=== PATIENT | female | born 1995 | race Caucasian/White ===

== ENCOUNTER 2017-05-16 11:35 | Emergency (ER) | payer BC ==
[~2017-05-16] VITALS: Ht 162.6 cm; Wt 59.0 kg
[~2017-05-16 11:35] MED LIST: ACET-2267 PO; AMOX400T12 PO; CETI10CA PO; FLUT16SP22 NS; IBUP-1773 PO; LEVO500T2 PO; NORG1TAB7 PO; PREN-37 PO; [UNRECOGNIZED DRUG - REMARK]
--- NOTE | 2017-05-16 12:01 | ED GU-Female ---
General Chief Complaint: -Female Stated Complaint: CRAMPING/BLEEDING/11WKS PREG Source: patient Exam Limitations: no limitations History of Present Illness Time seen by provider: 12:00 Initial Comments To ER with reports of suprapubic abdominal cramping and passage of blood clots from the vagina. Began yesterday. She is 11 weeks gestation, G2 1 AB 0. She denies fevers or chills. Timing/Duration: constant, yesterday Severity/Quality: cramping Location: suprapubic Radiation: none Activities at Onset: none Prior Genitourinary Problems: none Allergies and Home Medications Allergies Coded Allergies: NKANo Known Allergies (Unverified Allergy, Mild, 01/16/10) peach (Unverified Allergy, Unknown, 04/22/16) FROM UNCODED ALLERGIES Home Medications Acetaminophen 500 Mg Tablet, 1,000 MG PO Q4H PRN for TEMPERATURE, (Reported) Ibuprofen 600 Mg Tablet, 600 MG PO Q6H, #90 Ref 0 Prescribed by: VERONA HUI on 04/22/16 1250 Levofloxacin 500 Mg Tablet, 500 MG PO DAILY, #5 Ref 0 Prescribed by: ALCON SANDHU on 09/12/16 1511 Norgestimate-Ethinyl Estradiol 1 Each Tablet, 1 TAB PO DAILY, #28 (Reported) Constitutional: see HPI EENTM: see HPI Respiratory: no symptoms reported Cardiovascular: no symptoms reported Genitourinary: see HPI Musculoskeletal: no symptoms reported Skin: no symptoms reported Psychiatric/Neurological: No Symptoms Reported Past [id number] Hx Patient Social History Recent Foreign Travel: No Contact w/Someone Who Travel: No Recent Hopitalizations: No Immunizations Up To Date Tetanus Booster (TDap): Less than 5yrs PED Vaccines UTD: Yes Seasonal Allergies Seasonal Allergies: No Surgeries HX Surgeries: Yes (REPAIR OF ASD/VSD, MUSCULOSKELETAL SURGERY TO STRAIGHTEN LEFT ARM) Surgeries: Adenoidectomy, Cardiac, Tonsillectomy Respiratory Hx Respiratory Disorders: No Cardiovascular Hx Cardiac Disorders: Yes (ASD and VSD REPAIRED) Cardiac Disorders: Congenital Heart Disease Neurological Hx Neurological Disorders: Yes (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) Neurological Disorders: Cerebral Palsy, Stroke Reproductive System Hx Reproductive Disorders: No Sexually Transmitted Disease: No HIV/AIDS: No Female Reproductive Disorders: Denies Genitourinary Hx Genitourinary Disorders: No Gastrointestinal Hx Gastrointestinal Disorders: No Musculoskeletal Hx Musculoskeletal Disorders: No Endocrine Hx Endocrine Disorders: No HEENT HX ENT Disorders: No Cancer Hx Cancer: No Psychosocial Hx Psychiatric Problems: No Integumentary HX Skin/Integumentary Disorder: No Blood Transfusions Hx Blood Disorders: No Adverse Reaction to a Blood Tr: No Family Medical History Family Medial History: Asthma (FATHER) Cervical cancer 19 MOTHER Diabetes mellitus (PGM MGF) FH: cancer (FATHER MGF) FH: heart disease (MGM PGM MGF PGF BROTHER) FH: stroke (MGM) Hypertension (FATHER PGM MGF PGF) Osteoporosis (FATHER) Tetralogy of Fallot (BROTHER) Physical Exam Vital Signs Vital Sign - Last 12Hours 05/16/17 12:06 Temp 97.5 Pulse 86 Resp 16 B/P (MAP) 112/68 Capillary Refill : General Appearance: WD/WN, no apparent distress HEENT: PERRL/EOMI, normal ENT inspection Neck: non-tender, full range of motion Cardiovascular: regular rate, rhythm, no murmur Respiratory: normal breath sounds, no respiratory distress, no accessory muscle use Gastrointestinal: normal bowel sounds, non tender, soft Extremities: normal range of motion, non-tender Neurologic/Psychiatric: alert, normal mood/affect, oriented x 3 Skin: normal color, warm/dry Progress/Results/Core Measures Results/Orders Lab Results Laboratory Tests Test 05/16/17 12:20 Range/Units White Blood Count 8.9 4.3-11.0 10^3/uL Red Blood Count 4.22 L 4.35-5.85 10^6/uL Hemoglobin 13.0 11.5-16.0 G/DL Hematocrit 38 35-52 % Mean Corpuscular Volume 90 80-99 FL Mean Corpuscular Hemoglobin 31 25-34 PG Mean Corpuscular Hemoglobin Concent 34 32-36 G/DL Red Cell Distribution Width 13.2 10.0-14.5 % Platelet Count 230 130-400 10^3/uL Mean Platelet Volume 10.2 7.4-10.4 FL Neutrophils (%) (Auto) 76 H 42-75 % Lymphocytes (%) (Auto) 16 12-44 % Monocytes (%) (Auto) 6 0-12 % Eosinophils (%) (Auto) 1 0-10 % Basophils (%) (Auto) 0 0-10 % Neutrophils # (Auto) 6.7 1.8-7.8 X 10^3 Lymphocytes # (Auto) 1.4 1.0-4.0 X 10^3 Monocytes # (Auto) 0.6 0.0-1.0 X 10^3 Eosinophils # (Auto) 0.1 0.0-0.3 10^3/uL Basophils # (Auto) 0.0 0.0-0.1 10^3/uL My Orders Orders - APOLINAR COTE APRN Ua Culture If Indicated (05/16/17 11:47) Cbc With Automated Diff (05/16/17 11:47) Hcg,Quantitative (05/16/17 11:47) Abo Rh Type (05/16/17 11:47) Us Ob<14 Wks Sngle W/Transvag (05/16/17 11:47) Vital Signs/I&O Vital Sign - Last 12Hours 05/16/17 12:06 Temp 97.5 Pulse 86 Resp 16 B/P (MAP) 112/68 Progress Note : Progress Note 1251--patient did pass a large amount of tissue in the vaginal vault. I was not able to identify a fetus. member of technical staff reports an empty uterus. Departure Impression Impression: Primary Impression: Miscarriage Disposition: 01 HOME, SELF-CARE Condition: Stable Departure-Patient Inst. Decision time for Depature: 12:52 Referrals: TESSIE RALPH MD (PCP/Family) Primary Care Physician Patient Instructions: Miscarriage Add. Discharge Instructions: 1. Return to ER for any fevers or chills 2. Follow-up with your doctor next week for recheck 3. All discharge instructions reviewed with patient and/or family. Voiced understanding. APOLINAR COTE APRN May 16, 2017 12:01
[2017-05-16 12:31] LABS: BASOPHILS % (AUTO) 0 % (0-10); EOSINOPHILS # (AUTO) 0.1 10^3/uL (0.0-0.3); EOSINOPHILS % (AUTO) 1 % (0-10); LYMPHOCYTES # (AUTO) 1.4 X 10^3 (1.0-4.0); LYMPHOCYTES % (AUTO) 16 % (12-44); MEAN CORPUSCULAR HEMOGLOBIN 31 PG (25-34); MEAN CORPUSCULAR HGB CONC 34 G/DL (32-36); MEAN CORPUSCULAR VOLUME 90 FL (80-99); MEAN PLATELET VOLUME 10.2 FL (7.4-10.4); MONOCYTES # (AUTO) 0.6 X 10^3 (0.0-1.0); MONOCYTES % (AUTO) 6 % (0-12); NEUTROPHILS # (AUTO) 6.7 X 10^3 (1.8-7.8); NEUTROPHILS % (AUTO) 76 % (42-75); PLATELET COUNT 230 10^3/uL (130-400); RED BLOOD COUNT 4.22 10^6/uL (4.35-5.85); RED CELL DISTRIBUTION WIDTH 13.2 % (10.0-14.5); WHITE BLOOD COUNT 8.9 10^3/uL (4.3-11.0)
--- NOTE | 2017-05-16 13:16 | Diagnostic Imaging Report ---
PROCEDURE: US OB SINGLE FETUS <14 WKS. TECHNIQUE: Multiple real-time grayscale images were obtained over the gravid uterus in various projections. INDICATION: Vaginal bleeding. Pelvic pain. History of passage of large clot. FINDINGS: The uterus is 7.1 x 6.9 x 5.8 cm. The endometrial stripe is 1.1 cm in thickness. No myometrial focal lesion is seen. There is no intrauterine identified. The right ovary is 3 x 2.6 x 2.5 cm, the left ovary is 3.2 x 2 x 1.4 cm. No adnexal mass is seen. No significant fluid collection or free fluid in noted in the pelvis. IMPRESSION: Given the provided history of passage of large clot, consider possibility of complete . Since no intrauterine is seen at this time, also the possibility of very early normal or occult ectopic could be considered. Correlate clinically, and followup serial beta-hCG and ultrasound if needed is recommended. Dictated by: Dictated on workstation # [id number]
== END 2017-05-16 13:07 | disposition home or self-care (01) ==
LOC: EDUNIT# 11:35 → ER 11:38
DX: O03.9 Complete or unspecified spontaneous abortion without complication (principal); Z86.73 Personal history of transient ischemic attack (TIA), and cerebral infarction without residual deficits; Z90.89 Acquired absence of other organs; Z90.49 Acquired absence of other specified parts of digestive tract; Z86.69 Personal history of other diseases of the nervous system and sense organs
CPT/HCPCS: 36415; 76801; 84702; 85025; 86900; 86901; 99283

== ENCOUNTER → 2017-11-19 | Outpatient (CLI) | payer OTHER, MEDICAID ==
--- NOTE | 2017-11-19 16:07 | Diagnostic Imaging Report ---
INDICATION: survey. TECHNIQUE: Multiple real-time grayscale images were obtained over the gravid uterus. COMPARISON: There are no prior studies for comparison. FINDINGS: There is a single live fetus in variable presentation. heart motion was noted and a rate of 155 BPM was recorded. There were no abnormalities identified. However the four-chamber heart view, the three-vessel cord and the bladder were not well imaged. I would recommend that a short-term (4-6 week) followup exam be performed for further evaluation. The placenta is along left lateral aspect of the uterus and fundal. There is no previa. The amniotic fluid volume is within normal limits. The growth parameters are fairly uniform. Biometrical measurements are as follows: Biparietal 3.5 cm, age 16 weeks 6 days. Head circumference 12.79 cm, age 16 weeks 4 days. Abdominal circumference 10.57 cm, age 16 weeks 4 days. Femur length 2.14 cm, age 16 weeks 3 days. Sonographic estimate age: 16 weeks 5 days. Sonographic estimated date of delivery: 05/01/2018. Estimated Weight: 158 gm (+/- 23 gm). LMP percentile: n/a%. heart rate: 155 beats per minute. number: 1 of 1. IMPRESSION: 1. There is a single live fetus approximately 16 weeks 5 days gestation +/- 1 week. The EDC is May 01, 2018. 2. There are no abnormalities identified. However the four-chamber heart view, the three-vessel cord and the bladder were not well imaged. Recommendations as above. 3. The growth parameters are fairly uniform. Dictated by: Dictated on workstation # [id number]
== END ==
LOC: RAD 15:00
PROVIDERS: ATTEND Family Medicine
DX: Z36.89 Encounter for other specified antenatal screening (principal); Z3A.16 16 weeks gestation of pregnancy
CPT/HCPCS: 76805

== ENCOUNTER → 2018-01-07 | Outpatient (CLI) | payer OTHER, MEDICAID ==
--- NOTE | 2018-01-07 17:09 | Diagnostic Imaging Report ---
INDICATION: survey. TECHNIQUE: Multiple real-time grayscale images were obtained over the gravid uterus. COMPARISON: 11/19/2017. FINDINGS: There is a single living intrauterine in a cephalic presentation. Biometry correlates with a gestational age of 23 weeks 6 days. There is normal volume of amniotic fluid. Placenta is on the left. There is no evidence of previa. Anatomical survey is unremarkable. This includes a three-vessel cord and four-chamber heart. Heart rate is 146 beats per minute and regular. IMPRESSION: Single living intrauterine with a sonographically estimated gestational age of 23 weeks 6 days and estimated date of confinement of April 30, 2018. Fetus is in a cephalic presentation. Biometrical measurements are as follows: Biparietal 5.96 cm, age 24 weeks 3 days. Head circumference 21.70 cm, age 23 weeks 6 days. Abdominal circumference 19.21 cm, age 24 weeks 0 days. Femur length 3.99 cm, age 23 weeks 0 days. Sonographic estimate age: 23 weeks 6 days. Sonographic estimated date of delivery: 04-30-2018. Estimated Weight: 604 gm (+/- 88 gm). LMP percentile: 33%. heart rate: 146 beats per minute. number: 1 of 1. Dictated by: Dictated on workstation # [id number]
== END ==
LOC: RAD 12:54
PROVIDERS: ATTEND Family Medicine
DX: Z36.89 Encounter for other specified antenatal screening (principal); Z3A.23 23 weeks gestation of pregnancy
CPT/HCPCS: 76816

== ENCOUNTER → 2018-03-04 | Outpatient (CLI) | payer OTHER, MEDICAID ==
--- NOTE | 2018-03-04 15:34 | Diagnostic Imaging Report ---
INDICATION: Small for dates. TECHNIQUE: Multiple real-time grayscale images were obtained over the gravid uterus. COMPARISON: 01/07/2018. FINDINGS: There is a single live fetus in a cephalic presentation. The placenta is posterior. The amniotic fluid index is 8.1 cm. heart rate was recorded at 130 beats per minute. No gross abnormality is seen. Biometrical measurements are as follows: Biparietal 7.9 cm, age 31 weeks 5 days. Head circumference 28.0 cm, age 30 weeks 5 days. Abdominal circumference 27.5 cm, age 31 weeks 4 days. Femur length 5.9 cm, age 30 weeks 5 days. Sonographic estimate age: 31 weeks 2 days. Sonographic estimated date of delivery: 05/04/18. Estimated Weight: 1714 gm (+/- 250 gm). LMP percentile: 23%. heart rate: 130 beats per minute. number: 1 of 1. IMPRESSION: Single live IUP at approximately 31 weeks gestational age showing normal interval growth when compared with exam from 01/07/2018. Dictated by: Dictated on workstation # [id number]
== END ==
LOC: RAD 11:21
PROVIDERS: ATTEND Family Medicine
DX: Z34.83 Encounter for supervision of other normal pregnancy, third trimester (principal); Z3A.31 31 weeks gestation of pregnancy
CPT/HCPCS: 76816

== ENCOUNTER 2018-03-05 20:13 | Emergency (ER) | payer OTHER, MEDICAID ==
[~2018-03-05] VITALS: Ht 157.5 cm; Wt 60.3 kg
--- OUTSIDE RECORDS SUMMARY | 2018-03-05 20:18 | XMS REPORT ---
Author Author NIRMAL BECKMAN [facility] eClinicalWorks Address Unknown Phone Unavailable Care Team Providers Care Funeral Pre Arrangement Counselor Name Role Phone NIRMAL BECKMAN Unavailable Allergies No Known Allergies Problems No Known Problems Medications No Known Medications Results No Known Results Summary Purpose eClinicalWorks Submission
--- OUTSIDE RECORDS SUMMARY | 2018-03-05 20:18 | XMS REPORT ---
Author Author NIRMAL BECKMAN [facility] eClinicalWorks Address Unknown Phone Unavailable Care Team Providers Care Grocery Store Clerk Name Role Phone NIRMAL BECKMAN CP Unavailable Allergies No Known Allergies Problems Problem Type Condition Code Onset Dates Condition Status Problem Breech presentation, not applicable or unspecified fetus O32.1XX0 Active Problem Encounter for immunization Z23 Active Problem Right acute otitis media H66.91 Active Problem care, first , third trimester Z34.03 Active Medications No Known Medications Results No Known Results Summary Purpose eClinicalWorks Submission
--- OUTSIDE RECORDS SUMMARY | 2018-03-05 20:18 | XMS REPORT ---
Author Author CHEMA PENN [facility] eClinicalWorks Address Unknown Phone Unavailable Care Team Providers Care Inventory Coordinator Name Role Phone CHEMA PENN Unavailable Allergies No Known Allergies Problems Problem Type Condition Code Onset Dates Condition Status Assessment Encounter for test, result positive Z32.01 Active Problem Physical exam Z00.00 Active Medications No Known Medications Procedures Procedure Coding System Code Date URINE TEST CPT-4 94898 Sep 19, 2015 Results No Known Results Summary Purpose eClinicalWorks Submission
--- OUTSIDE RECORDS SUMMARY | 2018-03-05 20:19 | XMS REPORT ---
Author TESSIE So [facility] eClinicalWorks Address Unknown Phone Unavailable Care Team Providers Care Plastic Tile Layer Name Role Phone TESSIE RALPH CP Unavailable Allergies, Adverse Reactions, Alerts Substance Reaction Event Type peaches Info Not Available Non Drug Allergy Problems Problem Type Condition Code Onset Dates Condition Status Problem Breech presentation, not applicable or unspecified fetus O32.1XX0 Active Problem Encounter for immunization Z23 Active Problem Right acute otitis media H66.91 Active Problem care, first , third trimester Z34.03 Active Assessment Routine follow-up Z39.2 Active Medications Medication Code System Code Instructions Start Date End Date Status Dosage Laure (28) [facility] [place] [id number] 0.18/0.215/0.25 MG-35 MCG Orally Once a day Jun 05, 2016 1 tablet Procedures Procedure Coding System Code Date Office Visit, Est Pt., Level 3 CPT-4 52668 Jun 05, 2016 Results No Known Results Summary Purpose eClinicalWorks Submission
--- OUTSIDE RECORDS SUMMARY | 2018-03-05 20:19 | XMS REPORT ---
Author Author NIRMAL BECKMAN [facility] Address [address] [place] [address] Care Team Providers Care Reliability Technicians Name Role Phone NIRMAL BECKMAN Unavailable PROBLEMS Type Condition ICD9-CM Code UHQ43-YR Code Onset Dates Condition Status SNOMED Code Problem Right acute otitis media H66.91 Active 765337659 Problem Breech presentation, not applicable or unspecified fetus O32.1XX0 Active 0608839 Problem Encounter for immunization Z23 Active 627529593 Problem care, first , third trimester Z34.03 Active 325778708 ALLERGIES No Known Allergies SOCIAL HISTORY No smoking Hx information available PLAN OF CARE VITAL SIGNS MEDICATIONS No Known Medications RESULTS No Results PROCEDURES No Known procedures IMMUNIZATIONS No Known Immunizations
--- OUTSIDE RECORDS SUMMARY | 2018-03-05 20:19 | XMS REPORT ---
Author Author SHAW IAN Organization [facility] Address [address] [place] [address] Care Team Providers Care Sweep Press Operator Name Role Phone IAN SQUIRES Unavailable PROBLEMS Type Condition ICD9-CM Code LUR58-CM Code Onset Dates Condition Status SNOMED Code Problem Right acute otitis media H66.91 Active 625620825 Problem Breech presentation, not applicable or unspecified fetus O32.1XX0 Active 0561425 Problem Encounter for immunization Z23 Active 368160186 Problem care, first , third trimester Z34.03 Active 597421304 ALLERGIES Substance Reaction Event Type Date Status peaches Unknown Non Drug Allergy Oct, Active SOCIAL HISTORY No smoking Hx information available PLAN OF CARE Activity Details Follow Up 2 - 3 Days, prn Reason: VITAL SIGNS Height 62.5 in 2016-10-18 Weight 115.4 lbs 2016-10-18 Temperature 97.9 degrees Fahrenheit 2016-10-18 Heart Rate 76 bpm 2016-10-18 Respiratory Rate 18 2016-10-18 BMI 20.77 kg/m2 2016-10-18 Blood pressure systolic 108 mmHg 2016-10-18 Blood pressure diastolic 64 mmHg 2016-10-18 MEDICATIONS Medication Instructions Dosage Frequency Start Date End Date Duration Status Amoxicillin 500 MG Orally 3 times a day 1 tablet 8h Oct, Oct, 10 day(s) Active RESULTS Name Result Date Reference Range STREP A (IN HOUSE) 2016-10-18 STREP A positive Control + Lot # [id number] Exp date april 29 PROCEDURES Procedure Date Ordered Related Diagnosis Body Site STREP A ASSAY W/OPTIC Oct 18, 2016 Office Visit, Est Pt., Level 3 Oct 18, 2016 IMMUNIZATIONS No Known Immunizations
--- OUTSIDE RECORDS SUMMARY | 2018-03-05 20:19 | XMS REPORT ---
Author Author TESSIE RALPH Organization [facility] Address [address] [place] [address] Care Team Providers Care Sausage Wrapper Name Role Phone TESSIE RALPH Unavailable PROBLEMS Type Condition ICD9-CM Code TRE76-FW Code Onset Dates Condition Status SNOMED Code Problem Missed period N92.6 Active 13209811 ALLERGIES Substance Reaction Event Type Date Status peaches Unknown Non Drug Allergy Apr, Active ENCOUNTERS Encounter Location Date Diagnosis [facility] [id number] [place] [address] 61666- 0199 Jan, [facility] [address] [address]098 Dec, care, first , third trimester Z34.03 [facility] [id number] [place] [address] 35413- 5198 Nov, Encounter for supervision of normal first in second trimester Z34.02 [facility] [id number] [place] [address] 80727- 2700 Nov, [facility] [id number] [place] [address] 56381- 8386 Oct, Normal in multigravida Z34.80 [facility] [id number] [place] [address] 78187- 2038 Oct, [facility] [id number] [place] [address] 21801- 9545 Oct, [facility] [id number] [place] [address] 49034- 5273 Oct, [facility] [id number] [place] [address] 82400 -0248 Oct, Missed period N92.6 [facility] [id number] [place] [address] 21187 -1436 May, Acute suppurative otitis media of left ear without spontaneous rupture of tympanic membrane, recurrence not specified H66.002 [place] [id number] [place] [address] 51815- 4481 May, in first trimester Z33.2 [place] [address] 030[address]- 2936 May, [place] [address] 20250- 5660 Apr, 9 weeks gestation of Z3A.09 and Normal in multigravida Z34.80 [place] [address] 41278- 8601 Apr, [place] [address] 55575- 1002 Apr, [facility] [place] [id number] [place] [address] 95807 -8168 Apr, Positive test Z32.01 and Otalgia of right ear H92.01 [facility] [place] [id number] [place] [address] 92357 -2102 Mar, Abrasion, foot, right, initial encounter S90.811A [place] [id number] [place] [address] 97614- 6752 February, [place] [id number] [place] [address] 14154- 2875 Jan, [place] [address] 65517- 5282 Nov, [facility] [id number] [place] [address] 30719 -5560 Oct, Sore throat J02.9 and Strep throat J02.0 [facility] [address] [address] Sep, [facility] [address] [address] 2815 Aug, [facility] [address] [place] [address]- 4394 Aug, [facility] [address], [place] [address]- 6625 Jun, [facility] [address], [place] [address]- 2[address] May, [facility] [address] [address]- 8679 May, Routine follow-up Z39.2 [facility] [address] [place] [address] Apr, Right acute otitis media H66.91 [facility] [address], [place] [address]- 15[address] Apr, [facility] [address], [place] [address]- 5[address] Apr, care, first , third trimester Z34.03 and 39 weeks gestation of Z3A.39 [facility] [address], [place] [address] 0678 Mar, care, first , third trimester Z34.03 and 38 weeks gestation of Z3A.38 [facility] [address], [place] [address] 5[address] Mar, [facility] [address] [place] [address]- 3923 Mar, care, first , third trimester Z34.03 and 36 weeks gestation of Z3A.36 [facility] [id number], [place] [address]- 7297 Mar, [place] [address], [place] [address]- 4988 Mar, [place] [id number] [place] [address] 50317- 1102 Mar, [place] [id number] [place] [address] 00102- 2248 Mar, screening for streptococcus B Z36 ; care , first , third trimester Z34.03 ; Breech presentation, not applicable or unspecified fetus O32.1XX0 and 35 weeks gestation of Z3A.35 [place] [id number] [place] [address] 89832- 0929 02 Mar, 2016 care, first , third trimester Z34.03 ; 34 weeks gestation of Z3A.34 and Breech presentation, not applicable or unspecified fetus O32.1XX0 [place] [id number] [place] [address] 53015- 6569 February, care, first , third trimester Z34.03 ; 32 weeks gestation of Z3A.32 ; Syncope, unspecified syncope type R55 ; Poor appetite R63.0 ; Acute midline low back pain without sciatica M54.5 and Encounter for immunization Z23 [address] [place] [address] 94713- 0549 February, [place] [id number] [place] [address] 86068- 8232 February, [place] [id number] [place] [address] 39173- 1639 February, care, first , third trimester Z34.03 and 30 weeks gestation of Z3A.30 [place] [id number] [place] [address] 81171- 4210 08 Jan, 2016 Encounter for supervision of normal first in second trimester Z34.02 ; Diabetes mellitus screening Z13.1 ; Screening, iron deficiency anemia Z13.0 and 26 weeks gestation of Z3A.26 [place] [address], [place] [address]- 2896 Jan, [place] [address], [place] [address]- 4273 Dec, [place] [address], [place] [address]- 0130 Dec, [place] [address], [place] [address]- 2751 Dec, Encounter for supervision of normal first in second trimester Z34.02 and 22 weeks gestation of Z3A.22 [place] [address], [place] [address]- 12[address] Dec, [place] [address], [place] [address]- 2694 Dec, Acute upper respiratory infection, unspecified J06.9 and Other viral agents as the cause of diseases classified elsewhere B97.89 [place] [address], [place] [address]- 1515 Nov, Encounter for supervision of normal first in second trimester Z34.02 ; Vaginal candidiasis B37.3 and 18 weeks gestation of Z3A.18 [place] [address], [place] [address]- 3460 Nov, [place] [address], [place] [address]- 6122 Oct, [place] [id number], [place] [address]- 5911 Oct, [place] [address], [place] [address]- 2885 Oct, Encounter for supervision of normal first in second trimester Z34.02 and 15 weeks gestation of Z3A.15 [place] [id number], [place] [address]- 6042 Sep, Encounter for supervision of normal first in first trimester Z34.01 ; Z33.1 and 11 weeks gestation of Z3A.11 [facility] [address], [place] [address]- 9809 Sep, [facility] [address] [id number] [place] [address] Sep [facility] [id number] [place] [address] 65709 -9471 Sep, Encounter for test, result positive Z32.01 [facility] [id number] [place] [address] 29125- 1570 17 Aug, 2015 Environmental allergies Z91.09 and Sore throat J02.9 [facility] [id number] [place] [address] 25196- 9504 Jul, Physical exam Z00.00 [facility] [address] [place] [address] [id number] May, Dental examination V72.2 [facility] [id number] [place] [address] 15378- 1368 Jan, [facility] [id number] [place] [address] 51720- 8085 Jan, [facility] [id number] [place] [address] 73358- 7520 Dec, [facility] [id number] [place] [address] 01361- 4953 Dec, [facility] [id number] [place] [address] 89627- 5447 Sep, [facility] [id number] [place] [address] 37225- 1020 Sep, [facility] [id number] [place] [address] 06851- 5501 Aug, [facility] [id number] [place] [address] 53270- 6343 Aug, [facility] [address] [id number] [place] [address]- 8625 Jan, [facility] [address] [id number] [place] [address]- 8699 Jan, [facility] [place] [facility] [address] [id number] [place] [address]- 7796 Sep, [facility] [place] [facility] [address] [id number] [place] [address]- 3640 Sep, [facility] [place] [facility] [address] [id number] [place] [address]- 1356 Sep, [facility] [place] [facility] [address] [id number] [place] [address]- 3659 Sep, [facility] [address] [id number] [place] [address]- 3025 Jan, [facility] [address] [id number] [place] [address]- 0837 Nov, [facility] [address] [id number] [place] [address]- 9776 Oct, [facility] [address] [id number] [place] [address]- 1344 Jul, [facility] [place] [facility] [address] [id number] [place] [address]- 0374 Jul, [facility] [place] [facility] [address] [id number] [place] [address]- 2932 Jul, [facility] [place] [facility] [address] [id number] [place] [address]- 1792 Jul, [facility] [place] [facility] [address] [id number] [place] [address]- 2209 Oct, [facility] [place] [facility] [address] [id number] [place] [address]- 6216 Dec, [facility] [place] [facility] [address] [id number] [address]- 4766 Jul, [facility] [id number], [place] [address]- 9623 May, [facility] [id number], [place] [address]- 5466 Mar, [facility] [address], [place] [address]- 0546 Sep, [facility] [address], [place] [address]- 5678 Sep, [facility] [address], [place] [address]- 9834 Jul, [facility] [address], [place] [address]- 4514 Jul, [facility] [address], [place] [address]- 9401 February, [facility] [id number], [place] [address]- 7684 Jan, IMMUNIZATIONS No Known Immunizations SOCIAL HISTORY Never Assessed REASON FOR VISIT OB-intake -- vincent agudelo PLAN OF CARE Activity Details Follow Up 4 Weeks Reason: VITAL SIGNS Height 62.5 in 2017-05-07 Weight 108.7 lbs 2017-05-07 Temperature 98.7 degrees Fahrenheit 2017-05-07 BMI 19.565 kg/m2 2017-05-07 Blood pressure systolic 118 mmHg 2017-05-07 Blood pressure diastolic 76 mmHg 2017-05-07 MEDICATIONS Medication Instructions Dosage Frequency Start Date End Date Duration Status Vitamins (Dis) Active RESULTS Name Result Date Reference Range TSH () 2017-05-07 TSH 0.801 0.450-4.500 CBC 2017-05-07 WBC 6.9 3.4-10.8 RBC 3.99 3.77-5.28 Hemoglobin 12.3 11.1-15.9 Hematocrit 36.3 34.0-46.6 MCV 91 79-97 MCH 30.8 26.6-33.0 MCHC 33.9 31.5-35.7 RDW 13.3 12.3-15.4 Platelets 285 150-379 Neutrophils 65 Lymphs 27 Monocytes 6 Eos 1 Basos 1 Neutrophils (Absolute) 4.5 1.4-7.0 Lymphs (Absolute) 1.8 0.7-3.1 Monocytes(Absolute) 0.4 0.1-0.9 Eos (Absolute) 0.1 0.0-0.4 Baso (Absolute) 0.1 0.0-0.2 Immature Granulocytes 0 Immature Grans (Abs) 0.0 0.0-0.1 ANTIBODY SCREEN 2017-05-07 Antibody Screen Negative Negative RUBELLA ANTIBODIES, IgG 2017-05-07 Rubella Antibodies, IgG 2.21 Immune >0.99 CULTURE, URINE 2017-05-07 Urine Culture, Routine Final report Result 1 No growth TRICHOMONAS (IN HOUSE) 2017-05-07 TRICHOMONAS negative Control + Lot # [id number] Exp date 06/2018 URINE DRUG SCREEN (IN HOUSE) 2017-05-07 Lot # [id number] Exp date 08/2018 Control normal COCAINE negative AMPH negative MTD negative THC negative OPIATE negative BENZO negative PCP negative BAR negative OXY negative MAMP negative TCA negative BUP Not Tested MDMA negative UA LONG DIP (IN HOUSE) 2017-05-07 Lot # [id number] Exp date 02/2018 Clarity slightly cloudy Color yellow Odor none GLU negative NINA negative KET negative SG 1.015 BLO negative pH 8.5 Protein 2+ URO 1.0 NIT negative ANUPAM negative Lot # Exp BACTERIAL VAGINOSIS (IN HOUSE) 2017-05-07 RESULTS negative Control + Lot # [id number] Exp date 11/30 TSH () 2017-05-07 TSH 0.801 0.450-4.500 CBC 2017-05-07 WBC 6.9 3.4-10.8 RBC 3.99 3.77-5.28 Hemoglobin 12.3 11.1-15.9 Hematocrit 36.3 34.0-46.6 MCV 91 79-97 MCH 30.8 26.6-33.0 MCHC 33.9 31.5-35.7 RDW 13.3 12.3-15.4 Platelets 285 150-379 Neutrophils 65 Lymphs 27 Monocytes 6 Eos 1 Basos 1 Neutrophils (Absolute) 4.5 1.4-7.0 Lymphs (Absolute) 1.8 0.7-3.1 Monocytes(Absolute) 0.4 0.1-0.9 Eos (Absolute) 0.1 0.0-0.4 Baso (Absolute) 0.1 0.0-0.2 Immature Granulocytes 0 Immature Grans (Abs) 0.0 0.0-0.1 ANTIBODY SCREEN 2017-05-07 Antibody Screen Negative Negative RUBELLA ANTIBODIES, IgG 2017-05-07 Rubella Antibodies, IgG 2.21 Immune >0.99 CULTURE, URINE 2017-05-07 Urine Culture, Routine Final report Result 1 No growth GC/CHLAM PROBE (STATE) 2017-05-07 CHLAMYDIA GC TRICHOMONAS (IN HOUSE) 2017-05-07 TRICHOMONAS negative Control + Lot # [id number] Exp date 06/2018 URINE DRUG SCREEN (IN HOUSE) 2017-05-07 Lot # [id number] Exp date 08/2018 Control normal COCAINE negative AMPH negative MTD negative THC negative OPIATE negative BENZO negative PCP negative BAR negative OXY negative MAMP negative TCA negative BUP Not Tested MDMA negative UA LONG DIP (IN HOUSE) 2017-05-07 Lot # [id number] Exp date 02/2018 Clarity slightly cloudy Color yellow Odor none GLU negative NINA negative KET negative SG 1.015 BLO negative pH 8.5 Protein 2+ URO 1.0 NIT negative ANUPAM negative Lot # Exp BACTERIAL VAGINOSIS (IN HOUSE) 2017-05-07 RESULTS negative Control + Lot # [id number] Exp date 11/30 TSH () 2017-05-07 TSH 0.801 0.450-4.500 CBC 2017-05-07 WBC 6.9 3.4-10.8 RBC 3.99 3.77-5.28 Hemoglobin 12.3 11.1-15.9 Hematocrit 36.3 34.0-46.6 MCV 91 79-97 MCH 30.8 26.6-33.0 MCHC 33.9 31.5-35.7 RDW 13.3 12.3-15.4 Platelets 285 150-379 Neutrophils 65 Lymphs 27 Monocytes 6 Eos 1 Basos 1 Neutrophils (Absolute) 4.5 1.4-7.0 Lymphs (Absolute) 1.8 0.7-3.1 Monocytes(Absolute) 0.4 0.1-0.9 Eos (Absolute) 0.1 0.0-0.4 Baso (Absolute) 0.1 0.0-0.2 Immature Granulocytes 0 Immature Grans (Abs) 0.0 0.0-0.1 ANTIBODY SCREEN 2017-05-07 Antibody Screen Negative Negative RUBELLA ANTIBODIES, IgG 2017-05-07 Rubella Antibodies, IgG 2.21 Immune >0.99 CULTURE, GENITAL 2017-05-07 Genital Culture, Routine Final report Result 1 Yeast isolated. Result 2 CULTURE, URINE 2017-05-07 Urine Culture, Routine Final report Result 1 No growth GC/CHLAM PROBE (STATE) 2017-05-07 CHLAMYDIA GC TRICHOMONAS (IN HOUSE) 2017-05-07 TRICHOMONAS negative Control + Lot # [id number] Exp date 06/2018 URINE DRUG SCREEN (IN HOUSE) 2017-05-07 Lot # [id number] Exp date 08/2018 Control normal COCAINE negative AMPH negative MTD negative THC negative OPIATE negative BENZO negative PCP negative BAR negative OXY negative MAMP negative TCA negative BUP Not Tested MDMA negative UA LONG DIP (IN HOUSE) 2017-05-07 Lot # [id number] Exp date 02/2018 Clarity slightly cloudy Color yellow Odor none GLU negative NINA negative KET negative SG 1.015 BLO negative pH 8.5 Protein 2+ URO 1.0 NIT negative ANUPAM negative Lot # Exp BACTERIAL VAGINOSIS (IN HOUSE) 2017-05-07 RESULTS negative Control + Lot # [id number] Exp date 11/30 TSH () 2017-05-07 TSH 0.801 0.450-4.500 CBC 2017-05-07 WBC 6.9 3.4-10.8 RBC 3.99 3.77-5.28 Hemoglobin 12.3 11.1-15.9 Hematocrit 36.3 34.0-46.6 MCV 91 79-97 MCH 30.8 26.6-33.0 MCHC 33.9 31.5-35.7 RDW 13.3 12.3-15.4 Platelets 285 150-379 Neutrophils 65 Lymphs 27 Monocytes 6 Eos 1 Basos 1 Neutrophils (Absolute) 4.5 1.4-7.0 Lymphs (Absolute) 1.8 0.7-3.1 Monocytes(Absolute) 0.4 0.1-0.9 Eos (Absolute) 0.1 0.0-0.4 Baso (Absolute) 0.1 0.0-0.2 Immature Granulocytes 0 Immature Grans (Abs) 0.0 0.0-0.1 ANTIBODY SCREEN 2017-05-07 Antibody Screen Negative Negative RUBELLA ANTIBODIES, IgG 2017-05-07 Rubella Antibodies, IgG 2.21 Immune >0.99 CULTURE, GENITAL 2017-05-07 Genital Culture, Routine Final report Result 1 Yeast isolated. Result 2 CULTURE, URINE 2017-05-07 Urine Culture, Routine Final report Result 1 No growth GC/CHLAM PROBE (STATE) 2017-05-07 CHLAMYDIA GC TRICHOMONAS (IN HOUSE) 2017-05-07 TRICHOMONAS negative Control + Lot # [id number] Exp date 06/2018 URINE DRUG SCREEN (IN HOUSE) 2017-05-07 Lot # [id number] Exp date 08/2018 Control normal COCAINE negative AMPH negative MTD negative THC negative OPIATE negative BENZO negative PCP negative BAR negative OXY negative MAMP negative TCA negative BUP Not Tested MDMA negative UA LONG DIP (IN HOUSE) 2017-05-07 Lot # [id number] Exp date 02/2018 Clarity slightly cloudy Color yellow Odor none GLU negative NINA negative KET negative SG 1.015 BLO negative pH 8.5 Protein 2+ URO 1.0 NIT negative ANUPAM negative Lot # Exp BACTERIAL VAGINOSIS (IN HOUSE) 2017-05-07 RESULTS negative Control + Lot # [id number] Exp date 11/30 Ultrasound : OB, Early <14 WEEKS 2017-05-16 TSH () 2017-05-07 TSH 0.801 0.450-4.500 CBC 2017-05-07 WBC 6.9 3.4-10.8 RBC 3.99 3.77-5.28 Hemoglobin 12.3 11.1-15.9 Hematocrit 36.3 34.0-46.6 MCV 91 79-97 MCH 30.8 26.6-33.0 MCHC 33.9 31.5-35.7 RDW 13.3 12.3-15.4 Platelets 285 150-379 Neutrophils 65 Lymphs 27 Monocytes 6 Eos 1 Basos 1 Neutrophils (Absolute) 4.5 1.4-7.0 Lymphs (Absolute) 1.8 0.7-3.1 Monocytes(Absolute) 0.4 0.1-0.9 Eos (Absolute) 0.1 0.0-0.4 Baso (Absolute) 0.1 0.0-0.2 Immature Granulocytes 0 Immature Grans (Abs) 0.0 0.0-0.1 ANTIBODY SCREEN 2017-05-07 Antibody Screen Negative Negative RUBELLA ANTIBODIES, IgG 2017-05-07 Rubella Antibodies, IgG 2.21 Immune >0.99 CULTURE, GENITAL 2017-05-07 Genital Culture, Routine Final report Result 1 Yeast isolated. Result 2 CULTURE, URINE 2017-05-07 Urine Culture, Routine Final report Result 1 No growth GC/CHLAM PROBE (STATE) 2017-05-07 CHLAMYDIA GC SYPHILIS (STATE) 2017-05-07 TRICHOMONAS (IN HOUSE) 2017-05-07 TRICHOMONAS negative Control + Lot # [id number] Exp date 06/2018 URINE DRUG SCREEN (IN HOUSE) 2017-05-07 Lot # [id number] Exp date 08/2018 Control normal COCAINE negative AMPH negative MTD negative THC negative OPIATE negative BENZO negative PCP negative BAR negative OXY negative MAMP negative TCA negative BUP Not Tested MDMA negative UA LONG DIP (IN HOUSE) 2017-05-07 Lot # [id number] Exp date 02/2018 Clarity slightly cloudy Color yellow Odor none GLU negative NINA negative KET negative SG 1.015 BLO negative pH 8.5 Protein 2+ URO 1.0 NIT negative ANUPAM negative Lot # Exp date HIV (STATE) 2017-05-07 HEP B SURFACE ANTIGEN (STATE) 2017-05-07 HEP B ANTIBODY non reactive HEP B ANTIBODY (RML) HEP B ANTIBODY (STATE) BACTERIAL VAGINOSIS (IN HOUSE) 2017-05-07 RESULTS negative Control + Lot # [id number] Exp date 11/30 Ultrasound : OB, Early <14 WEEKS 2017-05-16 PROCEDURES Procedure Date Ordered Result Body Site TRICHOMONAS ASSAY W/OPTIC May 07, 2017 VENIPUNCT, ROUTINE* May 07, 2017 URINE CULTURE/COLONY COUNT May 07, 2017 DRUG TEST PRSMV DIR OPT OBS May 07, 2017 CULTURE, BACTERIA, OTHER May 07, 2017 RUBELLA ANTIBODY May 07, 2017 BRAMBILA VAG, DNA, DIR PROBE May 07, 2017 ASSAY THYROID STIM HORMONE May 07, 2017 RBC ANTIBODY SCREEN May 07, 2017 COMPLETE CBC W/AUTO DIFF WBC May 07, 2017 No Charge May 07, 2017 INSTRUCTIONS MEDICATIONS ADMINISTERED No Known Medications MEDICAL (GENERAL) HISTORY Type Description Date Medical History congenital heart defect (large secundum ASD) Medical 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
--- OUTSIDE RECORDS SUMMARY | 2018-03-05 20:20 | XMS REPORT ---
Author Author KARUNA NIRMAL [facility] Address [address] [place] [address] Care Team Providers Care Salt Cutter Name Role Phone KARUNATOMER SHELLHANY Unavailable PROBLEMS Type Condition ICD9-CM Code LUE91-VM Code Onset Dates Condition Status SNOMED Code Problem Missed period N92.6 Active [id number] ALLERGIES No Information ENCOUNTERS Encounter Location Date Diagnosis [place] [address] [address] February, [place] [address] [address] Jan, care, first , third trimester Z34.03 [place] [address] [place] [id number] [place] [address] 40899- 9502 Dec, care, first , third trimester Z34.03 [place] [address] [address] Nov, Encounter for supervision of normal first in second trimester Z34.02 [place] [address] [place] [id number] [place] [address] 10506- 8856 Nov, [place] [address] [place] [id number] [place] [address] 85578- 9992 Oct, Normal in multigravida Z34.80 [place] [address] 41588- 6123 Oct, [place] [address] [place] [id number] [place] [address] 70374- 3436 Oct, [place] [address] 8[address]69- 6407 Oct, [facility] [address], [place] [address] Oct, Missed period N92.6 [facility] [place] [address] [place] [id number] [place] [address] May, Acute suppurative otitis media of left ear without spontaneous rupture of tympanic membrane, recurrence not specified H66.002 [place] [address] [place] [id number] [place] [address] 98565- 9618 May, in first trimester Z33.2 [place] [address] [place] [id number] [place] [address] 54711- 6225 May, [place] [address] [place] [id number] [place] [address] 89928- 0434 Apr, 9 weeks gestation of Z3A.09 and Normal in multigravida Z34.80 [place] [address] [place] [id number] [place] [address] 70269- 3649 Apr, [place] [address] [place] [id number] [place] [address] 45564- 6103 Apr, [facility] [place] [address] [place] [id number] [place] [address] 55929 -3595 Apr, Positive test Z32.01 and Otalgia of right ear H92.01 [facility] [place] [id number] [place] [address]2591 -5121 Mar, Abrasion, foot, right, initial encounter S90.811A [place] [address] [place] [id number] [place] [address] 46857- 3283 February, [place] [address] [place] [id number] [place] [address] 46091- 9549 Jan, [place] [id number] [place] [address] 90336- 3378 Nov, [facility] [address] [place] [id number] [place] [address] [place] [address] Oct, Sore throat J02.9 and Strep throat J02.0 [facility] [address], [place] [address] Sep, [facility] [id number], [place] [address] Aug, [facility] [address] [place] [id number] [place] [address] 31224- 7005 Aug, [facility] [id number], [place] [address] 79[address] Jun, [facility] [id number], [place] [address] May, [facility] [address], [place] [address] May, Routine follow-up Z39.2 [facility] [address], [place] [address] Apr, Right acute otitis media H66.91 [facility] [id number], [place] [address] Apr, [facility] [id number] [address] Apr, care, first , third trimester Z34.03 and 39 weeks gestation of Z3A.39 [facility] [address], [place] [address] Mar, care, first , third trimester Z34.03 and 38 weeks gestation of Z3A.38 [facility] [address], [place] [address] 3[address] Mar, [facility] [id number], [place] [address] Mar, care, first , third trimester Z34.03 and 36 weeks gestation of Z3A.36 [place] [address], [place] [address] 9[address] Mar, [place] [address] [place] [id number] [place] [address] 24612- 0647 Mar, [place] [id number] [place] [address] 86611- 7101 Mar, [place] [address] [place] [id number] [place] [address] 92261- 1233 Mar, screening for streptococcus B Z36 ; care , first , third trimester Z34.03 ; Breech presentation, not applicable or unspecified fetus O32.1XX0 and 35 weeks gestation of Z3A.35 [place] [address] [place] [id number] [place] [address] 75075- 4342 Mar, care, first , third trimester Z34.03 ; 34 weeks gestation of Z3A.34 and Breech presentation, not applicable or unspecified fetus O32.1XX0 [place] [id number] [place] [address] 69508- 5276 February, care, first , third trimester Z34.03 ; 32 weeks gestation of Z3A.32 ; Syncope, unspecified syncope type R55 ; Poor appetite R63.0 ; Acute midline low back pain without sciatica M54.5 and Encounter for immunization Z23 [place] [id number] [place] [address] 45100- 4345 February, [place] [id number] [place] [address] 71090- 7241 February, [place] [address] [place] [id number] [place] [address] 45288- 6789 February, care, first , third trimester Z34.03 and 30 weeks gestation of Z3A.30 [place] [id number] [place] [address] 64142- 0109 Jan, Encounter for supervision of normal first in second trimester Z34.02 ; Diabetes mellitus screening Z13.1 ; Screening, iron deficiency anemia Z13.0 and 26 weeks gestation of Z3A.26 [place] [id number] [place] [address] 33918- 2424 08 Jan, 2016 [place] [address] [place] [id number] [place] [address] 47648- 7483 Dec, [place] [address] [place] [id number] [place] [address] 52221- 3372 Dec, [place] [address] [place] [id number] [place] [address] 99308- 5592 Dec, Encounter for supervision of normal first in second trimester Z34.02 and 22 weeks gestation of Z3A.22 [place] [address] [place] [id number] [place] [address] 87154- 6382 Dec, [place] [id number] [place] [address] 99436- 1258 Dec, Acute upper respiratory infection, unspecified J06.9 and Other viral agents as the cause of diseases classified elsewhere B97.89 [place] [id number] [place] [address] 68890- 6710 12 Nov, 2015 Encounter for supervision of normal first in second trimester Z34.02 ; Vaginal candidiasis B37.3 and 18 weeks gestation of Z3A.18 [address], [place] [address] Nov, [place] [address] [place] [id number] [place] [address] 00067- 2571 Oct, [place] [address] [place] [id number] [place] [address] 72902- 6101 Oct, [place] [address] [place] [id number] [place] [address] 74178- 8865 Oct, Encounter for supervision of normal first in second trimester Z34.02 and 15 weeks gestation of Z3A.15 [place] [address] [place] [id number] [place] [address] 29578- 0724 Sep, Encounter for supervision of normal first in first trimester Z34.01 ; Z33.1 and 11 weeks gestation of Z3A.11 [facility] [address] [place] [id number] [place] [address] 01693- 9421 Sep, [facility] [address] [id number] [place] [address] Sep [facility] [address] [place] [id number] [place] [address] 31916 -0268 Sep, Encounter for test, result positive Z32.01 [facility] [address] 64442- 9994 17 Aug, 2015 Environmental allergies Z91.09 and Sore throat J02.9 [facility] [address] 86392- 8077 Jul, Physical exam Z00.00 [facility] [address] [id number] May, Dental examination V72.2 [facility] [address] 88891- 7267 Jan, [facility] [address] [place] [id number] [place] [address] 92234- 8174 Jan, [facility] [address] [place] [id number] [place] [address] 58179- 8998 Dec, [facility] [address] [place] [id number] [place] [address] 20250- 0240 Dec, [facility] [address] 96465- 5184 Sep, [facility] [address] [place] [id number] [place] [address] 75042- 7734 Sep, [facility] [address] [place] [id number] [place] [address] 23506- 4617 Aug, [facility] [place] [facility] [address] [id number] [place] [address]- 1140 Aug, [facility] [place] [facility] [address] [id number] [place] [address]- 7467 Jan, [facility] [place] [facility] [address] [id number] [place] [address]- 5476 Jan, [facility] [place] [facility] [address] [id number] [place] [address]- 1647 Sep, [facility] [place] [facility] [address] [id number] [place] [address]- 7053 Sep, [facility] [place] [facility] [address] [id number] [place] [address]- 4154 Sep, [facility] [place] [facility] [address] [id number] [place] [address]- 3842 Sep, [facility] [place] [facility] [address] [id number] [place] [address]- 0788 Jan, [facility] [place] [facility] [address] [id number] [place] Nov, [facility] [place] [facility] [address] [id number] [place] [address]- 4681 Oct, [facility] [place] [facility] [address] [id number] [place] [address]- 3660 Jul, [facility] [place] [facility] [address] [id number] [place] [address]- 7331 Jul, [facility] [place] [facility] [address] [id number] [place] [address]- 2959 Jul, [facility] [place] [facility] [address] [id number] [place] [address]- 4146 Jul, [facility] [place] [facility] [address] [id number] [place] [address]- 2945 Oct, [facility] [place] [facility] [address] [id number] [place] [address]- 4267 Dec, [facility] [address] [place] [id number] [address] 2546 Jul, [facility] [id number], [place] [address]- 2546 May, [facility] [address], [place] [address]- 2546 Mar, [facility] [address] [place] [id number] [address]- 2546 Sep, [facility] [address], [place] [address]- 2546 Sep, [facility] [id number] [place] [address] 08701- 2546 Jul, [facility] [address], [place] [address]- 2546 Jul, [facility] [id number] [place] [address]- 25[address] February, [facility] [address], [place] [address]- 2546 Jan, IMMUNIZATIONS No Known Immunizations SOCIAL HISTORY Never Assessed REASON FOR VISIT PLAN OF CARE VITAL SIGNS MEDICATIONS Unknown Medications RESULTS No Results PROCEDURES No Known procedures INSTRUCTIONS MEDICATIONS ADMINISTERED No Known Medications MEDICAL [...]
--- OUTSIDE RECORDS SUMMARY | 2018-03-05 20:20 | XMS REPORT ---
Author Author NIRMAL BECKMAN [facility] e[employer] Address Unknown Phone Unavailable Care Team Providers Care Intensive Care Medicine Specialist Name Role Phone NIRMAL BECKMAN CP Unavailable [...]
--- OUTSIDE RECORDS SUMMARY | 2018-03-05 20:20 | XMS REPORT ---
Author Author NIRMAL BECKMAN [facility] eClinicalWorks Address Unknown Phone Unavailable Care Team Providers Care Tractor Operator Battery Name Role Phone NIRMAL BECKMAN Unavailable Allergies No Known Allergies Problems Problem Type Condition Code Onset Dates Condition Status Problem care, first , third trimester Z34.03 Active Medications No Known Medications Results No Known Results Summary Purpose eClinicalWorks Submission
--- OUTSIDE RECORDS SUMMARY | 2018-03-05 20:20 | XMS REPORT ---
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
--- OUTSIDE RECORDS SUMMARY | 2018-03-05 20:20 | XMS REPORT ---
Author Author ASCENCION CAPELLAN Organization [employer] Address Unknown Phone Unavailable Care Team Providers Care Assistant Elementary Teacher Name Role Phone ASCENCION CAPELLAN CP Unavailable Allergies, Adverse Reactions, Alerts Substance Reaction Event Type peaches Info Not Available Non Drug Allergy Problems Problem Type Condition Code Onset Dates Condition Status Problem Breech presentation, not applicable or unspecified fetus O32.1XX0 Active Problem Encounter for immunization Z23 Active Problem Right acute otitis media H66.91 Active Problem care, first , third trimester Z34.03 Active Assessment Right acute otitis media H66.91 Active Medications Medication Code System Code Instructions Start Date End Date Status Dosage Amoxicillin [facility] [address]-89 875 MG Orally every 12 hrs April 25, 2016 May 05, 2016 1 tablet Procedures Procedure Coding System Code Date Office Visit, Est Pt., Level 3 CPT-4 24487 April 25, 2016 Vital Signs Date/Time: April 25, 2016 Cardiac Monitoring Heart Rate 76 bpm Weight 131.2 lbs Height 62.5 in BMIPercentile 71.45 % Wt Percentile 59.65 % Blood Pressure Diastolic 74 mmHg Blood Pressure Systolic 120 mmHg Results No Known Results Summary Purpose eClinicalWorks Submission
--- OUTSIDE RECORDS SUMMARY | 2018-03-05 20:20 | XMS REPORT ---
Author Author NIRMAL BECKMAN [facility] eClinicalWorks Address Unknown Phone Unavailable Care Team Providers Care Sawmill Equipment Operator Name Role Phone NIRMAL BECKMAN Unavailable Allergies No Known Allergies Problems No Known Problems Medications No Known Medications Results No Known Results Summary Purpose eClinicalWorks Submission
--- OUTSIDE RECORDS SUMMARY | 2018-03-05 20:20 | XMS REPORT ---
Author Author TESSIE RALPH Organization [facility] Address [address] [place] [address] Care Team Providers Care Sole Conditioner Name Role Phone TESSIE RALPH Unavailable PROBLEMS Type Condition ICD9-CM Code WOC41-DM Code Onset Dates Condition Status SNOMED Code Problem Missed period N92.6 Active 34628335 ALLERGIES No Information ENCOUNTERS Encounter Location Date Diagnosis [facility] [address] [address] Jan, [facility] [address] [address] Dec, care, first , third trimester Z34.03 [facility] [id number] [place] [address]40- 8248 Nov, Encounter for supervision of normal first in second trimester Z34.02 [facility] [id number] [place] [address]- [address] Nov, [facility] [id number] [place] [address] 71399- 0235 Oct, Normal in multigravida Z34.80 [facility] [id number] [place] [address] 49284- 9920 Oct, [facility] [id number] [place] [address] 12167- 6474 Oct, [facility] [id number] [place] [address] 02873- 9906 Oct, [facility] [id number] [place] [address]30 -3026 Oct, Missed period N92.[address] [facility] [id number] [place] [address]83 May, Acute suppurative otitis media of left ear without spontaneous rupture of tympanic membrane, recurrence not specified H66.002 [facility] [id number] [place] [address] 17767- 0810 May, in first trimester Z33.2 [place] [address] [address]- [address] May, [facility] [id number] [place] [address] 72463- 7159 Apr, 9 weeks gestation of Z3A.09 and Normal in multigravida Z34.80 [facility] [id number] [place] [address] 17292- 9172 Apr, [address] [address] Apr, [facility] [place] [id number] [place] [address] 46752 -[address]853 Apr, Positive test Z32.01 and Otalgia of right ear H92.01 [facility] [place] [id number] [place] [address] 81586 -1916 Mar, Abrasion, foot, right, initial encounter S90.811A [facility] [facility] [id number] [place] [address] 91842- 7116 February, [facility] [id number] [place] [address] 98524- 9367 Jan, [place] [address] [address] Nov, [facility] [id number] [place] [address] 49103 -[address]61 Oct, Sore throat J02.9 and Strep throat J02.0 [place] [address] [place] [address] Sep, [facility] [address] [address] Aug, [facility] [address] [address] Aug, [facility] [address] [address] Jun, [facility] [address] [address] May, [facility] [address] [address] 9[address] May, Routine follow-up Z39.2 [facility] [id number] [address] Apr, Right acute otitis media H66.91 [facility] [address] [address] Apr, [facility] [id number] [address] 8[address] Apr, care, first , third trimester Z34.03 and 39 weeks gestation of Z3A.39 [facility] [id number] [address] 0[address] Mar, care, first , third trimester Z34.03 and 38 weeks gestation of Z3A.38 [facility] [id number] [address] 24[address] Mar, [facility] [id number] [address] 9[address] Mar, care, first , third trimester Z34.03 and 36 weeks gestation of Z3A.36 [facility] [id number] [address] 96[address] Mar, [facility] [id number] [place] [address] 65577- 5978 Mar, [facility] [id number] [place] [address] 03932- 2936 Mar, [facility] [id number] [place] [address] 37642- 4713 Mar, screening for streptococcus B Z36 ; care , first , third trimester Z34.03 ; Breech presentation, not applicable or unspecified fetus O32.1XX0 and 35 weeks gestation of Z3A.35 [facility] [id number] [place] [address] 88465- 7059 02 Mar, 2016 care, first , third trimester Z34.03 ; 34 weeks gestation of Z3A.34 and Breech presentation, not applicable or unspecified fetus O32.1XX0 [facility] [id number] [place] [address] 40382- 9537 February, care, first , third trimester Z34.03 ; 32 weeks gestation of Z3A.32 ; Syncope, unspecified syncope type R55 ; Poor appetite R63.0 ; Acute midline low back pain without sciatica M54.5 and Encounter for immunization Z23 [facility] [facility] [id number] [place] [address] 10561- 1336 February, [facility] [id number] [place] [address] 10343- 9574 February, [facility] [id number] [place] [address] 07095- 8765 February, care, first , third trimester Z34.03 and 30 weeks gestation of Z3A.30 [place] [address] 30229- 3932 08 Jan, 2016 Encounter for supervision of normal first in second trimester Z34.02 ; Diabetes mellitus screening Z13.1 ; Screening, iron deficiency anemia Z13.0 and 26 weeks gestation of Z3A.26 [facility] [id number] [place] [address] 48566- 6341 Jan, [place] [address] [address]- 12[address] Dec, [place] [address] [address]- [address] Dec, [place] [address] [address]- 6561 Dec, Encounter for supervision of normal first in second trimester Z34.02 and 22 weeks gestation of Z3A.22 [place] [address] [address]- 2669 Dec, [place] [address] [place] [address] 74589- 1274 Dec, Acute upper respiratory infection, unspecified J06.9 and Other viral agents as the cause of diseases classified elsewhere B97.89 [place] [address] [address] Nov, Encounter for supervision of normal first in second trimester Z34.02 ; Vaginal candidiasis B37.3 and 18 weeks gestation of Z3A.18 [place] [address] [address]- 6[address] Nov, [place] [address] [address]- 5968 Oct, [place] [address] [address]- 0691 Oct, [facility] [facility] [id number] [address]- 2478 Oct, Encounter for supervision of normal first in second trimester Z34.02 and 15 weeks gestation of Z3A.15 [place] [facility] [id number] [address]- [address] Sep, Encounter for supervision of normal first in first trimester Z34.01 ; Z33.1 and 11 weeks gestation of Z3A.11 [facility] [address] [address] Sep, [facility] [id number] [address] [facility] [address] [address] 08 Sep, 2015 Encounter for test, result positive Z32.01 [facility] [id number] [place] [address] 07920- 8772 17 Aug, 2015 Environmental allergies Z91.09 and Sore throat J02.9 [facility] [id number] [place] [address] 47027- 2655 Jul, Physical exam Z00.00 [facility] [address] [place] [id number] May, Dental examination V72.2 [facility] [id number] [place] [address] 22034- 7165 Jan, [facility] [address] [place] [address] 78880- 9449 Jan, [facility] [address] [place] [address] 00459- 1810 Dec, [facility] [address] [address]- 4343 Dec, [facility] [address] [place] [address] 06087- 8977 Sep, [facility] [address] [place] [address] 49043- 8322 Sep, [facility] [id number] [place] [address] 66742- 3485 Aug, [facility] [address] [place] [address] 88868- 9556 Aug, [facility] [id number] [place] [address] 62702- 1853 Jan, [facility] [address] [id number] [place] [address]- 2271 Jan, [facility] [place] [facility] [address] [facility] [id number] [place] [address]- 5550 Sep, [facility] [address] [facility] [id number] [place] [address]- 4884 Sep, [facility] [place] [facility] [address] [id number] [place] [address]- 6422 Sep, [facility] [address] [id number] [place] [address]- 3754 Sep, [facility] [place] [facility] [address] [facility] [id number] [place] [address]- 9795 Jan, [facility] [id number] [address] 1840 Nov, [facility] [place] [facility] [address] [facility] [id number] [place] [address]- 6063 Oct, [facility] [address] [facility] [id number] [place] [address]- 5249 Jul, [facility] [address] [facility] [id number] [place] [address]- 4581 Jul, [facility] [place] [facility] [address] [facility] [id number] [place] [address]- 3086 Jul, [facility] [place] [facility] [address] [facility] [id number] [address]- 1692 Jul, [facility] [place] [facility] [address] [facility] [id number] [address]- 4401 Oct, [facility] [place] [facility] [address] [facility] [id number] [place] [address]- 1391 Dec, [facility] [place] [facility] [address] [facility] [id number] [address]- 0485 Jul, [facility] [place] [facility] [address] [address]- 2546 May, [facility] [address] [address]- 2546 Mar, [facility] [address] [address]- 2546 Sep, [facility] [address] [address]- 2546 Sep, [facility] [address] [address]- 2546 Jul, [facility] [address] [place] [address] 94777- 2546 Jul, [facility] [address] [address]- 2546 February, [facility] [address] [address] 2546 Jan, IMMUNIZATIONS No Known Immunizations SOCIAL HISTORY Never Assessed REASON FOR VISIT OB triage PLAN OF CARE VITAL SIGNS MEDICATIONS Unknown [...]
--- OUTSIDE RECORDS SUMMARY | 2018-03-05 20:20 | XMS REPORT ---
Author Author NIRMAL BECKMAN [facility] Address [address] [place] [address] Care Team Providers Care Development Professional Name Role Phone NIRMAL BECKMAN Unavailable PROBLEMS Type Condition ICD9-CM Code EQS27-OQ Code Onset Dates Condition Status SNOMED Code Problem Right acute otitis media H66.91 Active 481657262 Problem Breech presentation, not applicable or unspecified fetus O32.1XX0 Active 1896298 Problem Encounter for immunization Z23 Active 317646561 Problem care, first , third trimester Z34.03 Active 763156004 ALLERGIES No Known Allergies SOCIAL HISTORY No smoking Hx information available PLAN OF CARE VITAL SIGNS MEDICATIONS No Known Medications RESULTS No Results PROCEDURES No Known procedures IMMUNIZATIONS No Known Immunizations
--- OUTSIDE RECORDS SUMMARY | 2018-03-05 20:21 | XMS REPORT ---
Author Author VERONA HUI [facility] e[employer] Address Unknown Phone Unavailable Care Team Providers Care Nutrition Educator Name Role Phone VERONA HUI CP Unavailable Allergies No Known Allergies Problems No Known Problems Medications No Known Medications Results No Known Results Summary Purpose eClinicalWorks Submission
--- OUTSIDE RECORDS SUMMARY | 2018-03-05 20:21 | XMS REPORT ---
Author Author NIRMAL BECKMAN [employer] Address Unknown Phone Unavailable Care Team Providers Care Jumpbasting Facing Baster Name Role Phone NIRMAL BECKMAN CP Unavailable Allergies, Adverse Reactions, Alerts Substance Reaction Event Type peaches Info Not Available Non Drug Allergy Problems Problem Type Condition Code Onset Dates Condition Status Assessment Encounter for supervision of normal first in first trimester Z34.01 Active Assessment Z33.1 Active Problem Encounter for supervision of normal first in first trimester Z34.01 Active Assessment 11 weeks gestation of Z3A.11 Active Medications Medication Code System Code Instructions Start Date End Date Status Dosage Vitamins NDC 0 (Dis) Orally not defined Procedures Procedure Coding System Code Date Office Visit, Est Pt., Level 3 CPT-4 99958 Oct 03, 2015 VENIPUNCT, ROUTINE* CPT-4 49407 Oct 03, 2015 URINE CULTURE/COLONY COUNT CPT-4 18143 Oct 03, 2015 RBC ANTIBODY SCREEN CPT-4 45492 Oct 03, 2015 URINALYSIS, AUTO, W/O SCOPE CPT-4 71045 Oct 03, 2015 BLOOD TYPING, RH (D) CPT-4 40056 Oct 03, 2015 RUBELLA ANTIBODY CPT-4 01261 Oct 03, 2015 BLOOD TYPING, ABO CPT-4 03685 Oct 03, 2015 DRUG SCREEN NON TLC DEVICES CPT-4 31058 Oct 03, 2015 ASSAY THYROID STIM HORMONE CPT-4 06908 Oct 03, 2015 COMPLETE CBC W/AUTO DIFF WBC CPT-4 34797 Oct 03, 2015 No Charge CPT-4 63862 Oct 03, 2015 Vital Signs Date/Time: Oct 03, 2015 Temperature 97.0 F Weight 112.7 lbs Height 62.5 in BMI 20.285 Index Blood Pressure Diastolic 68 mmHg Blood Pressure Systolic 98 mmHg Cardiac Monitoring Heart Rate 72 bpm BMIPercentile 35.67 % Wt Percentile 24.91 % Results Name Result Date Reference Range Unit Abnormality Flag CBC ----Lymphs 16 37604171 % ----Neutrophils 76 85876583 % ----Baso (Absolute) 0.0 20151003 0.0-0.2 x10E3/uL ----Hemoglobin 13.0 66807305 11.1-15.9 g/dL ----Eos (Absolute) 0.0 84647483 0.0-0.4 x10E3/uL ----Hematocrit 38.5 30287987 34.0-46.6 % ----Monocytes(Absolute) 0.8 20151003 0.1-0.9 x10E3/uL ----MCV 92 47040266 79-97 fL ----Lymphs (Absolute) 1.6 48121823 0.7-3.1 x10E3/uL ----MCH 31.0 53458512 26.6-33.0 pg ----Neutrophils (Absolute) 7.2 46579708 1.4-7.0 x10E3/uL H ----MCHC 33.8 78583683 31.5-35.7 g/dL ----Immature Granulocytes 0 13182409 % ----Basos 0 20151003 % ----RDW 12.9 00343811 12.3-15.4 % ----Immature Grans (Abs) 0.0 62009039 0.0-0.1 x10E3/uL ----WBC 9.6 01363826 3.4-10.8 x10E3/uL ----Platelets 269 73690253 150-379 x10E3/uL ----Eos 0 20151003 % ----RBC 4.20 85214900 3.77-5.28 x10E6/uL ----Monocytes 8 67639388 % ANTIBODY SCREEN ----Antibody Screen Negative 20151003 Negative ROUTINE VENIPUNCTURE TSH () ----TSH 0.410 20151003 0.450-4.500 uIU/mL L UA LONG DIP (IN HOUSE) ----GLU neg 20151004 ----Odor no 20151004 ----Color yellow 20151004 ----Clarity clear 20151004 ----SG 1.020 20151004 ----KET neg 20151004 ----NINA neg 20151004 ----Protein negative 20151004 ----URO 1.0 20151004 ----NIT negative 20151004 ----ANUPAM 1+ 20151004 ----Exp date 20151004 ----Lot # [id number] 20151004 ----BLO negative 20151004 ----pH 7.0 20151004 BLOOD TYPE/RH FACTOR ----Rh Factor Positive 20151003 ----ABO Grouping B 20151003 RUBELLA ANTIBODIES, IgG ----Rubella Antibodies, IgG 1.78 20151003 Immune >0.99 index Summary Purpose eClinicalWorks Submission
--- OUTSIDE RECORDS SUMMARY | 2018-03-05 20:21 | XMS REPORT ---
Author Author NIRMAL BECKMAN [facility] Address [address] [place] [address] Care Team Providers Care Solution Developer Name Role Phone NIRMAL BECKMAN Unavailable PROBLEMS Type Condition ICD9-CM Code EPZ34-GO Code Onset Dates Condition Status SNOMED Code Problem Right acute otitis media H66.91 Active 630478852 Problem Breech presentation, not applicable or unspecified fetus O32.1XX0 Active 7128423 Problem Encounter for immunization Z23 Active 757579612 Problem care, first , third trimester Z34.03 Active 922853790 ALLERGIES Unknown Allergies SOCIAL HISTORY No smoking Hx information available PLAN OF CARE VITAL SIGNS MEDICATIONS Unknown Medications RESULTS No Results PROCEDURES No Known procedures IMMUNIZATIONS No Known Immunizations
--- OUTSIDE RECORDS SUMMARY | 2018-03-05 20:21 | XMS REPORT ---
Author Author FINN CAPUTO Organization [facility] Address [address] [place] [address] Care Team Providers Care Ornamental Metal Worker Apprentice Name Role Phone FINN CAPUTO Unavailable PROBLEMS Type Condition ICD9-CM Code BUI03-AT Code Onset Dates Condition Status SNOMED Code Problem Missed period N92.6 Active 76551593 ALLERGIES Substance Reaction Event Type Date Status peaches Unknown Non Drug Allergy Mar, Active ENCOUNTERS Encounter Location Date Diagnosis [facility] [id number] [place] [address] 16595- 8947 Dec, [facility] [id number] [place] [address] 01711- 9364 Nov, Encounter for supervision of normal first in second trimester Z34.02 [facility] [id number] [place] [address] 00362- 6450 Nov, [facility] [id number] [place] [address] 81848- 2815 Oct, Normal in multigravida Z34.80 [facility] [id number] [place] [address] 39593- 2022 Oct, [facility] [id number] [place] [address] 97891- 0233 Oct, [facility] [id number] [place] [address] 27322- 1923 Oct, [facility] [id number] [place] [address] 36064 -4815 Oct, Missed period N92.6 [facility] [id number] [place] [address] 47764 -0829 May, Acute suppurative otitis media of left ear without spontaneous rupture of tympanic membrane, recurrence not specified H66.002 [place] [id number] [place] [address] 20933- 7612 May, in first trimester Z33.2 [place] [id number] [place] [address] 47110- 2750 May, [place] [address] 64545- 1070 Apr, 9 weeks gestation of Z3A.09 and Normal in multigravida Z34.80 [place] [address] 22211- 8110 Apr, [place] [id number] [place] [address] 52464- 3817 Apr, [facility] [address] 95[address] -3422 Apr, Positive test Z32.01 and Otalgia of right ear H92.01 [facility] [place] [id number] [place] [address] 41410 -4557 Mar, Abrasion, foot, right, initial encounter S90.811A [place] [id number] [place] [address] 42242- 7437 February, [place] [id number] [place] [address] 93625- 3740 Jan, [place] [id number] [place] [address] 74211- 3927 Nov, [facility] [address] [address]2992 Oct, Sore throat J02.9 and Strep throat J02.0 [place] [id number] [place] [address] 51534- 0258 Sep, [place] [address] 43018- 5248 Aug, [facility] [address] [address] 2458 Aug, [facility] [address] [address] 4830 Jun, [facility] [address] [address] 9067 May, [facility] [id number] [place] [address] 45233- 1075 May, Routine follow-up Z39.2 [facility] [id number] [place] [address] 57316 -6352 Apr, Right acute otitis media H66.91 [facility] [address] [address] 1261 Apr, [facility] [id number] [place] [address] 57770- 2509 Apr, care, first , third trimester Z34.03 and 39 weeks gestation of Z3A.39 [facility] [id number] [place] [address] 41992- 3533 Mar, care, first , third trimester Z34.03 and 38 weeks gestation of Z3A.38 [facility] [address] [address] 6181 Mar, [facility] [address] [address]- 1216 Mar, care, first , third trimester Z34.03 and 36 weeks gestation of Z3A.36 [facility] [address] [address]- 6187 Mar, [facility] [address] [address]- 3978 Mar, [facility] [id number] [place] [address] 16479- 3017 Mar, [place] [id number] [place] [address] 89295- 7222 09 Mar, 2016 screening for streptococcus B Z36 ; care , first , third trimester Z34.03 ; Breech presentation, not applicable or unspecified fetus O32.1XX0 and 35 weeks gestation of Z3A.[address] 40253- 2296 Mar, care, first , third trimester Z34.03 ; 34 weeks gestation of Z3A.34 and Breech presentation, not applicable or unspecified fetus O32.1XX0 [address] 54086- 2415 February, care, first , third trimester Z34.03 ; 32 weeks gestation of Z3A.32 ; Syncope, unspecified syncope type R55 ; Poor appetite R63.0 ; Acute midline low back pain without sciatica M54.5 and Encounter for immunization Z23 [address] [id number] [place] [address] 24688- 8454 February, [address] 04222- 5964 February, [place] [id number] [place] [address] 99868- 5502 February, care, first , third trimester Z34.03 and 30 weeks gestation of Z3A.30 [place] [id number] [place] [address] 90575- 9292 Jan, Encounter for supervision of normal first in second trimester Z34.02 ; Diabetes mellitus screening Z13.1 ; Screening, iron deficiency anemia Z13.0 and 26 weeks gestation of Z3A.26 [place] [id number] [place] [address] 82595- 7387 Jan, [place] [address] 63036- 7531 Dec, [place] [address] [address]- 4996 Dec, [place] [id number] [place] [address] 881272- 4722 Dec, Encounter for supervision of normal first in second trimester Z34.02 and 22 weeks gestation of Z3A.22 [place] [id number] [place] [address] 61510- 2897 Dec, [place] [id number] [place] [address] 97967- 0173 Dec, Acute upper respiratory infection, unspecified J06.9 and Other viral agents as the cause of diseases classified elsewhere B97.89 [address] [place] [address] 29449- 9804 Nov, Encounter for supervision of normal first in second trimester Z34.02 ; Vaginal candidiasis B37.3 and 18 weeks gestation of Z3A.18 [place] [address] [place] [address] 69978- 6532 Nov, [place] [id number] [place] [address] 99405- 5622 Oct, [place] [id number] [place] [address] 89498- 1018 Oct, [place] [id number] [place] [address] 10366- 9052 Oct, Encounter for supervision of normal first in second trimester Z34.02 and 15 weeks gestation of Z3A.15 [address] [place] [address] 93902- 1679 Sep, Encounter for supervision of normal first in first trimester Z34.01 ; Z33.1 and 11 weeks gestation of Z3A.11 [place] [id number] [place] [address] 26765- 8170 Sep, [place] [id number] [address] Sep [facility] [id number] [place] [address] 74353 -4192 Sep, Encounter for test, result positive Z32.01 [facility] [id number] [place] [address] 49290- 5995 Aug, Environmental allergies Z91.09 and Sore throat J02.9 [facility] [id number] [place] [address] 68264- 6497 Jul, Physical exam Z00.00 [facility] [id number] [place] [address] [id number] May, Dental examination V72.2 [facility] [id number] [place] [address] 95776- 4802 Jan, [facility] [id number] [place] [address] 24677- 9077 Jan, [facility] [id number] [place] [address] 59918- 8425 Dec, [facility] [id number] [place] [address] 50957- 2155 Dec, [facility] [id number] [place] [address] 62939- 7974 Sep, [facility] [id number] [place] [address] 40826- 3644 Sep, [facility] [id number] [place] [address] 92794- 9823 Aug, [facility] [id number] [place] [address] 89132- 3689 Aug, [facility] [id number] [place] [address] 63500- 1768 Jan, [facility] [id number] [place] [address] 82495- 8036 Jan, [facility] [address] [id number] [place] [address]- 0999 Sep, [facility] [place] [facility] [address] [id number] [place] [address]- 4316 Sep, [facility] [place] [facility] [address] [id number] [place] [address]- 8776 Sep, [facility] [place] [facility] [address] [id number] [place] [address]- 4339 Sep, [facility] [place] [facility] [address] [id number] [place] [address]- 4222 Jan, [facility] [place] [facility] [address] [id number] [place] [address]- 4651 Nov, [facility] [place] [facility] [address] [id number] [place] [address]- 8708 Oct, [facility] [place] [facility] [address] [id number] [place] [address]- 0404 Jul, [facility] [place] [facility] [address] [id number] [place] [address]- 0030 Jul, [facility] [place] [facility] [address] [id number] [place] [address]- 7086 Jul, [facility] [place] [facility] [address] [id number] [address]- 4882 Jul, [facility] [place] [facility] [address] [id number] [address]- 9983 Oct, [facility] [place] [facility] [address] [id number] [place] [address]- 5244 Dec, [facility] [place] [facility] [address] [id number] [place] [address]- 5173 Jul, [facility] [place] [facility] [address] [id number] [place] [address]- 9294 May, [facility] [place] [facility] [id number] [address]- 2546 Mar, [facility] [id number] [address]- 2546 Sep, [facility] [address], [place] [address]- 2546 Sep, [facility] [id number] [address]- 2546 Jul, [facility] [id number] [address]- 2546 Jul, [facility] [id number] [address]- 2546 February, [facility] [id number] [address]- 2546 Jan, IMMUNIZATIONS No Known Immunizations SOCIAL HISTORY Never Assessed REASON FOR VISIT foot pain- stepped on a nail Friday night- [facility] VITAL SIGNS Height 62.5 in 2017-04-09 Weight 108.8 lbs 2017-04-09 Temperature 97.8 degrees Fahrenheit 2017-04-09 Heart Rate 66 bpm 2017-04-09 Respiratory Rate 20 2017-04-09 BMI 19.58 kg/m2 2017-04-09 Blood pressure systolic 118 mmHg 2017-04-09 Blood pressure diastolic 66 mmHg 2017-04-09 MEDICATIONS Unknown Medications RESULTS No Results PROCEDURES [...]
--- OUTSIDE RECORDS SUMMARY | 2018-03-05 20:21 | XMS REPORT ---
Author Author IAN SQUIRES Organization [employer] Address Unknown Phone Unavailable Care Team Providers Care Mine Wedge Sawyer Name Role Phone IAN SQUIRES CP Unavailable Allergies, Adverse Reactions, Alerts Substance Reaction Event Type peaches Info Not Available Non Drug Allergy Problems Problem Type Condition Code Onset Dates Condition Status Assessment Physical exam Z00.00 Active Problem Physical exam Z00.00 Active Medications No Known Medications Procedures Procedure Coding System Code Date COMPREHEN METABOLIC PANEL CPT-4 07929 Jul 25, 2015 ASSAY THYROID STIM HORMONE CPT-4 55325 Jul 25, 2015 COMPLETE CBC W/AUTO DIFF WBC CPT-4 38874 Jul 25, 2015 ELECTROCARDIOGRAM, TRACING CPT-4 89284 Jul 25, 2015 Office Visit, Est Pt., Level 4 CPT-4 86076 Jul 25, 2015 VENIPUNCT, ROUTINE* CPT-4 34818 Jul 25, 2015 Vital Signs Date/Time: Jul 25, 2015 Temperature 98.3 F BMIPercentile 22.54 % Weight 107.0 lbs Height 62.5 in BMI 19.26 Index Blood Pressure Diastolic 60 mmHg Blood Pressure Systolic 90 mmHg Cardiac Monitoring Heart Rate 60 bpm Wt Percentile 14.69 % Ht Percentile 24.98 % Results Name Result Date Reference Range Unit Abnormality Flag ROUTINE VENIPUNCTURE Summary Purpose [employer] Submission
--- OUTSIDE RECORDS SUMMARY | 2018-03-05 20:21 | XMS REPORT ---
Author Author NIRMAL BECKMAN [facility] Address [address] [place] [address] Care Team Providers Care Artist Manager Name Role Phone NIRMAL BECKMAN Unavailable PROBLEMS Type Condition ICD9-CM Code LPH31-AK Code Onset Dates Condition Status SNOMED Code Problem Right acute otitis media H66.91 Active 447978056 Problem Breech presentation, not applicable or unspecified fetus O32.1XX0 Active 5798013 Problem Encounter for immunization Z23 Active 733714622 Problem care, first , third trimester Z34.03 Active 248110600 ALLERGIES Unknown Allergies SOCIAL HISTORY No smoking Hx information available PLAN OF CARE VITAL SIGNS MEDICATIONS Unknown Medications RESULTS No Results PROCEDURES No Known procedures IMMUNIZATIONS No Known Immunizations
--- OUTSIDE RECORDS SUMMARY | 2018-03-05 20:21 | XMS REPORT ---
Author Author TESSIE RALPH [facility] Address [address] [place] [address] Care Team Providers Care Hepatology Physician Name Role Phone TESSIE RALPH Unavailable PROBLEMS Type Condition ICD9-CM Code OML43-AU Code Onset Dates Condition Status SNOMED Code Problem Right acute otitis media H66.91 Active 209236265 Problem Breech presentation, not applicable or unspecified fetus O32.1XX0 Active 7140032 Problem Encounter for immunization Z23 Active 347508330 Problem care, first , third trimester Z34.03 Active 104370286 ALLERGIES Unknown Allergies SOCIAL HISTORY No smoking Hx information available PLAN OF CARE VITAL SIGNS MEDICATIONS Unknown Medications RESULTS No Results PROCEDURES No Known procedures IMMUNIZATIONS No Known Immunizations
--- OUTSIDE RECORDS SUMMARY | 2018-03-05 20:21 | XMS REPORT ---
Author Author IAN SQUIRES Organization [employer] Address Unknown Phone Unavailable Care Team Providers Care Carpentry Specialist Name Role Phone IAN SQUIRES CP Unavailable Allergies, Adverse Reactions, Alerts Substance Reaction Event Type peaches Info Not Available Non Drug Allergy Problems Problem Type Condition Code Onset Dates Condition Status Assessment Environmental allergies Z91.09 Active Assessment Sore throat J02.9 Active Problem Physical exam Z00.00 Active Medications Medication Code System Code Instructions Start Date End Date Status Dosage Zyrtec Allergy [facility] [address]-98 10 MG Orally Once a day Aug 29, 2015 Sep 28, 2015 1 tablet as needed Procedures Procedure Coding System Code Date Office Visit, Est Pt., Level 3 CPT-4 80995 Aug 29, 2015 Vital Signs Date/Time: Aug 29, 2015 Temperature 98.5 F Weight 111.6 lbs Height 62.5 in BMI 20.08 Index Blood Pressure Diastolic 80 mmHg Blood Pressure Systolic 100 mmHg Cardiac Monitoring Heart Rate 62 bpm BMIPercentile 33.2 % Wt Percentile 22.96 % Results No Known Results Summary Purpose [employer] Submission
--- NOTE | 2018-03-05 20:34 | ED Chest Pain ---
General Chief Complaint: Chest Pain Stated Complaint: CHEST PAIN Source: patient Exam Limitations: no limitations History of Present Illness Date Seen by Provider: March 05, 2018 Time Seen by Provider: 20:31 Initial Comments to ER coming by her mother with reports of upper or central chest pain non- radiating worse with movement for the past 2 days since 03/03/18. She is 31 weeks Ab1. no history of cardiac troubles with prior pregnancies. Pain improves with rest. She does have dyspnea with exertion. Bilateral lower extremity intermittent swelling and none currently. She is a nonsmoker. She does have mild cerebral palsy.She has a history of ASD and VSD repair according to mother. No cough no fevers no chills Severity/Quality: moderate Location: central Radiation: no radiation ASA po BORING INSPECTOR: No NTG SL BORING INSPECTOR: No Associated Symptoms: shortness of breath Allergies and Home Medications Allergies Coded Allergies: NKANo Known Allergies (Unverified Allergy, Mild, 01/16/10) peach (Unverified Allergy, Unknown, 04/22/16) FROM UNCODED ALLERGIES Home Medications Acetaminophen 500 Mg Tablet, 1,000 MG PO Q4H PRN for TEMPERATURE, (Reported) Ibuprofen 600 Mg Tablet, 600 MG PO Q6H Prescribed by: VERONA HUI on 04/22/16 1250 Levofloxacin 500 Mg Tablet, 500 MG PO DAILY Prescribed by: ALCON SANDHU on 09/12/16 1511 Norgestimate-Ethinyl Estradiol 1 Each Tablet, 1 TAB PO DAILY, (Reported) Patient Home Medication List Home Medication List Reviewed: Yes Review of Systems Constitutional: see HPI EENTM: No Symptoms Reported Respiratory: See HPI; Denies Cough; SOA With Exertion Cardiovascular: See HPI, Chest Pain Gastrointestinal: No Symptoms Reported Genitourinary: No Symptoms Reported Musculoskeletal: no symptoms reported Skin: no symptoms reported Psychiatric/Neurological: No Symptoms Reported Past Engitho-Biiftx-Vepcus Hx Patient Social History Recent Foreign Travel: No Contact w/Someone Who Travel: No Recent Hopitalizations: No Immunizations Up To Date Tetanus Booster (TDap): Less than 5yrs PED Vaccines UTD: Yes Seasonal Allergies Seasonal Allergies: No Past Medical History Surgeries: Yes (REPAIR OF ASD/VSD, MUSCULOSKELETAL SURGERY TO STRAIGHTEN LEFT ARM) Adenoidectomy, Cardiac, Tonsillectomy Respiratory: No Cardiac: Yes (ASD and VSD REPAIRED) Congenital Heart Disease 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) Cerebral Palsy, Stroke Reproductive Disorders: No Female Reproductive Disorders: Denies Sexually Transmitted Disease: No HIV/AIDS: No Gastrointestinal: No Musculoskeletal: No Endocrine: No Cancer: No Psychosocial: No Integumentary: No Blood Disorders: No Adverse Reaction/Blood Tranf: No Family Medical History Asthma (FATHER) Cervical cancer 19 MOTHER Diabetes mellitus (PGM MGF) FH: cancer (FATHER MGF) FH: heart disease (MGM PGM MGF PGF BROTHER) FH: stroke (MGM) Hypertension (FATHER PGM MGF PGF) Osteoporosis (FATHER) Tetralogy of Fallot (BROTHER) Physical Exam Vital Signs Vital Signs - First Documented 03/05/18 21:44 Pulse Ox 98 Capillary Refill : General Appearance: No Apparent Distress, WD/WN, Other (alert, talkative, pleasant. No distress. Heart rate 100 to 115 sinus. Oxygen saturation 98-100% on room air.blood pressure 137/80) HEENT: PERRL/EOMI, TMs Normal Neck: Full Range of Motion, Normal Inspection Respiratory: Normal Breath Sounds, No Accessory Muscle Use, No Respiratory Distress Cardiovascular: Normal Peripheral Pulses, Tachycardia Gastrointestinal: Normal Bowel Sounds, Non Tender, Soft Extremity: Normal Capillary Refill, Normal Inspection Neurologic/Psychiatric: Alert, Oriented x3 Skin: Normal Color, Warm/Dry Progress/Results/Core Measures Results/Orders Lab Results Laboratory Tests Test 03/05/18 20:38 03/05/18 20:50 Range/Units White Blood Count 10.8 4.3-11.0 10^3/uL Red Blood Count 3.72 L 4.35-5.85 10^6/uL Hemoglobin 12.3 11.5-16.0 G/DL Hematocrit 34 L 35-52 % Mean Corpuscular Volume 92 80-99 FL Mean Corpuscular Hemoglobin 33 25-34 PG Mean Corpuscular Hemoglobin Concent 36 32-36 G/DL Red Cell Distribution Width 13.2 10.0-14.5 % Platelet Count 198 130-400 10^3/uL Mean Platelet Volume 9.8 7.4-10.4 FL Neutrophils (%) (Auto) 79 H 42-75 % Lymphocytes (%) (Auto) 14 12-44 % Monocytes (%) (Auto) 8 0-12 % Eosinophils (%) (Auto) 0 0-10 % Basophils (%) (Auto) 0 0-10 % Neutrophils # (Auto) 8.5 H 1.8-7.8 X 10^3 Lymphocytes # (Auto) 1.5 1.0-4.0 X 10^3 Monocytes # (Auto) 0.8 0.0-1.0 X 10^3 Eosinophils # (Auto) 0.0 0.0-0.3 10^3/uL Basophils # (Auto) 0.0 0.0-0.1 10^3/uL Sodium Level 136 135-145 MMOL/L Potassium Level 3.4 L 3.6-5.0 MMOL/L Chloride Level 107 98-107 MMOL/L Carbon Dioxide Level 18 L 21-32 MMOL/L Anion Gap 11 5-14 MMOL/L Blood Urea Nitrogen 6 L 7-18 MG/DL Creatinine 0.55 L 0.60-1.30 MG/DL Estimat Glomerular Filtration Rate > 60 BUN/Creatinine Ratio 11 Glucose Level 134 H 70-105 MG/DL Calcium Level 8.8 8.5-10.1 MG/DL Total Bilirubin 0.5 0.1-1.0 MG/DL Aspartate Amino Transf (AST/SGOT) 13 5-34 U/L Alanine Aminotransferase (ALT/SGPT) 13 0-55 U/L Alkaline Phosphatase 65 40-136 U/L B-Type Natriuretic Peptide 45.4 <100.0 PG/ML Total Protein 7.0 6.4-8.2 GM/DL Albumin 3.7 3.2-4.5 GM/DL Urine Color YELLOW Urine Clarity SLIGHTLY CLOUDY Urine pH 7 5-9 Urine Specific [place] 1.010 L 1.016-1.022 Urine Protein NEGATIVE NEGATIVE Urine Glucose (UA) 3+ H NEGATIVE Urine Ketones NEGATIVE NEGATIVE Urine Nitrite NEGATIVE NEGATIVE Urine Bilirubin NEGATIVE NEGATIVE Urine Urobilinogen NORMAL NORMAL MG/DL Urine Leukocyte Esterase 1+ H NEGATIVE Urine RBC (Auto) NEGATIVE NEGATIVE Urine RBC NONE /HPF Urine WBC 2-5 /HPF Urine Squamous Epithelial Cells 2-5 /HPF Urine Crystals NONE /LPF Urine Bacteria TRACE /HPF Urine Casts NONE /LPF Urine Mucus NEGATIVE /LPF Urine Culture Indicated NO My Orders Orders - [employer] Cbc With Automated Diff (03/05/18 20:30) Comprehensive Metabolic Panel (03/05/18 20:30) BNP (03/05/18 20:30) Ekg Tracing (03/05/18 20:30) Continuous Ekg Monitoring (03/05/18 20:30) Ua Culture If Indicated (03/05/18 20:36) Vital Signs/I&O 03/05/18 03/05/18 03/05/18 20:16 20:16 21:44 Temp 98.4 98.4 Pulse 109 107 Resp 22 25 B/P (MAP) 137/80 (99) 113/74 Pulse Ox 98 O2 Delivery Room Air Room Air Room Air Departure Impression Primary Impression: Chest pain Additional Impression: Dyspnea on exertion Disposition: HOME, SELF-CARE Condition: Stable Departure-Patient Inst. Decision time for Depature: 21:30 Referrals: TESSIE RALPH MD (PCP/Family) Primary Care Physician Patient Instructions: Chest Pain (DC) Add. Discharge Instructions: 1. Return to ER for any worsening symptoms. Call Dr Ralph tomorrow for follow up. All discharge instructions reviewed with patient and/or family. Voiced understanding. Work/School Note: Work Release Form Date Seen in the Emergency Department: March 05, 2018 Return to Work: March 07, 2018 Copy Copies To 1: TESSIE RALPH MD, PETER J APRN March 05, 2018 20:34
[2018-03-05 20:51] LABS: BASOPHILS % (AUTO) 0 % (0-10); EOSINOPHILS % (AUTO) 0 % (0-10); HEMATOCRIT 34 % (35-52); HEMOGLOBIN 12.3 G/DL (11.5-16.0); LYMPHOCYTES # (AUTO) 1.5 X 10^3 (1.0-4.0); LYMPHOCYTES % (AUTO) 14 % (12-44); MEAN CORPUSCULAR HEMOGLOBIN 33 PG (25-34); MEAN CORPUSCULAR HGB CONC 36 G/DL (32-36); MEAN CORPUSCULAR VOLUME 92 FL (80-99); MEAN PLATELET VOLUME 9.8 FL (7.4-10.4); MONOCYTES # (AUTO) 0.8 X 10^3 (0.0-1.0); MONOCYTES % (AUTO) 8 % (0-12); NEUTROPHILS # (AUTO) 8.5 X 10^3 (1.8-7.8); NEUTROPHILS % (AUTO) 79 % (42-75); PLATELET COUNT 198 10^3/uL (130-400); RED BLOOD COUNT 3.72 10^6/uL (4.35-5.85); RED CELL DISTRIBUTION WIDTH 13.2 % (10.0-14.5); WHITE BLOOD COUNT 10.8 10^3/uL (4.3-11.0)
[2018-03-05 21:02] LABS: BILIRUBIN,URINE NEGATIVE (NEGATIVE); GLUCOSE, URINE (UA) 3+ (NEGATIVE); KETONES,URINE NEGATIVE (NEGATIVE); LEUKOCYTE ESTERASE ,URINE 1+ (NEGATIVE); NITRITE,URINE NEGATIVE (NEGATIVE); PH,URINE 7 (5-9); PROTEIN,URINE NEGATIVE (NEGATIVE); UROBILINOGEN,URINE NORMAL (NORMAL)
[2018-03-05 21:03] LABS: CLARITY,URINE SLIGHTLY CLOUDY; COLOR,URINE YELLOW
[2018-03-05 21:07] LABS: BACTERIA,URINE TRACE /HPF
[2018-03-05 21:11] LABS: BUN/CREATININE RATIO 11; CARBON DIOXIDE 18 MMOL/L (21-32); CHLORIDE 107 MMOL/L (98-107); CREATININE SERUM 0.55 MG/DL (0.60-1.30); POTASSIUM 3.4 MMOL/L (3.6-5.0); SODIUM 136 MMOL/L (135-145)
[2018-03-05 21:12] LABS: ALANINE AMINOTRANSFERASE 13 U/L (0-55); ALBUMIN 3.7 GM/DL (3.2-4.5); ALKALINE PHOSPHATASE 65 U/L (40-136); BILIRUBIN,TOTAL 0.5 MG/DL (0.1-1.0); CALCIUM 8.8 MG/DL (8.5-10.1); GFR ESTIMATED > 60; GLUCOSE 134 MG/DL (70-105)
[2018-03-05 21:44] VITALS: BP 113/74
== END 2018-03-05 21:44 | disposition home or self-care (01) ==
LOC: EDUNIT# 20:13 → ER 20:14
DX: O99.89 Other specified diseases and conditions complicating pregnancy, childbirth and the puerperium (principal); R07.9 Chest pain, unspecified; O99.513 Diseases of the respiratory system complicating pregnancy, third trimester; R06.09 Other forms of dyspnea; O99.353 Diseases of the nervous system complicating pregnancy, third trimester; G80.9 Cerebral palsy, unspecified; Z3A.31 31 weeks gestation of pregnancy; Z90.89 Acquired absence of other organs; Z86.73 Personal history of transient ischemic attack (TIA), and cerebral infarction without residual deficits; Z80.49 Family history of malignant neoplasm of other genital organs
CPT/HCPCS: 36415; 80053; 81000; 83880; 85025; 93005

== ENCOUNTER 2018-04-20 21:43 | Outpatient (CLI) | payer OTHER, MEDICAID ==
[~2018-04-20] VITALS: Ht 157.5 cm; Wt 63.2 kg
[2018-04-20 22:00] VITALS: BP 129/68
[2018-04-20 22:05] LABS: BILIRUBIN,URINE NEGATIVE (NEGATIVE); CLARITY,URINE CLEAR; COLOR,URINE YELLOW; GLUCOSE, URINE (UA) NEGATIVE (NEGATIVE); KETONES,URINE 3+ (NEGATIVE); LEUKOCYTE ESTERASE ,URINE 3+ (NEGATIVE); NITRITE,URINE NEGATIVE (NEGATIVE); PH,URINE 7 (5-9); PROTEIN,URINE NEGATIVE (NEGATIVE); UROBILINOGEN,URINE NORMAL (NORMAL)
[2018-04-20] MEDS ORDERED: PREN1TAB86 PO (22:11)
[2018-04-20 22:24] LABS: BACTERIA,URINE FEW /HPF
[2018-04-20 22:55] VITALS: BP 133/74
--- NOTE | 2018-04-22 14:46 | Physician Query-Final Dx ---
LORENZO WALLACE 04/22/18 1446: Clinic Account Progress/Dx Physician Query: Please give diagnosis Date of Service Apr 20, 2018 at 21:43 TESSIE RALPH MD 04/23/18 0757: Clinic Account Progress/Dx DIAGNOSIS: Diagnosis 1. IUP at 38 weeks, non labor LORENZO WALLACE Apr 22, 2018 14:46 TESSIE RALPH MD Apr 23, 2018 07:57
== END 2018-04-20 23:15 | disposition home or self-care (01) ==
LOC: LDRP 21:43 → WSo 21:43
PROVIDERS: ATTEND Family Medicine
DX: O47.1 False labor at or after 37 completed weeks of gestation (principal); Z3A.38 38 weeks gestation of pregnancy
CPT/HCPCS: 81000; 87088; 99213

== ENCOUNTER 2018-04-21 22:16 | Inpatient (IN) | payer OTHER, MEDICAID ==
[~2018-04-21] VITALS: Ht 157.5 cm; Wt 63.2 kg
[2018-04-21] VITALS (7 sets, daily range): BP systolic 110–132; BP diastolic 58–87
[~2018-04-21 22:16] MED LIST changes: +PREN1TAB86 PO
[2018-04-21] MEDS ORDERED: OXYTOCIN/NORMAL SALINE 500 ML IV ONE (22:19)
[2018-04-21] MEDS ORDERED: D5 LR IV SOLUTION 1,000 ML IV ONE (22:19)
[2018-04-21] MEDS: D5 LR IV SOLUTION 1,000 ML IV SCH (22:20)
[2018-04-21] MEDS ORDERED: LIDOCAINE 1% INJ 20 ML 20 ML VIAL ONE (22:34)
--- NOTE | 2018-04-21 22:58 | History & Physical-OB ---
OB - Chief Complaint & HPI Date/Time Date of Admission: Date of Admission: Apr 21, 2018 at 22:38 Time Seen by Provider: 22:15 Chief Complaint/History OB-Reason for Admission/Chief: Onset of Labor Hx : 2 Hx Para: 1 Expected Date of Delivery: May 01, 2018 Gestational Age in Weeks: 38 Gestational Age in Days: 4 Admission Nurse Assessment Rev: Yes History of Labs GBS negative Allergies and Home Medications Allergies Coded Allergies: NKANo Known Allergies (Verified Allergy, Mild, 04/20/18) peach (Unverified Allergy, Unknown, 04/22/16) FROM UNCODED ALLERGIES Home Medications Vit W-Ca,Fe,FA(<1 mg) 1 Each Tablet, 1 EACH PO DAILY, (Reported) Patient Home Medication List Home Medication List Reviewed: Yes OB - History Hx of Present Care: Yes Ultrasounds: Normal mid trimester US Obstetrical Complications: None Medical Complications: None Delivery History Hx Blood Disorders: No Adverse Rxn to Tranfusion: No 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 Social History/Family History HIV/AIDS: No Sexually Transmitted Disease: No Immunizations Hepatitis A: No Hepatitis B: No Tetanus Booster (TDap): Less than 5yrs OB - Admission Exam Physical Exam HEENT: Moist Membranes Heart: Rhythm Normal Lungs: Clear, Wheezes Cervical Dilatation: 8cm Effacement: 100% Station: 0 Membranes: Intact Heart Rate: 130's Accelerations: Accelerations Present Short Term Variability: Present New Business Clerk Variability: Average (6-25) Contractions on Admission: < 5 Minutes Apart Intensity: Moderate OB - Assessment/Plan/Diagnosis Assessment Assessment: active labor Admission Dx IUP at 38w4d term in active labor Admission Status: Inpatient Order (span 2 midnights) Reason for Inpatient Admission: delivery Plan Other Plan Eminent delivery TESSIE RALPH MD Apr 21, 2018 22:58
[2018-04-21] MEDS ORDERED: OXYTOCIN/NORMAL SALINE 500 ML IV SCH (23:01)
--- NOTE | 2018-04-21 23:01 | OB Labor & Delivery Record ---
L&D History Date of Service Date of Service: Apr 21, 2018 History Expected Date of Delivery: May 01, 2018 Gestational Age in Weeks: 38 Hx : 2 Hx Para: 1 Complications Events: Routine care Operative Indications (Cesarea: N/A-Vaginal Delivery Intrapartal Events: Precipitous Labor < 3 hrs L&D Stage1 Stage One Onset of Labor - Date: Apr 21, 2018 Onset of Labor - Time: 12:00 Monitors and Tracing Monitor Mode: External Monitor Accelerations: Uniform Monitor Decelerations: Variable Station: 0 Short Term Variability: Present Presentation: Vertex Signs of Distress by FHT Signs of Distress no Rupture of Membranes Spontaneous Ruture of Membrane: Yes Amniotic Membrane Rupture Time: 22:25 Amniotic Membrane Fluid Desc.: Clear L&D Stage2 Stage Two Stage II Date: Apr 21, 2018 Stage II Time: 22:29 Monitors and Tracing Monitor Mode: External Monitor Accelerations: Uniform Monitor Decelerations: Variable Engineer Process Variability: Average (6-10) Short Term Variability: Present Position: Left Occiput Anterior Presentation: Vertex Signs of Distress by FHT Signs of Distress no Cord Descript/Complications Cord Vessel Description: 3 Vessels Delivery Type Infant Delivery Method: Spontaneous Vaginal Anterior Shoulder: Left Episiotomy/Perineal Laceration Laceraction(s)/Extensions: Yes Episiotomy Description: Perineal Extension/lac, 1st degree Sutures Used: Vicryl Condition of Delivery 1 minute Comment: 8 5 minute Comment: 9 Condition of Condition of : Living Exam: No Observed Abnormalities Resuscitation Resuscitation: N/A - Spontaneous Resp L&D Stage3 Stage Three Stage III Date: Apr 21, 2018 Stage III Time: 22:33 Pictocin Pitocin ml/hr: 125 Placenta Delivery Placenta Delivery: Spontaneous Delivery Summary Summary Estimated blood loss (mL): 200 Condition of Delivery Examined: Cervix Examined Post Hemorrhage: No Intervention Required none TESSIE RALPH MD Apr 21, 2018 23:00
[2018-04-21] MEDS ORDERED: BENZOCAINE/MENTHOL (DERMOPLAST) 56 ML CAN TP PRN (23:15)
[2018-04-21] MEDS ORDERED: WITCH HAZEL(TUCKS) 40 EA JAR TOP PRN (23:15)
[2018-04-21] MEDS ORDERED: HYDROcodone/APAP 5 MG/325 MG (LORTAB) TAB PO PRN (23:15)
[2018-04-21] MEDS ORDERED: MEASLES,MUMPS,RUBELLA 1 EA INJ SQ ONE (23:15)
[2018-04-21] MEDS ORDERED: TETANUS,DIPTH,PERTUSS P/F (BOOSTRIX) 0.5 ML VIAL IM ONE (23:15)
[2018-04-21] MEDS: IBUPROFEN 600 MG (MOTRIN) TAB PO SCH (23:37)
[2018-04-22] VITALS (9 sets, daily range): BP systolic 101–116; BP diastolic 54–88
[2018-04-22 05:37] LABS: BASOPHILS % (AUTO) 0 % (0-10); EOSINOPHILS % (AUTO) 0 % (0-10); HEMATOCRIT 33 % (35-52); HEMOGLOBIN 11.8 G/DL (11.5-16.0); LYMPHOCYTES # (AUTO) 1.4 X 10^3 (1.0-4.0); LYMPHOCYTES % (AUTO) 8 % (12-44); MEAN CORPUSCULAR HEMOGLOBIN 33 PG (25-34); MEAN CORPUSCULAR HGB CONC 36 G/DL (32-36); MEAN CORPUSCULAR VOLUME 92 FL (80-99); MEAN PLATELET VOLUME 10.7 FL (7.4-10.4); MONOCYTES # (AUTO) 1.4 X 10^3 (0.0-1.0); MONOCYTES % (AUTO) 9 % (0-12); NEUTROPHILS # (AUTO) 13.6 X 10^3 (1.8-7.8); NEUTROPHILS % (AUTO) 83 % (42-75); PLATELET COUNT 186 10^3/uL (130-400); RED BLOOD COUNT 3.57 10^6/uL (4.35-5.85); RED CELL DISTRIBUTION WIDTH 13.1 % (10.0-14.5); WHITE BLOOD COUNT 16.5 10^3/uL (4.3-11.0)
[2018-04-22] MEDS ORDERED: CATHETER FLUSH 10 ML SYR IV SCH (06:00)
[2018-04-22] MEDS: IBUPROFEN 600 MG (MOTRIN) TAB PO SCH ×3 (06:01→18:59)
[2018-04-22] MEDS: PRENATAL VITAMIN 1 EA TAB PO SCH (08:57)
[2018-04-23 02:09] VITALS: BP 92/53
[2018-04-23] MEDS: IBUPROFEN 600 MG (MOTRIN) TAB PO SCH ×2 (02:09→08:16)
[2018-04-23 08:00] VITALS: BP 104/62
--- NOTE | 2018-04-23 08:06 | Discharge Summary ---
Diagnosis/Chief Complaint Date of Admission Apr 21, 2018 at 22:38 Date of Discharge April 23, 2018 Discharge Date: Apr 23, 2018 Discharge Time: 07:30 Admission Diagnosis Admission Diagnosis 1. IUP at term 38 weeks 2. Precipitous delivery Discharge Diagnosis 1. IUP at term 38 weeks 2. Precipitous delivery Reason Hospital Visit 22 yo G2 now T2 who presented to L&D via EMS with possiblilty of eminent delivery. Discharge Summary-OBS Procedures 1. 2. Repair of 1st degree perineal laceration Discharge Physical Examination Allergies: Coded Allergies: NKANo Known Allergies (Verified Allergy, Mild, 04/20/18) peach (Unverified Allergy, Unknown, 04/22/16) FROM UNCODED ALLERGIES Vitals & I&Os Vital Signs Date Time Temp Pulse Resp B/P (MAP) Pulse Ox O2 Delivery O2 Flow Rate FiO2 04/23/18 02:09 96.9 83 18 92/53 (66) 98 Room Air General Appearance: No Acute Distress HEENT: Mucous Memb Moist/Winona Respiratory: Clear to Auscultation Cardiovascular: Regular Rate Abdominal: Soft (with uterus firm) Skin: No Rashes Hospital Course Patient presented to labor and delivery during the evening of April 21, 2018 She was noted to be in active labor. Patient had a full term uncomplicated course. She went on to deliver a term viable female with Apgars of 8 at 1 minute and 9 at 5 minutes. See labor and delivery summary for full details. Following delivery patient underwent routine care orders. She had no complications during the remainder of hospital stay She had hemoglobin the day after delivery of 11.8. There was no hemoglobin to compare to upon admission since she delivered precipitously. She was ambulatory and without complaints She tolerated regular diet. She had no shortness of breath or chest pain. She was felt ready for dismissal in the morning of April 23, 2018. Discharge Instructions to patient/family Please see electronic discharge instructions given to patient. Discharge Medications Reviewed and agree with Discharge Medication list on patient's Discharge Instruction sheet Clinical Quality Measures DVT/VTE Risk/Contraindication: Risk Factor Score Per Nursin RFS Level Per Nursing on Admit: 1=Low/No VTE PPX TESSIE RALPH MD Apr 23, 2018 08:06
--- NOTE | 2018-04-23 08:08 | Discharge Inst-Women's Service ---
Discharge Inst-Women's Serv Depart Medication/Instructions New, Converted or Re-Newed RX: Other (May take over the counter ibuprofen for uterine cramping) Consults/Follow Up Additional Follow Up: Yes (with Dr Ralph in 6 weeks at [facility]) Activity Activity: Activity as Tolerated Driving Instructions: No Driving for 1 Week Nothing Inside Vagina: No [place] (for 6 weeks) Diet Discharge Diet: Regular Diet Return to The Hospital For: as below Symptoms to Report to : Bleeding Excessive, Pain Increased, Fever Over 101 Degrees F, Vaginal Discharge Foul For Any Problems or Questions: Contact Your Physician TESSIE RALPH MD Apr 23, 2018 08:08
[2018-04-23] MEDS: PRENATAL VITAMIN 1 EA TAB PO SCH (08:16)
[2018-04-23] MEDS: D5 LR IV SOLUTION 1,000 ML IV SCH (11:37)
[2018-04-23 14:00] VITALS: BP 112/72
== END 2018-04-23 15:10 | disposition home or self-care (01) | DRG 775 ==
LOC: LDRP 22:16 → WSo 22:16 → LDRP 22:38 → WSo 22:38 → LDRP 04-22 01:00 → 3RD 04-22 10:19
PROVIDERS: ADMIT Family Medicine; ATTEND Family Medicine
PROC: 10E0XZZ Delivery of Products of Conception, External Approach (ICD-10-PCS; principal; 2018-04-21)
PROC: 0HQ9XZZ Repair Perineum Skin, External Approach (ICD-10-PCS; 2018-04-21)
DX: O62.3 Precipitate labor (principal); O70.0 First degree perineal laceration during delivery; Z37.0 Single live birth; Z3A.38 38 weeks gestation of pregnancy
CPT/HCPCS: 36415; 85025; 86850; 86900; 86901; 99212

== ENCOUNTER 2018-06-27 18:38 | Emergency (ER) | payer OTHER, MEDICAID ==
[~2018-06-27] VITALS: Ht 157.5 cm; Wt 63.2 kg
--- OUTSIDE RECORDS SUMMARY | 2018-06-27 18:44 | XMS REPORT ---
Author Author TESSIE RALPH [facility] Address [address] [place] [address] Care Team Providers Care Dispatcher [employer] Name Role Phone TESSIE RALPH Unavailable PROBLEMS Type Condition ICD9-CM Code [id number] Code Onset Dates Condition Status SNOMED Code Problem Missed period N92.6 Active [id number] ALLERGIES Substance Reaction Event Type Date Status peaches hives Non Drug Allergy Mar, Active ENCOUNTERS Encounter Location Date Diagnosis [place] [address] [address] May, Encounter for routine follow-up Z39.2 and Encounter for Depo-Provera contraception Z30.42 [place] [address] [address] Apr, [place] [address] [address] Mar, care, first , third trimester Z34.03 [place] [address] [place] [id number] [place] [address] Mar, 35 weeks gestation of Z3A.35 [place] [address] [place] [id number] [place] [address]- 0732 Mar, Third trimester Z34.93 [place] [address] [place] [id number] [place] [address] 93271- 7363 February, in multigravida Z34.80 and Encounter for immunization Z23 [place] [address] [place] [id number] [place] [address]29- 1637 February, Normal in multigravida Z34.80 [place] [address] [address] Jan, care, first , third trimester Z34.03 [facility] [address] [place] [id number] [place] [address] 13024- 2934 Dec, care, first , third trimester Z34.03 [facility] [id number] [place] [address]27- 1860 Nov, Encounter for supervision of normal first in second trimester Z34.02 [facility] [address] [place] [id number] [place] [address] 6[address]15- 1233 Nov, [place] [address] [place] [id number] [place] [address] 63410- 9641 Oct, Normal in multigravida Z34.80 [place] [address] [place] [id number] [place] [address] 84132- 6091 Oct, [place] [address] [place] [id number] [place] [address] 41787- 8895 Oct, [facility] [address] [place] [id number] [place] [address] 93694- 5642 Oct, [facility] [address] [place] [id number] [place] [address]188 -6[address] Oct, Missed period N92.6 [facility] [id number] [place] [address]647 May, Acute suppurative otitis media of left ear without spontaneous rupture of tympanic membrane, recurrence not specified H66.002 [facility] [address] [address] May, in first trimester Z33.2 [facility] [address] [place] [id number] [place] [address] 05662- 8255 May, [facility] [address] [address] Apr, 9 weeks gestation of Z3A.09 and Normal in multigravida Z34.80 [facility] [address] [place] [id number] [place] [address] 67554- 9064 Apr, [facility] [address] [place] [id number] [place] [address] 08017- 9406 Apr, [facility] [address] [place] [id number] [place] [address] -[address] Apr, Positive test Z32.01 and Otalgia of right ear H92.01 [facility] [address] [place] [id number] [place] [address]21 -2911 Mar, Abrasion, foot, right, initial encounter S90.811A [facility] [address] [place] [id number] [place] [address] 60222- 0710 February, [facility] [address] [place] [id number] [place] [address] 28650- 1625 Jan, [facility] [address] [place] [id number] [place] [address] 21541- 6739 Nov, [facility] [address] [place] [id number] [place] [address] 54777 -2769 Oct, Sore throat J02.9 and Strep throat J02.0 [facility] [address] [place] [id number] [place] [address] 73860- 8647 Sep, [facility] [address] [place] [id number] [place] [address] 49482- 2593 Aug, [facility] [address] [place] [id number] [place] [address] 62518- 3266 Aug, [facility] [address] [place] [id number] [place] [address] 27121- 6856 07 Jun, 2016 [facility] [address] [place] [id number] [place] [address] 55105- 7337 May, [facility] [address] [address] May, Routine follow-up Z39.2 [facility] [address] [address] Apr, Right acute otitis media H66.91 [facility] [address] [address] Apr, [facility] [address] [place] [address] 32181- 2234 Apr, care, first , third trimester Z34.03 and 39 weeks gestation of Z3A.39 [place] [address] [place] [id number] [place] [address] 78211- 9141 Mar, care, first , third trimester Z34.03 and 38 weeks gestation of Z3A.38 [place] [address] [address] Mar, [place] [address] [place] [id number] [place] [address] 31381- 0861 Mar, care, first , third trimester Z34.03 and 36 weeks gestation of Z3A.36 [place] [address] [place] [id number] [place] [address] 76704- 0962 Mar, [place] [address] [address] 750[address] Mar, [place] [address] [address] Mar, [place] [address] [place] [id number] [address] Mar, screening for streptococcus B Z36 ; care , first , third trimester Z34.03 ; Breech presentation, not applicable or unspecified fetus O32.1XX0 and 35 weeks gestation of Z3A.35 [place] [address] [address] Mar, care, first , third trimester Z34.03 ; 34 weeks gestation of Z3A.34 and Breech presentation, not applicable or unspecified fetus O32.1XX0 [place] [address] [place] [id number] [place] [address] 72269- 2267 February, care, first , third trimester Z34.03 ; 32 weeks gestation of Z3A.32 ; Syncope, unspecified syncope type R55 ; Poor appetite R63.0 ; Acute midline low back pain without sciatica M54.5 and Encounter for immunization Z23 [place] [address] [place] [id number] [place] [address] 88210- 7692 February, [place] [address] [address]- [address] February, [place] [address] [place] [id number] [place] [address] 94925- 5088 February, care, first , third trimester Z34.03 and 30 weeks gestation of Z3A.30 [place] [address] [place] [id number] [place] [address] 20874- 0006 08 Jan, 2016 Encounter for supervision of normal first in second trimester Z34.02 ; Diabetes mellitus screening Z13.1 ; Screening, iron deficiency anemia Z13.0 and 26 weeks gestation of Z3A.26 [place] [address] [place] [id number] [place] [address] 55447- 0263 Jan, [place] [address] [place] [id number] [place] [address] 27957- 9246 Dec, [place] [address] [place] [id number] [place] [address] 19584- 7630 Dec, [place] [address] [place] [id number] [place] [address] 15977- 6648 Dec, Encounter for supervision of normal first in second trimester Z34.02 and 22 weeks gestation of Z3A.22 [place] [address] [place] [id number] [place] [address] 0[address]- 1991 Dec, [place] [address] [address] 9165 Dec, Acute upper respiratory infection, unspecified J06.9 and Other viral agents as the cause of diseases classified elsewhere B97.89 [place] [address] [place] [address] 24740- 3533 12 Nov, 2015 Encounter for supervision of normal first in second trimester Z34.02 ; Vaginal candidiasis B37.3 and 18 weeks gestation of Z3A.18 [place] [address] [place] [id number] [place] [address] 61169- 7853 Nov, [place] [address] 29[address]- 1592 Oct, [place] [address] [place] [id number] [place] [address] 59955- 0790 Oct, [place] [address] [place] [id number] [place] [address] 32531- 8274 Oct, Encounter for supervision of normal first in second trimester Z34.02 and 15 weeks gestation of Z3A.15 [place] [id number] [place] [address] 71350- 1109 Sep, Encounter for supervision of normal first in first trimester Z34.01 ; Z33.1 and 11 weeks gestation of Z3A.11 [address] [place] [address] 03014- 1198 Sep, [facility] [id number] [place] [address] Sep [facility] [address] [place] [address] [place] [address] 12470 -3304 08 Sep, 2015 Encounter for test, result positive Z32.01 [place] [id number] [place] [address] 45999- 0206 17 Aug, 2015 Environmental allergies Z91.09 and Sore throat J02.9 [place] [id number] [place] [address] [place] [address] Jul, Physical exam Z00.00 [facility] [address] [id number] [id number] May, Dental examination V72.2 [facility] [address] [id number] [place] [address]- 1566 14 Jan, 2015 [facility] [address] [id number] [place] [address]- 9226 Jan, [facility] [address] [id number] [place] [address]- 9115 Dec, [facility] [address] [id number] [place] [address]- 0296 Dec, [facility] [address] [facility] [id number] [place] Sep, [facility] [address] [place] [address]- 6954 Sep, [facility] [address] [id number] [place] [address]- 2571 Aug, [facility] [address] [id number] [place] [address]- 9619 Aug, [facility] [address] [place] [id number] [place] [address]- 7653 Jan, [facility] [address] [id number] [place] [address]- 8289 Jan, [facility] [address] [id number] [address]- 0[address] Sep, [facility] [address] [id number] [place] [address]- 0560 Sep, [facility] [address] [facility] [id number] [place] [address]- 0026 Sep, [facility] [address] [facility] [id number] [address]- 4686 Sep, [facility] [place] [facility] [address] [id number] [place] [address]- 0476 Jan, [facility] [place] [facility] [address] [id number] [place] [address]- 7526 Nov, [facility] [place] [facility] [address] [id number] [place] [address] 2546 Oct, [facility] [place] [facility] [address] [id number] [place] [address]- 4366 Jul, [facility] [place] [facility] [address] [id number] [place] [address]- 9367 Jul, [facility] [place] [facility] [address] [id number] [place] [address]- 0606 Jul, [facility] [place] [facility] [address] [id number] [place] [address]- 3246 Jul, [facility] [place] [facility] [address] [id number] [place] [address]- 0829 Oct, [facility] [place] [facility] [address] [id number] [place] [address]- 8386 Dec, [facility] [place] [facility] [address] [id number] [place] [address]- 1046 Jul, [facility] [place] [facility] [address] [id number], [place] [address]- 2546 May, [facility] [place] [facility] [address] [id number], [place] [address]- 2546 Mar, [facility] [place] [facility] [address] [id number] [place] [address]- 2546 Sep, [facility] [place] [facility] [address] [id number], [place] [address]- 2546 Sep, [facility] [place] [facility] [address] [id number] [place] [address]- 2546 Jul, [facility] [place] [facility] [address] [facility] [id number] [place] [address]- 5494 Jul, [facility] [address] [facility] [id number] [place] [address]- 4445 February, [facility] [address] [facility] [id number] [place] [address]- 5027 Jan, IMMUNIZATIONS No Known Immunizations SOCIAL HISTORY Never Assessed REASON FOR VISIT OB f/u NE goode PLAN OF CARE Activity Details Follow Up 1 Week Reason: VITAL SIGNS Height 62.5 in 2018-04-01 Weight 136.0 lbs 2018-04-01 Temperature 97.8 degrees Fahrenheit 2018-04-01 Heart Rate 72 bpm 2018-04-01 Respiratory Rate 18 2018-04-01 BMI 24.478 kg/m2 2018-04-01 Blood pressure systolic 120 mmHg 2018-04-01 Blood pressure diastolic 62 mmHg 2018-04-01 MEDICATIONS Medication Instructions Dosage Frequency Start Date End Date Duration Status Tamiflu 75 MG Orally Twice a day 1 capsule 12h Dec, 5 day(s) Not-Taking Vitamins (Dis) Active TriNessa Lo 0.18/0.215/0.25 MG-25 MCG Orally Once a day 1 tablet 24h May 30 day(s) Not-Taking TriNessa (28) 0.18/0.215/0.25 MG-35 MCG Orally Once a day 1 tablet 24h May, 28 day(s) Not-Taking RESULTS No Results PROCEDURES Procedure Date Ordered Result Body Site URINE-NO MICRO April 01, 2018 STREP CULTURE April 01, 2018 INSTRUCTIONS MEDICATIONS ADMINISTERED No Known Medications MEDICAL [...] 1996 Hospitalization History kidney infection/4 days 2015 Hospitalization History [facility], Child 2 days 04/21/2018
--- OUTSIDE RECORDS SUMMARY | 2018-06-27 18:44 | XMS REPORT ---
Author Author [facility] Address [address] [place] [address] Care Team Providers Care Core Dipper Name Role Phone TESSIE RALPH Unavailable PROBLEMS Type Condition ICD9-CM Code DOA31-ZK Code Onset Dates Condition Status SNOMED Code Problem Missed period N92.6 Active [id number] ALLERGIES No Information ENCOUNTERS Encounter Location Date Diagnosis [place] [address] [address] May, Encounter for routine follow-up Z39.2 and Encounter for Depo-Provera contraception Z30.42 [place] [address] [address] Apr, [place] [address] [address] Mar, care, first , third trimester Z34.03 [place] [address] [address] Mar, 35 weeks gestation of Z3A.35 [place] [address] [address] Mar, Third trimester Z34.93 [place] [address] [address] February, in multigravida Z34.80 and Encounter for immunization Z23 [place] [address] [address] February, Normal in multigravida Z34.80 [place] [address] [address] Jan, care, first , third trimester Z34.03 [facility] [address] [address] Dec, care, first , third trimester Z34.03 [facility] [address] [place] [id number] [address] Nov, Encounter for supervision of normal first in second trimester Z34.02 [facility] [address] [place] [id number] [place] [address] 40872- 6786 Nov, [facility] [address] [place] [id number] [place] [address] 19464- 9101 Oct, Normal in multigravida Z34.80 [place] [address] [place] [id number] [place] [address]457- 6587 Oct, [place] [address] [place] [id number] [place] [address] 61448- 8234 Oct, [facility] [address] [place] [address] [id number] [address] Oct, [facility] [address] [place] [address] [id number] [place] [address] Oct, Missed period N92.6 [facility] [id number] [address] May, Acute suppurative otitis media of left ear without spontaneous rupture of tympanic membrane, recurrence not specified H66.002 [facility] [address] [address] May, in first trimester Z33.2 [place] [address] [place] [id number] [place] [address]- 73[address] May, [place] [id number] [address] Apr, 9 weeks gestation of Z3A.09 and Normal in multigravida Z34.80 [facility] [address] [address] 16[address] Apr, [facility] [address] [place] [address] [id number] [place] [address] 85906- 2288 Apr, [facility] [address] [place] [address] [id number] [place] [address] Apr, Positive test Z32.01 and Otalgia of right ear H92.01 [facility] [address] [place] [address] [id number] [place] [address]246 [address] Mar, Abrasion, foot, right, initial encounter S90.811A [facility] [address] [place] [id number] [place] [address] 84307- 8576 February, [facility] [address] [place] [address] [id number] [place] [address] 27118- 5273 Jan, [facility] [address] [place] [id number] [place] [address] 10722- 9241 Nov, [facility] [address] [place] [address] [id number] [place] [address]78 -[address] Oct, Sore throat J02.9 and Strep throat J02.0 [facility] [address] [place] [id number] [place] [address] 94896- 0397 Sep, [facility] [id number] [place] [address] 67634- 4186 Aug, [facility] [address] [place] [id number] [place] [address] 61207- 3560 Aug, [facility] [address] [place] [address] [id number] [place] [address] 26040- 0060 Jun, [facility] [address] [place] [id number] [place] [address] 19454- 7190 May, [facility] [id number] [place] [address] 59090- 2282 May, Routine follow-up Z39.2 [facility] [address] [place] [id number] [address] Apr, Right acute otitis media H66.91 [facility] [address] [id number] [address] Apr, [facility] [address] [place] [address] [id number] [address] 07[address] Apr, care, first , third trimester Z34.03 and 39 weeks gestation of Z3A.39 [place] [address] [address] Mar, care, first , third trimester Z34.03 and 38 weeks gestation of Z3A.38 [facility] [address] [address] Mar, [place] [address] [address] Mar, care, first , third trimester Z34.03 and 36 weeks gestation of Z3A.36 [place] [address] [address] Mar, [facility] [address] [place] [address] [id number] [address] Mar, [place] [address] [place] [id number] [address] 5[address] Mar, [facility] [address] [place] [address] [id number] [address] Mar, screening for streptococcus B Z36 ; care , first , third trimester Z34.03 ; Breech presentation, not applicable or unspecified fetus O32.1XX0 and 35 weeks gestation of Z3A.35 [facility] [address] [place] [address] [id number] [address] Mar, care, first , third trimester Z34.03 ; 34 weeks gestation of Z3A.34 and Breech presentation, not applicable or unspecified fetus O32.1XX0 [place] [address] [id number] [place] [address] 9[address]14- 1608 February, care, first , third trimester Z34.03 ; 32 weeks gestation of Z3A.32 ; Syncope, unspecified syncope type R55 ; Poor appetite R63.0 ; Acute midline low back pain without sciatica M54.5 and Encounter for immunization Z23 [place] [address] [place] [id number] [place] [address] 37788- 8035 February, [place] [address] [place] [id number] [place] [address] 87152- 0151 February, [place] [address] [place] [id number] [place] [address] 87000- 4133 February, care, first , third trimester Z34.03 and 30 weeks gestation of Z3A.30 [place] [id number] [place] [address] 07719- 5940 Jan, Encounter for supervision of normal first in second trimester Z34.02 ; Diabetes mellitus screening Z13.1 ; Screening, iron deficiency anemia Z13.0 and 26 weeks gestation of Z3A.26 [place] [address] [place] [id number] [place] [address] 34247- 8721 Jan, [place] [address] [place] [id number] [place] [address] 93615- 9944 Dec, [place] [address] [place] [id number] [place] [address] 87403- 9001 Dec, [place] [address] [place] [id number] [place] [address] 48686- 9575 Dec, Encounter for supervision of normal first in second trimester Z34.02 and 22 weeks gestation of Z3A.22 [place] [address] [place] [id number] [place] [address] 47722- 4004 Dec, [place] [address] [place] [id number] [place] [address] 60748- 5087 Dec, Acute upper respiratory infection, unspecified J06.9 and Other viral agents as the cause of diseases classified elsewhere B97.89 [place] [id number] [place] [address] 06411- 2451 12 Nov, 2015 Encounter for supervision of normal first in second trimester Z34.02 ; Vaginal candidiasis B37.3 and 18 weeks gestation of Z3A.18 [place] [address] [place] [id number] [place] [address] 12615- 1588 Nov, [place] [address] [place] [id number] [place] [address] 65426- 7614 Oct, [place] [address] [place] [id number] [place] [address] 75693- 4378 Oct, [place] [address] [place] [id number] [place] [address] 51453- 5492 Oct, Encounter for supervision of normal first in second trimester Z34.02 and 15 weeks gestation of Z3A.15 [place] [id number] [place] [address] 46303- 9858 Sep, Encounter for supervision of normal first in first trimester Z34.01 ; Z33.1 and 11 weeks gestation of Z3A.11 [place] [id number] [place] [address] 52992- 9714 Sep, [facility] [id number] [place] [address] Sep [facility] [id number] [place] [address] 22943 -3075 08 Sep, 2015 Encounter for test, result positive Z32.01 [place] [id number] [place] [address] 11918- 1102 17 Aug, 2015 Environmental allergies Z91.09 and Sore throat J02.9 [place] [id number] [place] [address] 41694- 0975 Jul, Physical exam Z00.00 [facility] [address] [id number] [address] May, Dental examination V72.2 [facility] [address] [id number] [place] [address]- 0179 Jan, [facility] [address] [facility] [id number] [place] [address] Jan, [facility] [address] [id number] [place] [address] 8048 Dec, [facility] [address] [id number] [place] [address] Dec, [facility] [address] [facility] [id number] [place] [address] Sep, [facility] [address] [id number] [place] [address]- 0577 Sep, [facility] [address] [id number] [place] [address]- 5701 Aug, [facility] [address] [id number] [place] [address]- 8976 Aug, [facility] [address] [facility] [id number] [place] [address]- 7731 Jan, [facility] [address] [id number] [place] [address]- 5699 Jan, [facility] [address] [id number] [place] [address]- 2817 Sep, [facility] [address] [id number] [place] [address] Sep, [facility] [address] [facility] [id number] [place] [address]- 4024 Sep, [facility] [address] [facility] [id number] [place] [address]- 8761 Sep, [facility] [address] [id number] [place] [address]- 9125 Jan, [facility] [address] [id number] [place] [address]- 1766 Nov, [facility] [address] [id number] [place] [address]- 5926 Oct, [facility] [address] [id number] [place] [address]- 1259 Jul, [facility] [address] [id number] [place] [address]- 6701 Jul, [facility] [address] [id number] [place] [address], [place] [address]- 4925 Jul, [facility] [address] [id number] [place] [address]- 7923 Jul, [facility] [address] [id number] [place] [address]- 6962 Oct, [facility] [address] [id number] [place] [address]- 6954 Dec, [facility] [address] [id number] [place] [address]- 5517 Jul, [facility] [address] [facility] [id number] [place] [address]- 1109 May, [facility] [address] [id number] [place] [address]- 2543 Mar, [facility] [address] [id number] [place] [address]- 2546 Sep, [facility] [place] [facility] [address] [id number] [place] [address]- 2546 Sep, [facility] [place] [facility] [address] [id number] [place] [address]- 2546 30 Jul, 2009 [facility] [address] [id number] [place] [address]- 3666 Jul, [facility] [address] [facility] [id number] [place] [address]- 2800 February, [facility] [address] [facility] [id number] [place] [address]- 8342 Jan, IMMUNIZATIONS No Known Immunizations SOCIAL HISTORY Never Assessed REASON FOR VISIT OB f/u 2wk PLAN OF CARE Activity Details Follow Up 1 Week Reason: VITAL SIGNS Height 62.5 in 2018-04-08 Weight 137.7 lbs 2018-04-08 Temperature 98.7 degrees Fahrenheit 2018-04-08 Heart Rate 74 bpm 2018-04-08 Respiratory Rate 18 2018-04-08 BMI 24.784 kg/m2 2018-04-08 Blood pressure systolic 122 mmHg 2018-04-08 Blood pressure diastolic 60 mmHg 2018-04-08 MEDICATIONS Medication Instructions Dosage Frequency Start Date End Date Duration Status TriNessa (28) 0.18/0.215/0.25 MG-35 MCG Orally Once a day 1 tablet 24h May, 28 day(s) Not-Taking Vitamins (Dis) Active TriNessa Lo 0.18/0.215/0.25 MG-25 MCG Orally Once a day 1 tablet 24h 09 May 30 day(s) Not-Taking Tamiflu 75 MG Orally Twice a day 1 capsule 12h Dec, 5 day(s) Not-Taking RESULTS Name Result Date Reference Range UA OB DIP (IN HOUSE) 2018-04-08 Glucose negative Protein trace PROCEDURES Procedure Date Ordered Result Body Site URINE-NO MICRO April 08, 2018 INSTRUCTIONS MEDICATIONS ADMINISTERED No Known Medications [...]
--- OUTSIDE RECORDS SUMMARY | 2018-06-27 18:44 | XMS REPORT ---
Author Author TESSIE RALPH [facility] Address [address] [place] [address] Care Team Providers Care Python Consultant Name Role Phone TESSIE RALPH Unavailable PROBLEMS Type Condition ICD9-CM Code FGF88-RC Code Onset Dates Condition Status SNOMED Code Problem Missed period N92.6 Active [id number] ALLERGIES No Information ENCOUNTERS Encounter Location Date Diagnosis [place] [address] [address] May, Encounter for routine follow-up Z39.2 and Encounter for Depo-Provera contraception Z30.42 [place] [address] [address] Apr, [place] [address] [address] Mar, care, first , third trimester Z34.03 [place] [address] [address] Mar, 35 weeks gestation of Z3A.35 [place] [address] [address] Mar, Third trimester Z34.93 [place] [address] [address] February, in multigravida Z34.80 and Encounter for immunization Z23 [place] [address] [address] February, Normal in multigravida Z34.80 [place] [address] [address] Jan, care, first , third trimester Z34.03 [facility] [address] [address] Dec, care, first , third trimester Z34.03 [facility] [address] [place] [id number] [address] Nov, Encounter for supervision of normal first in second trimester Z34.02 [facility] [address] [place] [id number] [place] [address] Nov, [facility] [address] [place] [id number] [place] [address]- 5034 Oct, Normal in multigravida Z34.80 [place] [address] [place] [id number] [place] [address]- 4129 Oct, [place] [address] [place] [id number] [place] [address]- 4684 Oct, [facility] [id number] [address] Oct, [facility] [address] [place] [id number] [place] [address] Oct, Missed period N92.6 [facility] [address] [address] May, Acute suppurative otitis media of left ear without spontaneous rupture of tympanic membrane, recurrence not specified H66.002 [facility] [address] [address] May, in first trimester Z33.2 [place] [address] [place] [id number] [place] [address]- [address] May, [place] [address] [address] Apr, 9 weeks gestation of Z3A.09 and Normal in multigravida Z34.80 [facility] [address] [address] Apr, [facility] [address] [place] [id number] [place] [address] 58855- [address]896 Apr, [facility] [address] [place] [address] [id number] [place] [address] Apr, Positive test Z32.01 and Otalgia of right ear H92.01 [facility] [address] [place] [id number] [place] [address] Mar, Abrasion, foot, right, initial encounter S90.811A [facility] [address] [place] [id number] [place] [address] 28582- 4638 February, [facility] [address] [place] [id number] [place] [address] 62652- 7478 Jan, [facility] [address] [place] [id number] [place] [address] 47921- 9080 Nov, [facility] [address] [place] [id number] [place] [address] Oct, Sore throat J02.9 and Strep throat J02.0 [facility] [address] [place] [id number] [place] [address] 05399- 4477 Sep, [facility] [id number] [place] [address] 69840- 3458 Aug, [facility] [address] [place] [id number] [place] [address] 88282- 9388 Aug, [facility] [address] [place] [id number] [place] [address] 44[address]- 3802 Jun, [facility] [address] [place] [id number] [place] [address] 32183- 9312 May, [facility] [id number] [place] [address] 08852- 7484 May, Routine follow-up Z39.2 [facility] [id number] [address] Apr, Right acute otitis media H66.91 [facility] [address] [id number] [address] Apr, [facility] [address] [id number] [address] Apr, care, first , third trimester Z34.03 and 39 weeks gestation of Z3A.39 [place] [address] [address] Mar, care, first , third trimester Z34.03 and 38 weeks gestation of Z3A.38 [facility] [address], [place] [address] Mar, [place] [address] [address] Mar, care, first , third trimester Z34.03 and 36 weeks gestation of Z3A.36 [place] [address], [place] [address] Mar, [facility] [address] [place] [id number] [address] Mar, [place] [address] [place] [id number] [address] Mar, [facility] [address] [address] [id number] [address] Mar, screening for streptococcus B Z36 ; care , first , third trimester Z34.03 ; Breech presentation, not applicable or unspecified fetus O32.1XX0 and 35 weeks gestation of Z3A.35 [facility] [id number] [address] Mar, care, first , third trimester Z34.03 ; 34 weeks gestation of Z3A.34 and Breech presentation, not applicable or unspecified fetus O32.1XX0 [place] [address] [place] [id number] [place] [address]80- [address] February, care, first , third trimester Z34.03 ; 32 weeks gestation of Z3A.32 ; Syncope, unspecified syncope type R55 ; Poor appetite R63.0 ; Acute midline low back pain without sciatica M54.5 and Encounter for immunization Z23 [place] [address] [place] [id number] [place] [address]10- 3211 February, [place] [address] [place] [id number] [place] [address] 45626- 8300 February, [place] [address] [place] [id number] [place] [address] 22844- 3114 February, care, first , third trimester Z34.03 and 30 weeks gestation of Z3A.30 [place] [id number] [place] [address]- 4[address] Jan, Encounter for supervision of normal first in second trimester Z34.02 ; Diabetes mellitus screening Z13.1 ; Screening, iron deficiency anemia Z13.0 and 26 weeks gestation of Z3A.26 [place] [address] [place] [id number] [place] [address] 97381- 5873 Jan, [place] [address] [place] [id number] [place] [address] 65670- 5300 Dec, [place] [address] [place] [id number] [place] [address] 14881- 1311 Dec, [place] [address] [place] [id number] [place] [address] 82929- 4458 Dec, Encounter for supervision of normal first in second trimester Z34.02 and 22 weeks gestation of Z3A.22 [place] [address] [place] [id number] [place] [address] 72853- 2322 Dec, [place] [address] [place] [id number] [place] [address] 40713- 5266 Dec, Acute upper respiratory infection, unspecified J06.9 and Other viral agents as the cause of diseases classified elsewhere B97.89 [place] [address] [place] [address] 74619- 5342 12 Nov, 2015 Encounter for supervision of normal first in second trimester Z34.02 ; Vaginal candidiasis B37.3 and 18 weeks gestation of Z3A.18 [place] [address] [place] [id number] [place] [address] 00316- 7920 Nov, [place] [address] [place] [id number] [place] [address] 60503- 5219 Oct, [place] [address] [place] [id number] [place] [address] 08877- 6779 Oct, [place] [address] [place] [id number] [place] [address] 99841- 7585 Oct, Encounter for supervision of normal first in second trimester Z34.02 and 15 weeks gestation of Z3A.15 [place] [address] [place] [address] 61106- 5626 Sep, Encounter for supervision of normal first in first trimester Z34.01 ; Z33.1 and 11 weeks gestation of Z3A.11 [place] [address] [place] [address] 68838- 3209 Sep, [facility] [id number] [place] [address] Sep [facility] [id number] [place] [address] 58096 -1887 08 Sep, 2015 Encounter for test, result positive Z32.01 [place] [id number] [place] [address] 37462- 5052 17 Aug, 2015 Environmental allergies Z91.09 and Sore throat J02.9 [place] [id number] [place] [address] 36246- 5763 Jul, Physical exam Z00.00 [facility] [address] [id number] [address] May, Dental examination V72.2 [facility] [address] [id number] [place] [address] 9[address] Jan, [facility] [address] [facility] [id number] [place] [address] Jan, [facility] [address] [id number] [address] 3414 Dec, [facility] [address] [id number] [place] Dec, [facility] [address] [facility] [id number] [address] Sep, [facility] [address] [id number] [address]- 2334 Sep, [facility] [address] [id number], [place] [address]- 4436 Aug, [facility] [address] [id number] [address]- 5424 Aug, [facility] [address] [facility] [id number], [place] [address]- 0187 Jan, [facility] [address] [id number] [address]- 8260 Jan, [facility] [address] [id number], [place] [address]- 4542 Sep, [facility] [address] [id number] [address]14 Sep, [facility] [address] [facility] [id number][place] [address]- 3591 Sep, [facility] [address] [facility] [id number] [address]- 9941 Sep, [facility] [address] [id number] [place] [address]- 9579 Jan, [facility] [address] [id number] [place] [address]- 0802 Nov, [facility] [address] [id number] [place] [address]- 8586 Oct, [facility] [address] [id number] [place] [address]- 5184 Jul, [facility] [address] [id number] [place] [address]- 2100 Jul, [facility] [id number] [place] [address], [place] [address]- 0198 Jul, [facility] [address] [id number] [place] [address]- 6560 Jul, [facility] [address] [id number] [place] [address]- 3466 Oct, [facility] [address] [id number] [place] [address]- 0372 Dec, [facility] [address] [id number] [place] [address]- 9432 Jul, [facility] [address] [facility] [id number] [place] [address]- 5714 May, [facility] [address] [id number] [place] [address]- 254 Mar, [facility] [address] [id number] [place] [address]- 2546 Sep, [facility] [place] [facility] [address] [id number] [place] [address]- 2546 Sep, [facility] [place] [facility] [address] [id number] [place] [address]- 2546 30 Jul, 2009 [facility] [address] [id number] [place] [address]- 0641 Jul, [facility] [address] [facility] [id number] [place] February, [facility] [address] [facility] [id number] [place] Jan, IMMUNIZATIONS No Known Immunizations SOCIAL HISTORY Never Assessed REASON FOR VISIT Reschedule OB appt PLAN OF CARE VITAL SIGNS MEDICATIONS Unknown [...]
--- OUTSIDE RECORDS SUMMARY | 2018-06-27 18:45 | XMS REPORT ---
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 Name Role Phone TESSIE RALPH Unavailable PROBLEMS Type Condition ICD9-CM Code [id number] Code Onset Dates Condition Status SNOMED Code Problem Missed period N92.6 Active 38729649 ALLERGIES Substance Reaction Event Type Date Status peaches hives Non Drug Allergy February, Active ENCOUNTERS Encounter Location Date Diagnosis [place] [address] [address] May, [place] [address] [address]- 3345 Apr, [place] [address] [address]99 Mar, care, first , third trimester Z34.03 [place] [address] [address]- [address] Mar, 35 weeks gestation of Z3A.35 [place] [address] [place] [id number] [place] [address] 23638- 1022 Mar, Third trimester Z34.93 [place] [address] [address]- [address] February, in multigravida Z34.80 and Encounter for immunization Z23 [place] [address] [address]- 8926 February, Normal in multigravida Z34.80 [place] [address] [place] [id number] [place] [address]95- 2742 Jan, care, first , third trimester Z34.03 [facility] [address] [address] Dec, care, first , third trimester Z34.03 [facility] [address] [place] [id number] [place] [address] 62269- 8117 Nov, Encounter for supervision of normal first in second trimester Z34.02 [facility] [address] [place] [id number] [place] [address] 39184- 7020 Nov, [facility] [address] [place] [id number] [place] [address] 74072- 3890 Oct, Normal in multigravida Z34.80 [place] [address] [place] [id number] [place] [address] 46511- 4349 Oct, [facility] [address] [place] [id number] [place] [address] 81993- 9522 Oct, [facility] [address] [place] [id number] [place] [address] 57427- 0792 Oct, [facility] [address] [place] [id number] [place] [address] 16793 -1312 Oct, Missed period N92.6 [facility] [address] [place] [id number] [place] [address] 24775 -9461 May, Acute suppurative otitis media of left ear without spontaneous rupture of tympanic membrane, recurrence not specified H66.002 [facility] [id number] [address] May, in first trimester Z33.2 [facility] [address] [place] [id number] [place] [address] 60089- 4157 May, [facility] [address] [place] [id number] [place] [address] 74753- 0091 Apr, 9 weeks gestation of Z3A.09 and Normal in multigravida Z34.80 [place] [address] [place] [id number] [address] Apr, [facility] [address] [place] [id number] [place] [address] 44811- 9050 Apr, [facility] [address] [place] [id number] [place] [address] 70577 -2892 Apr, Positive test Z32.01 and Otalgia of right ear H92.01 [facility] [address] [place] [id number] [place] [address] 67277 -3140 Mar, Abrasion, foot, right, initial encounter S90.811A [place] [address] [address]25- 6978 February, [facility] [address] [place] [id number] [place] [address] 28951- 0542 Jan, [facility] [address] [place] [id number] [place] [address] 56477- 5309 Nov, [facility] [address] [place] [id number] [place] [address] 06921 -0810 Oct, Sore throat J02.9 and Strep throat J02.0 [facility] [address] [place] [id number] [place] [address] 37438- 3228 Sep, [facility] [address] [place] [id number] [place] [address] 06431- 5100 Aug, [facility] [address] [place] [id number] [place] [address] 22562- 4715 Aug, [facility] [address] [place] [id number] [place] [address] 93601- 1876 Jun, [facility] [address] [place] [id number] [place] [address] 91065- 1550 May, [facility] [id number] [place] [address] 51459- 6832 May, Routine follow-up Z39.2 [facility] [address] [facility] [id number] [address] Apr, Right acute otitis media H66.91 [facility] [address], [place] [address] 2697 Apr, [facility] [address] [place] [id number] [address] 4435 Apr, care, first , third trimester Z34.03 and 39 weeks gestation of Z3A.39 [facility] [address], [place] [address] 30 Mar, 2016 care, first , third trimester Z34.03 and 38 weeks gestation of Z3A.38 [facility] [address] [address]- 7257 Mar, [place] [address] [address]- 6323 Mar, care, first , third trimester Z34.03 and 36 weeks gestation of Z3A.36 [place] [address], [place] [address]- 3878 Mar, [place] [address] [place] [id number] [address]- 5187 Mar, [facility] [address] [place] [id number] [address]- 4677 Mar, [facility] [address] [place] [id number] [address]- 9816 Mar, screening for streptococcus B Z36 ; care , first , third trimester Z34.03 ; Breech presentation, not applicable or unspecified fetus O32.1XX0 and 35 weeks gestation of Z3A.35 [facility] [address] [place] [id number] [address]- 3[address] Mar, care, first , third trimester Z34.03 ; 34 weeks gestation of Z3A.34 and Breech presentation, not applicable or unspecified fetus O32.1XX0 [place] [id number] [place] [address] 16411- 8917 February, care, first , third trimester Z34.03 ; 32 weeks gestation of Z3A.32 ; Syncope, unspecified syncope type R55 ; Poor appetite R63.0 ; Acute midline low back pain without sciatica M54.5 and Encounter for immunization Z23 [place] [address] [place] [id number] [place] [address] 73411- 7468 February, [place] [address] [place] [id number] [place] [address] 31874- 1650 February, [place] [address] [place] [id number] [place] [address] 47763- 4802 February, care, first , third trimester Z34.03 and 30 weeks gestation of Z3A.30 [place] [id number] [place] [address] 33543- 0613 Jan, Encounter for supervision of normal first in second trimester Z34.02 ; Diabetes mellitus screening Z13.1 ; Screening, iron deficiency anemia Z13.0 and 26 weeks gestation of Z3A.26 [place] [id number] [place] [address] 52630- 6265 Jan, [place] [address] [place] [id number] [place] [address] 36137- 5118 Dec, [place] [address] [place] [id number] [place] [address] 68871- 2918 Dec, [place] [address] [place] [id number] [place] [address] 25444- 4464 Dec, Encounter for supervision of normal first in second trimester Z34.02 and 22 weeks gestation of Z3A.22 [place] [address] [place] [id number] [place] [address] 88890- 5306 Dec, [place] [address] [place] [id number] [place] [address] 68519- 7603 Dec, Acute upper respiratory infection, unspecified J06.9 and Other viral agents as the cause of diseases classified elsewhere B97.89 [place] [address] [place] [id number] [place] [address] 69773- 3533 12 Nov, 2015 Encounter for supervision of normal first in second trimester Z34.02 ; Vaginal candidiasis B37.3 and 18 weeks gestation of Z3A.18 [place] [address] 01501- 7968 Nov, [place] [address] 23847- 8395 Oct, [place] [address] 32331- 3910 Oct, [place] [address] [place] [id number] [place] [address] 05621- 0340 Oct, Encounter for supervision of normal first in second trimester Z34.02 and 15 weeks gestation of Z3A.15 [place] [address] [place] [id number] [place] [address] 38097- 3412 Sep, Encounter for supervision of normal first in first trimester Z34.01 ; Z33.1 and 11 weeks gestation of Z3A.11 [place] [address] [place] [address] 24040- 2758 22 Sep, 2015 [facility] [id number] [place] [address] Sep [facility] [id number] [place] [address] 45661 -4045 08 Sep, 2015 Encounter for test, result positive Z32.[address] 49991- 9820 17 Aug, 2015 Environmental allergies Z91.09 and Sore throat J02.9 [place] [id number] [place] [address] 72020- 1885 13 Jul, 2015 Physical exam Z00.00 [facility] [place] [facility] [address] [id number] [id number] May, Dental examination V72.2 [facility] [place] [facility] [address] [id number] [place] [address] 14 Jan, 2015 [facility] [place] [facility] [address] [id number] [place] [address]- 4715 Jan, [facility] [place] [facility] [address] [id number] [place] [address] Dec, [facility] [place] [facility] [address] [id number] [place] [address]- 1323 Dec, [facility] [place] [facility] [address] [id number] [place] [address]558 Sep, [facility] [place] [facility] [address] [id number] [address]- 2364 Sep, [facility] [address] [id number], [place] [address]- 9507 Aug, [facility] [place] [facility] [address] [id number] [address]- 6052 Aug, [facility] [address] [facility] [id number] [address]- 5914 Jan, [facility] [place] [facility] [address] [id number] [address]- 3763 Jan, [facility] [place] [facility] [address] [id number]- 1520 Sep, [facility] [place] [facility] [address] [id number] [address]133 Sep, [facility] [place] [facility] [address] [id number] [address]- 9974 Sep, [facility] [place] [facility] [address] [facility] [id number] [address]- 2026 Sep, [facility] [place] [facility] [address] [id number] [address]- 4998 Jan, [facility] [place] [facility] [address] [id number] [place] [address]- 6045 Nov, [facility] [place] [facility] [address] [facility] [id number] [address]- 6314 Oct, [facility] [place] [facility] [address] [facility] [id number] [place] [address]- 5450 Jul, [facility] [place] [facility] [address] [id number] [place] [address]- 9103 Jul, [facility] [place] [facility] [address] [facility] [id number] [place] [address], [place] [address]- 3244 Jul, [facility] [place] [facility] [address] [facility] [id number] [place] [address]- 9925 Jul, [facility] [address] [facility] [id number][place] [address]- 5647 Oct, [facility] [place] [facility] [address] [facility] [id number] [address]- 2578 Dec, [facility] [place] [facility] [address] [facility] [id number] [address]- 2905 Jul, [facility] [place] [facility] [address] [facility] [id number][place] [address]- 1510 May, [facility] [place] [facility] [address] [facility] [id number] [address]- 1324 Mar, [facility] [place] [facility] [address] [facility] [id number] [address]- 7751 Sep, [facility] [place] [facility] [address] [facility] [id number] [address]- 2757 Sep, [facility] [place] [facility] [address] [facility] [id number] [address]- 2516 30 Jul, 2009 [facility] [place] [facility] [address] [facility] [id number] [address]- 8796 Jul, [facility] [place] [facility] [address] [facility] [id number] [place] [address]- 7541 February, [facility] [address] [facility] [id number] [address]- 0435 Jan, IMMUNIZATIONS No Known Immunizations SOCIAL HISTORY Never Assessed REASON FOR VISIT OB f/u 4 wk--Benson pt has experienced swollen feet and they turned purple PLAN OF CARE Activity Details Follow Up 2 Weeks Reason: VITAL SIGNS Height 62.5 in 2018-02-18 Weight 133.3 lbs 2018-02-18 Temperature 97.6 degrees Fahrenheit 2018-02-18 Heart Rate 70 bpm 2018-02-18 Respiratory Rate 20 2018-02-18 BMI 23.992 kg/m2 2018-02-18 Blood pressure systolic 100 mmHg 2018-02-18 Blood pressure diastolic 56 mmHg 2018-02-18 MEDICATIONS Medication Instructions Dosage Frequency Start Date End Date Duration Status Vitamins (Dis) Active TriNessa (28) 0.18/0.215/0.25 MG-35 MCG Orally Once a day 1 tablet 24h May, 28 day(s) Not-Taking Tamiflu 75 MG Orally Twice a day 1 capsule 12h Dec, 5 day(s) Not-Taking TriNessa Lo 0.18/0.215/0.25 MG-25 MCG Orally Once a day 1 tablet 24h May 30 day(s) Not-Taking RESULTS Name Result Date Reference Range Ultrasound : OB, Follow-up 2018-03-04 UA OB DIP (IN HOUSE) 2018-02-18 Glucose neg Protein neg PROCEDURES Procedure Date Ordered Result Body Site URINE-NO MICRO February 18, 2018 INSTRUCTIONS MEDICATIONS ADMINISTERED No Known Medications [...]
--- OUTSIDE RECORDS SUMMARY | 2018-06-27 18:45 | XMS REPORT ---
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 Name Role Phone TESSIE RALPH Unavailable PROBLEMS Type Condition ICD9-CM Code IRI62-IX Code Onset Dates Condition Status SNOMED Code Problem Missed period N92.6 Active 52119179 ALLERGIES Substance Reaction Event Type Date Status peaches hives Non Drug Allergy February, Active ENCOUNTERS Encounter Location Date Diagnosis [place] [address] [address] May, [place] [address] [address] Apr, [place] [address] [address] Mar, care, first , third trimester Z34.03 [place] [address] [address] Mar, 35 weeks gestation of Z3A.35 [place] [address] [place] [id number] [place] [address] 76171- 2332 Mar, Third trimester Z34.93 [place] [address] [address] February, in multigravida Z34.80 and Encounter for immunization Z23 [place] [address] [address] February, Normal in multigravida Z34.80 [place] [address] [place] [id number] [place] [address] 58683- 0370 Jan, care, first , third trimester Z34.03 [facility] [address] [address] Dec, care, first , third trimester Z34.03 [facility] [address] [place] [id number] [place] [address] 40392- 0160 Nov, Encounter for supervision of normal first in second trimester Z34.02 [facility] [address] [place] [id number] [place] [address] 33855- 7470 Nov, [facility] [address] [place] [id number] [place] [address] 14352- 9002 Oct, Normal in multigravida Z34.80 [place] [address] [place] [id number] [place] [address] 44945- 1862 Oct, [facility] [address] [place] [id number] [place] [address] 41637- 9046 Oct, [facility] [address] [place] [id number] [place] [address] 01902- 0199 Oct, [facility] [address] [place] [id number] [place] [address] 37517 -7162 Oct, Missed period N92.6 [facility] [address] [place] [id number] [place] [address] 44965 -7727 May, Acute suppurative otitis media of left ear without spontaneous rupture of tympanic membrane, recurrence not specified H66.002 [facility] [address], [place] [address] May, in first trimester Z33.2 [facility] [address] [place] [id number] [place] [address] 67228- 1873 May, [facility] [address] [place] [id number] [place] [address] 86907- 1828 Apr, 9 weeks gestation of Z3A.09 and Normal in multigravida Z34.80 [place] [address] [place] [id number] [address] Apr, [facility] [address] [place] [id number] [place] [address] 94570- 2366 Apr, [facility] [address] [place] [id number] [place] [address] 27117 -7035 Apr, Positive test Z32.01 and Otalgia of right ear H92.01 [facility] [address] [place] [id number] [place] [address] 18302 -2742 Mar, Abrasion, foot, right, initial encounter S90.811A [place] [address] 36644- 7151 February, [facility] [address] [place] [id number] [place] [address] 92316- 1844 Jan, [facility] [address] [place] [id number] [place] [address] 57817- 8441 Nov, [facility] [address] [place] [id number] [place] [address] 82354 -2647 Oct, Sore throat J02.9 and Strep throat J02.0 [facility] [address] [place] [id number] [place] [address] 83563- 7484 Sep, [facility] [address] [place] [id number] [place] [address] 10777- 8648 Aug, [facility] [address] [place] [id number] [place] [address] 35596- 6021 Aug, [facility] [address] [place] [id number] [place] [address] 14889- 1113 Jun, [facility] [address] [place] [id number] [place] [address] 55336- 3840 May, [facility] [address] [place] [address] 33656- 5598 May, Routine follow-up Z39.2 [facility] [address] [facility] [id number] [address] Apr, Right acute otitis media H66.91 [facility] [address], [place] [address] 77[address] Apr, [facility] [address] [place] [id number] [address]- 7940 Apr, care, first , third trimester Z34.03 and 39 weeks gestation of Z3A.39 [facility] [address], [place] [address] 0[address] 30 Mar, 2016 care, first , third trimester Z34.03 and 38 weeks gestation of Z3A.38 [facility] [address], [place] [address]- 8463 Mar, [place] [address], [place] [address]- 1432 Mar, care, first , third trimester Z34.03 and 36 weeks gestation of Z3A.36 [place] [address], [place] [address]- 1114 Mar, [place] [address] [place] [id number] [address]- 1656 Mar, [facility] [address] [place] [id number], [place] [address]- 9231 Mar, [facility] [address] [place] [id number], [place] [address]- 9628 Mar, screening for streptococcus B Z36 ; care , first , third trimester Z34.03 ; Breech presentation, not applicable or unspecified fetus O32.1XX0 and 35 weeks gestation of Z3A.35 [facility] [address] [place] [id number] [address]- 0236 Mar, care, first , third trimester Z34.03 ; 34 weeks gestation of Z3A.34 and Breech presentation, not applicable or unspecified fetus O32.1XX0 [place] [id number] [place] [address] 55778- 2922 February, care, first , third trimester Z34.03 ; 32 weeks gestation of Z3A.32 ; Syncope, unspecified syncope type R55 ; Poor appetite R63.0 ; Acute midline low back pain without sciatica M54.5 and Encounter for immunization Z23 [place] [address] [place] [id number] [place] [address] 77698- 3088 February, [place] [address] [place] [id number] [place] [address] 04140- 2360 February, [place] [address] [place] [id number] [place] [address] 56020- 6468 February, care, first , third trimester Z34.03 and 30 weeks gestation of Z3A.30 [place] [id number] [place] [address] 44441- 9622 Jan, Encounter for supervision of normal first in second trimester Z34.02 ; Diabetes mellitus screening Z13.1 ; Screening, iron deficiency anemia Z13.0 and 26 weeks gestation of Z3A.26 [place] [id number] [place] [address] 27584- 0513 Jan, [place] [address] [place] [id number] [place] [address] 71598- 0509 Dec, [place] [address] [place] [id number] [place] [address] 38528- 6310 Dec, [place] [address] [place] [id number] [place] [address] 76705- 9813 Dec, Encounter for supervision of normal first in second trimester Z34.02 and 22 weeks gestation of Z3A.22 [place] [address] [place] [id number] [place] [address] 13904- 5630 Dec, [place] [address] [place] [id number] [place] [address] 57940- 8727 Dec, Acute upper respiratory infection, unspecified J06.9 and Other viral agents as the cause of diseases classified elsewhere B97.89 [place] [address] [place] [id number] [place] [address] 27637- 4262 12 Nov, 2015 Encounter for supervision of normal first in second trimester Z34.02 ; Vaginal candidiasis B37.3 and 18 weeks gestation of Z3A.18 [place] [address] 79116- 5438 Nov, [place] [address] 37276- 8018 Oct, [place] [address] 75946- 0913 Oct, [place] [address] [place] [id number] [place] [address] 38215- 8654 Oct, Encounter for supervision of normal first in second trimester Z34.02 and 15 weeks gestation of Z3A.15 [place] [address] [place] [id number] [place] [address] 11775- 8556 Sep, Encounter for supervision of normal first in first trimester Z34.01 ; Z33.1 and 11 weeks gestation of Z3A.11 [place] [address] [place] [address] 25583- 7220 22 Sep, 2015 [facility] [place] [facility] [id number] [place] [address] Sep [facility] [address] [place] [address] 08582 -7231 08 Sep, 2015 Encounter for test, result positive Z32.[address] 26151- 9952 17 Aug, 2015 Environmental allergies Z91.09 and Sore throat J02.9 [place] [id number] [place] [address] 59156- 4554 13 Jul, 2015 Physical exam Z00.00 [facility] [place] [facility] [address] [id number] [id number] May, Dental examination V72.2 [facility] [place] [facility] [address] [id number] [place] [id number]46 14 Jan, 2015 [facility] [place] [facility] [address] [id number] [place] [address]- 8171 Jan, [facility] [place] [facility] [address] [id number] [place] [address]221 Dec, [facility] [place] [facility] [address] [id number] [place] [address]- 0754 Dec, [facility] [place] [facility] [address] [id number] [place] 8590 Sep, [facility] [place] [facility] [address] [id number], [place] [address]- 0887 Sep, [facility] [address] [id number], [place] [address]- 4974 Aug, [facility] [place] [facility] [address] [id number], [place] [address]- 8358 Aug, [facility] [address] [facility] [id number], [place] [address]- 5277 Jan, [facility] [place] [facility] [address] [id number] [address]- 9922 Jan, [facility] [place] [facility] [address] [id number] 4544 Sep, [facility] [place] [facility] [address] [id number] 2443 Sep, [facility] [place] [facility] [address] [id number], [place] [address]- 4512 Sep, [facility] [place] [facility] [address] [facility] [id number], [place] [address]- 8662 Sep, [facility] [place] [facility] [address] [id number], [place] [address]- 8237 Jan, [facility] [place] [facility] [address] [id number] [place] [address]- 2715 Nov, [facility] [place] [facility] [address] [facility] [id number], [place] [address]- 4403 Oct, [facility] [place] [facility] [address] [facility] [id number] [place] [address]- 6087 Jul, [facility] [place] [facility] [address] [id number] [place] [address]- 0125 Jul, [facility] [place] [facility] [address] [facility] [id number] [place] [address], [place] [address]- 1873 Jul, [facility] [place] [facility] [address] [facility] [id number] [place] [address]- 5980 Jul, [facility] [address] [facility] [id number], [place] [address]- 9922 Oct, [facility] [place] [facility] [address] [facility] [id number], [place] [address]- 9101 Dec, [facility] [place] [facility] [address] [facility] [id number], [place] [address]- 5332 Jul, [facility] [place] [facility] [address] [facility] [id number], [place] [address]- 7273 May, [facility] [place] [facility] [address] [facility] [id number], [place] [address]- 1240 Mar, [facility] [place] [facility] [address] [facility] [id number], [place] [address]- 9589 Sep, [facility] [place] [facility] [address] [facility] [id number], [place] [address]- 9734 Sep, [facility] [place] [facility] [address] [facility] [id number], [place] [address]- 9340 30 Jul, 2009 [facility] [place] [facility] [address] [facility] [id number], [place] [address]- 6302 Jul, [facility] [place] [facility] [address] [facility] [id number] [place] [address]- 2438 February, [facility] [address] [facility] [id number], [place] [address]- 4411 Jan, IMMUNIZATIONS Vaccine Route Administration Date Status TDAP (BOOSTRIX) IM Intramuscular March 04, 2018 Administered SOCIAL HISTORY Never Assessed REASON FOR VISIT OB f/u 2wk----DBennettRN PLAN OF CARE Activity Details Follow Up 2 Weeks Reason: VITAL SIGNS Height 62.5 in 2018-03-04 Weight 133 lbs 2018-03-04 Temperature 97.8 degrees Fahrenheit 2018-03-04 Heart Rate 70 bpm 2018-03-04 Respiratory Rate 20 2018-03-04 BMI 23.938 kg/m2 2018-03-04 Blood pressure systolic 104 mmHg 2018-03-04 Blood pressure diastolic 70 mmHg 2018-03-04 MEDICATIONS Medication Instructions Dosage Frequency Start Date End Date Duration Status TriNessa (28) 0.18/0.215/0.25 MG-35 MCG Orally Once a day 1 tablet 24h May, 28 day(s) Not-Taking Tamiflu 75 MG Orally Twice a day 1 capsule 12h Dec, 5 day(s) Not-Taking TriNessa Lo 0.18/0.215/0.25 MG-25 MCG Orally Once a day 1 tablet 24h May 30 day(s) Not-Taking Vitamins (Dis) Active RESULTS Name Result Date Reference Range UA OB DIP (IN HOUSE) 2018-03-04 Glucose negative Protein trace PROCEDURES Procedure Date Ordered Result Body Site TDAP (BOOSTRIX) March 04, 2018 URINE-NO MICRO March 04, 2018 SINGLE IMMUNIZATION ADMIN March 04, 2018 INSTRUCTIONS MEDICATIONS ADMINISTERED No Known Medications [...]
--- OUTSIDE RECORDS SUMMARY | 2018-06-27 18:45 | XMS REPORT ---
Author Author TESSIE RALPH [facility] Address [address] [place] [address] Care Team Providers Care Rent And Miscellaneous Remittance Clerk Name Role Phone TESSIE RALPH Unavailable PROBLEMS Type Condition ICD9-CM Code CYM69-LV Code Onset Dates Condition Status SNOMED Code Problem Missed period N92.6 Active [id number] ALLERGIES No Information ENCOUNTERS Encounter Location Date Diagnosis [place] [address] [address] May, [place] [address] [address]- [address] Apr, [place] [address] [address] Mar, care, first , third trimester Z34.03 [place] [address] 38[address]- 0684 Mar, 35 weeks gestation of Z3A.35 [place] [address] [place] [id number] [address] 38381- 9962 Mar, Third trimester Z34.93 [place] [address] [address]- [address] February, in multigravida Z34.80 and Encounter for immunization Z23 [place] [address] [address]- [address] February, Normal in multigravida Z34.80 [place] [address] [place] [id number] [place] [address] 21267- 3031 Jan, care, first , third trimester Z34.03 [place] [address] [place] [address] Dec, care, first , third trimester Z34.03 [facility] [address] [place] [id number] [place] [address] 33403- 4525 28 Nov, 2017 Encounter for supervision of normal first in second trimester Z34.02 [facility] [address] [place] [id number] [place] [address] 93959- 5546 Nov, [facility] [address] [place] [id number] [place] [address] 07487- 6375 Oct, Normal in multigravida Z34.80 [place] [address] [place] [id number] [place] [address] 24773- 3972 Oct, [facility] [address] [place] [id number] [place] [address] 22872- 2675 Oct, [facility] [address] [place] [id number] [address] 12825- 7701 Oct, [facility] [id number] [place] [address] 71533 -9698 Oct, Missed period N92.6 [facility] [address] [place] [id number] [place] [address] 40733 -6814 May, Acute suppurative otitis media of left ear without spontaneous rupture of tympanic membrane, recurrence not specified H66.002 [facility] [address] [place] [id number] [place] [address] 98763- 0168 May, in first trimester Z33.2 [facility] [address] [place] [id number] [place] [address] 43252- 5018 May, [facility] [address] [place] [id number] [address] 76062- 1113 Apr, 9 weeks gestation of Z3A.09 and Normal in multigravida Z34.80 [facility] [address] [place] [id number] [place] [address] 14481- 9375 Apr, [facility] [id number] [place] [address] 10394- 1611 Apr, [facility] [address] [place] [id number] [address] 17487 -7039 Apr, Positive test Z32.01 and Otalgia of right ear H92.01 [facility] [address] [place] [id number] [place] [address] 04372 -6791 Mar, Abrasion, foot, right, initial encounter S90.811A [facility] [address] [place] [id number] [place] [address] 46746- 5645 February, [facility] [address] 02936- 5192 Jan, [facility] [address] [place] [id number] [address] 00882- 6185 Nov, [facility] [address] [place] [id number] [place] [address] 01102 -8383 Oct, Sore throat J02.9 and Strep throat J02.0 [facility] [address] [place] [id number] [place] [address] 11746- 9732 Sep, [facility] [address] [place] [id number] [place] [address] 79785- 8192 Aug, [facility] [address] [place] [id number] [place] [address] 55245- 7442 Aug, [facility] [address] [place] [id number] [place] [address] 65624- 8227 Jun, [facility] [address] [place] [id number] [place] [address] 89293- 6071 May, [facility] [address] [place] [id number] [address] 75298- 2660 May, Routine follow-up Z39.2 [facility] [address] [place] [id number] [address] 55184 -8985 Apr, Right acute otitis media H66.91 [place] [address] [address] Apr, [place] [address] [address] 9[address] Apr, care, first , third trimester Z34.03 and 39 weeks gestation of Z3A.39 [place] [address] [address] 77232- 4008 Mar, care, first , third trimester Z34.03 and 38 weeks gestation of Z3A.38 [place] [address] [place] [address] 06847- 3569 Mar, [place] [address] [address]- 9927 Mar, care, first , third trimester Z34.03 and 36 weeks gestation of Z3A.36 [place] [address] [address]- 0[address] Mar, [place] [address] [place] [address] 02224- 7717 Mar, [place] [address], [place] [address]- [address]86 Mar, [place] [address] [place] [address] Mar, screening for streptococcus B Z36 ; care , first , third trimester Z34.03 ; Breech presentation, not applicable or unspecified fetus O32.1XX0 and 35 weeks gestation of Z3A.35 [place] [address] [address]- 8657 Mar, care, first , third trimester Z34.03 ; 34 weeks gestation of Z3A.34 and Breech presentation, not applicable or unspecified fetus O32.1XX0 [place] [address] [address] 81741- 5129 February, care, first , third trimester Z34.03 ; 32 weeks gestation of Z3A.32 ; Syncope, unspecified syncope type R55 ; Poor appetite R63.0 ; Acute midline low back pain without sciatica M54.5 and Encounter for immunization Z23 [place] [id number] [place] [address] 59692- 4955 February, [place] [address] [place] [id number] [address] 19638- 7082 February, [place] [id number] [place] [address] 91627- 4262 February, care, first , third trimester Z34.03 and 30 weeks gestation of Z3A.30 [place] [id number] [address] 68297- 2674 Jan, Encounter for supervision of normal first in second trimester Z34.02 ; Diabetes mellitus screening Z13.1 ; Screening, iron deficiency anemia Z13.0 and 26 weeks gestation of Z3A.26 [place] [id number] [place] [address] 78778- 5344 Jan, [place] [address] [place] [id number] [address] 79042- 8630 31 Dec, 2015 [place] [id number] [address] 91939- 4307 Dec, [place] [id number] [address] 78581- 1370 Dec, Encounter for supervision of normal first in second trimester Z34.02 and 22 weeks gestation of Z3A.22 [place] [id number] [address] 34784- 8261 Dec, [place] [id number] [address] 84527- 2687 Dec, Acute upper respiratory infection, unspecified J06.9 and Other viral agents as the cause of diseases classified elsewhere B97.89 [facility] [address] [place] [address] 51585- 5435 12 Nov, 2015 Encounter for supervision of normal first in second trimester Z34.02 ; Vaginal candidiasis B37.3 and 18 weeks gestation of Z3A.18 [facility] [address] [place] [id number] [address] 73351- 1445 12 Nov, 2015 [place] [address] 71979- 6406 Oct, [place] [address] 06711- 3799 Oct, [place] [address] 42494- 8654 Oct, Encounter for supervision of normal first in second trimester Z34.02 and 15 weeks gestation of Z3A.15 [place] [address] [place] [id number] [address] 81458- 8321 Sep, Encounter for supervision of normal first in first trimester Z34.01 ; Z33.1 and 11 weeks gestation of Z3A.11 [place] [address] [place] [id number] [address] 23483- 0035 22 Sep, 2015 [id number] [place] [address] Sep [facility] [address] [place] [id number] [address] 30527 -7689 08 Sep, 2015 Encounter for test, result positive Z32.01 [facility] [address] 21583- 8374 17 Aug, 2015 Environmental allergies Z91.09 and Sore throat J02.9 [facility] [address] [place] [id number] [address] 06347- 0534 13 Jul, 2015 Physical exam Z00.00 [facility] [address] [place] [id number] [place] [address] [id number] May, Dental examination V72.2 [facility] [address] [id number] [place] [address]- 2544 14 Jan, 2015 [facility] [address] [id number] [place] [address]- 7466 Jan, [facility] [address] [id number], [place] [address]- 4376 Dec, [facility] [address] [id number], [place] [address]- 5774 Dec, [facility] [address] [id number] [place] [address]- 3348 Sep, [facility] [address] [id number] [place] 4991 Sep, [facility] [address] [facility] [id number] [place] [address] Aug, [facility] [address] [id number], [place] [address]- 1323 Aug, [facility] [address] [id number] [place] 0771 Jan, [facility] [address] [facility] [id number], [place] [address]- 3199 Jan, [facility] [address] [id number], [place] [address]- 5737 Sep, [facility] [address] [id number], [place] [address]- 1702 Sep, [facility] [place] [facility] [address] [id number], [place] [address]- 7336 Sep, [facility] [place] [facility] [address] [facility] [id number], [place] [address]- 3816 Sep, [facility] [address] [id number], [place] [address]- 0629 30 Jan, 2013 [facility] [address] [id number] [place] [address]- 5182 Nov, [facility] [place] [facility] [address] [id number] [place] [address]- 9576 Oct, [facility] [place] [facility] [address] [id number] [place] [address]- 9012 Jul, [facility] [place] [facility] [address] [id number] [place] [address], [place] [address]- 2639 Jul, [facility] [address] [id number] [place] [address]- 3345 Jul, [facility] [place] [facility] [address] [id number] [place] [address]- 2323 Jul, [facility] [address] [id number] [place] [address]- 4927 Oct, [facility] [address] [id number] [place] [address]- 4059 Dec, [facility] [place] [facility] [address] [id number] [place] [address]- 0905 Jul, [facility] [place] [facility] [address] [id number] [place] [address]- 2414 May, [facility] [place] [facility] [address] [id number] [place] [address]- 3234 Mar, [facility] [place] [facility] [address] [id number], [place] [address]- 1375 Sep, [facility] [place] [facility] [address] [id number] [place] [address]- 4063 Sep, [facility] [place] [facility] [address] [id number] [place] [address]- 8757 30 Jul, 2009 [facility] [place] [facility] [address] [id number] [place] [address]- 8055 Jul, [facility] [place] [facility] [address] [id number] [place] [address]- 1286 February, [facility] [address] [facility] [id number] [place] [address]- 2092 Jan, IMMUNIZATIONS No Known Immunizations SOCIAL HISTORY Never Assessed REASON FOR VISIT OB f/u 4 wk-- vincent agudelo, headache, leg swelling x couple a days PLAN OF CARE Activity Details Follow Up 2 Weeks Reason: VITAL SIGNS Height 62.5 in 2018-02-04 Weight 131.0 lbs 2018-02-04 BMI 23.578 kg/m2 2018-02-04 Blood pressure systolic 120 mmHg 2018-02-04 Blood pressure diastolic 76 mmHg 2018-02-04 MEDICATIONS Medication Instructions Dosage Frequency Start Date End Date Duration Status TriNessa Lo 0.18/0.215/0.25 MG-25 MCG Orally Once a day 1 tablet 24h May 30 day(s) Not-Taking Tamiflu 75 MG Orally Twice a day 1 capsule 12h Dec, 5 day(s) Not-Taking TriNessa (28) 0.18/0.215/0.25 MG-35 MCG Orally Once a day 1 tablet 24h May, 28 day(s) Not-Taking Vitamins (Dis) Active RESULTS No Results PROCEDURES Procedure Date Ordered Result Body Site URINE-NO MICRO February 04, 2018 GLUCOSE TEST February 04, 2018 COMPLETE CBC W/AUTO DIFF WBC February 04, 2018 INSTRUCTIONS MEDICATIONS ADMINISTERED No Known [...]
--- OUTSIDE RECORDS SUMMARY | 2018-06-27 18:45 | XMS REPORT ---
Author Author TESSIE RALPH [facility] Address [address] [place] [address] Care Team Providers Care Underwriting Technician Name Role Phone TESSIE RALPH Unavailable PROBLEMS Type Condition ICD9-CM Code LAV81-VV Code Onset Dates Condition Status SNOMED Code Problem Missed period N92.6 Active [id number] ALLERGIES Substance Reaction Event Type Date Status peaches hives Non Drug Allergy Mar, Active ENCOUNTERS Encounter Location Date Diagnosis [place] [address] [address] May, Encounter for routine follow-up Z39.2 and Encounter for Depo-Provera contraception Z30.42 [place] [address] [address] Apr, [place] [address] [address] Mar, care, first , third trimester Z34.03 [place] [address] [place] [id number] [place] [address]53- 8906 Mar, 35 weeks gestation of Z3A.35 [place] [address] [place] [id number] [place] [address] 47019- 9467 Mar, Third trimester Z34.93 [place] [address] [place] [id number] [place] [address] 12654- 9533 February, in multigravida Z34.80 and Encounter for immunization Z23 [place] [address] [place] [id number] [place] [address] 00319- 6779 February, Normal in multigravida Z34.80 [place] [address] [address] Jan, care, first , third trimester Z34.03 [facility] [address] [place] [id number] [place] [address] 10553- 1859 Dec, care, first , third trimester Z34.03 [facility] [id number] [place] [address] 12466- 1466 Nov, Encounter for supervision of normal first in second trimester Z34.02 [facility] [address] [place] [id number] [place] [address] 81578- 8057 Nov, [place] [address] [place] [id number] [place] [address] 85934- 0336 Oct, Normal in multigravida Z34.80 [place] [address] [place] [id number] [place] [address] 72960- 0574 Oct, [place] [address] [place] [id number] [place] [address] 02659- 3654 Oct, [facility] [address] [place] [id number] [place] [address] 97506- 8791 Oct, [facility] [address] [place] [id number] [place] [address] 09645 -6932 Oct, Missed period N92.6 [facility] [id number] [place] [address] 45843 -8390 May, Acute suppurative otitis media of left ear without spontaneous rupture of tympanic membrane, recurrence not specified H66.002 [facility] [address] [address] May, in first trimester Z33.2 [facility] [address] [place] [id number] [place] [address] 08693- 8402 May, [facility] [address] [address] Apr, 9 weeks gestation of Z3A.09 and Normal in multigravida Z34.80 [facility] [address] [place] [id number] [place] [address] 54232- 8899 Apr, [facility] [address] [place] [id number] [place] [address] 94926- 5225 Apr, [facility] [address] [place] [id number] [place] [address] 29581 -5230 Apr, Positive test Z32.01 and Otalgia of right ear H92.01 [facility] [address] [place] [id number] [place] [address] 32048 -8980 Mar, Abrasion, foot, right, initial encounter S90.811A [facility] [address] [place] [id number] [place] [address] 67567- 9421 February, [facility] [address] [place] [id number] [place] [address] 10135- 5266 Jan, [facility] [address] [place] [id number] [place] [address] 52924- 5239 Nov, [facility] [address] [place] [id number] [place] [address] 17093 -9098 Oct, Sore throat J02.9 and Strep throat J02.0 [facility] [address] [place] [id number] [place] [address] 11623- 9418 Sep, [facility] [address] [place] [id number] [place] [address] 27961- 9765 Aug, [facility] [address] [place] [id number] [place] [address] 72587- 0167 Aug, [facility] [address] [place] [id number] [place] [address] 72619- 6664 07 Jun, 2016 [facility] [address] [place] [id number] [place] [address] 15763- 0345 May, [facility] [address] [address] May, Routine follow-up Z39.2 [facility] [address] [address] Apr, Right acute otitis media H66.91 [facility] [address] [address] Apr, care, first , third trimester Z34.03 and 39 weeks gestation of Z3A.39 [place] [address], [place] [address] Apr, [place] [address] [place] [id number] [place] [address] 59301- 3653 Mar, care, first , third trimester Z34.03 and 38 weeks gestation of Z3A.38 [place] [address], [place] [address] Mar, [place] [address] [place] [id number] [place] [address] 94348- 5632 Mar, care, first , third trimester Z34.03 and 36 weeks gestation of Z3A.36 [place] [address] [place] [id number] [place] [address] 54851- 9001 Mar, [place] [address] [address] 27[address] Mar, [place] [address] [address]- [address] Mar, [place] [address] [place] [id number] [address] Mar, screening for streptococcus B Z36 ; care , first , third trimester Z34.03 ; Breech presentation, not applicable or unspecified fetus O32.1XX0 and 35 weeks gestation of Z3A.35 [place] [address] [address] Mar, care, first , third trimester Z34.03 ; 34 weeks gestation of Z3A.34 and Breech presentation, not applicable or unspecified fetus O32.1XX0 [place] [address] [place] [id number] [place] [address] 38084- 3892 February, care, first , third trimester Z34.03 ; 32 weeks gestation of Z3A.32 ; Syncope, unspecified syncope type R55 ; Poor appetite R63.0 ; Acute midline low back pain without sciatica M54.5 and Encounter for immunization Z23 [place] [address] [place] [id number] [place] [address] 78493- 8681 February, [place] [address] [address]- [address] February, [place] [address] [place] [id number] [place] [address] 39235- 1639 February, care, first , third trimester Z34.03 and 30 weeks gestation of Z3A.30 [place] [address] [place] [id number] [place] [address] 67014- 3608 08 Jan, 2016 Encounter for supervision of normal first in second trimester Z34.02 ; Diabetes mellitus screening Z13.1 ; Screening, iron deficiency anemia Z13.0 and 26 weeks gestation of Z3A.26 [place] [address] [place] [id number] [place] [address] 28804- 7010 Jan, [place] [address] [place] [id number] [place] [address] 56170- 4450 Dec, [place] [address] [place] [id number] [place] [address] 24553- 4953 Dec, [place] [address] [place] [id number] [place] [address] 97158- 0748 Dec, Encounter for supervision of normal first in second trimester Z34.02 and 22 weeks gestation of Z3A.22 [place] [address] [place] [id number] [place] [address] 26806- 0792 Dec, [place] [address] [address] Dec, Acute upper respiratory infection, unspecified J06.9 and Other viral agents as the cause of diseases classified elsewhere B97.89 [place] [id number] [place] [address] 26988- 7470 12 Nov, 2015 Encounter for supervision of normal first in second trimester Z34.02 ; Vaginal candidiasis B37.3 and 18 weeks gestation of Z3A.18 [place] [address] [place] [id number] [place] [address] 68427- 9764 Nov, [address] [address]- [address]229 Oct, [place] [id number] [place] [address] 30278- 8891 Oct, Encounter for supervision of normal first in second trimester Z34.02 and 15 weeks gestation of Z3A.15 [place] [address] [place] [id number] [place] [address] 73697- 2225 Oct, [place] [id number] [place] [address] 45475- 6700 Sep, Encounter for supervision of normal first in first trimester Z34.01 ; Z33.1 and 11 weeks gestation of Z3A.[address] [place] [address] 14313- 7472 Sep, [facility] [id number] [place] [address] Sep [facility] [address] [place] [id number] [place] [address] 57412 -7011 08 Sep, 2015 Encounter for test, result positive Z32.01 [place] [id number] [place] [address] 09766- 2753 17 Aug, 2015 Environmental allergies Z91.09 and Sore throat J02.9 [place] [id number] [place] [address] [place] [address] Jul, Physical exam Z00.00 [facility] [address] [id number] [id number] May, Dental examination V72.2 [facility] [address] [id number] [place] [address]- [address] 14 Jan, 2015 [facility] [address] [id number] [place] [address]- 7126 Jan, [facility] [address] [id number] [place] [address]- 2624 Dec, [facility] [address] [id number] [place] [address]- 0574 Dec, [facility] [address] [facility] [id number] [place] [address] Sep, [facility] [address] [address]- 4184 Sep, [facility] [address] [id number] [place] [address]- 6486 Aug, [facility] [address] [id number] [place] [address]- 9709 Aug, [facility] [address] [place] [id number] [address]- 2872 Jan, [facility] [address] [id number] [place] [address]- 1272 Jan, [facility] [address] [id number] [address]- 7032 Sep, [facility] [address] [id number] [place] [address]- 9169 Sep, [facility] [address] [facility] [id number] [place] [address]- 4186 Sep, [facility] [address] [facility] [id number], [place] [address]- 7103 Sep, [facility] [place] [facility] [address] [id number] [place] [address]- 6485 Jan, [facility] [place] [facility] [address] [id number] [place] [address]- 9356 Nov, [facility] [place] [facility] [address] [id number] [place] [address] 2546 Oct, [facility] [place] [facility] [address] [id number] [place] [address]- 3226 Jul, [facility] [place] [facility] [address] [id number] [place] [address]- 0332 Jul, [facility] [place] [facility] [address] [id number] [place] [address]- 9086 Jul, [facility] [place] [facility] [address] [id number] [place] [address]- 1166 Jul, [facility] [place] [facility] [address] [id number] [place] [address]- 5882 Oct, [facility] [place] [facility] [address] [id number] [place] [address]- 4512 Dec, [facility] [place] [facility] [address] [id number] [place] [address]- 2256 Jul, [facility] [place] [facility] [address] [id number], [place] [address]- 2546 May, [facility] [place] [facility] [address] [id number], [place] [address]- 2546 Mar, [facility] [place] [facility] [address] [id number] [place] [address]- 2546 Sep, [facility] [place] [facility] [address] [id number], [place] [address]- 2546 Sep, [facility] [place] [facility] [address] [id number] [place] [address]- 2546 Jul, [facility] [place] [facility] [address] [facility] [id number] [address]- 7969 Jul, [facility] [address] [facility] [id number], [place] [address]- 0908 February, [facility] [address] [facility] [id number], [place] [address]- 9511 Jan, IMMUNIZATIONS No Known Immunizations SOCIAL HISTORY Never Assessed REASON FOR VISIT OB f/u 2wk-twoodenMA PLAN OF CARE Activity Details Follow Up 2 Weeks Reason: VITAL SIGNS Height 62.5 in 2018-03-18 Weight 135.7 lbs 2018-03-18 Temperature 98.2 degrees Fahrenheit 2018-03-18 Heart Rate 68 bpm 2018-03-18 Respiratory Rate 18 2018-03-18 BMI 24.424 kg/m2 2018-03-18 Blood pressure systolic 100 mmHg 2018-03-18 Blood pressure diastolic 60 mmHg 2018-03-18 MEDICATIONS Medication Instructions Dosage Frequency Start Date End Date Duration Status TriNessa Lo 0.18/0.215/0.25 MG-25 MCG Orally Once a day 1 tablet 24h May 30 day(s) Not-Taking Tamiflu 75 MG Orally Twice a day 1 capsule 12h Dec, 5 day(s) Not-Taking TriNessa (28) 0.18/0.215/0.25 MG-35 MCG Orally Once a day 1 tablet 24h May, 28 day(s) Not-Taking Vitamins (Dis) Active RESULTS Name Result Date Reference Range UA OB DIP (IN HOUSE) 2018-03-18 Glucose negative Protein trace PROCEDURES Procedure Date Ordered Result Body Site URINE-NO MICRO March 18, 2018 INSTRUCTIONS MEDICATIONS ADMINISTERED No Known [...]
--- OUTSIDE RECORDS SUMMARY | 2018-06-27 18:46 | XMS REPORT ---
Author Author KARUNA NIRMAL [facility] Address [address] [place] [address] Care Team Providers Care [facility] Practitioner Name Role Phone KARUNATOMERNIRMAL Unavailable PROBLEMS Type Condition ICD9-CM Code [id number] Code Onset Dates Condition Status SNOMED Code Problem Missed period N92.6 Active [id number] ALLERGIES No Information ENCOUNTERS Encounter Location Date Diagnosis [place] [id number] [place] [address] 00608- 4081 February, [place] [id number] [place] [address] 18252- 8977 February, Normal in multigravida Z34.80 [facility] [id number] [place] [address] 56647- 6907 Jan, care, first , third trimester Z34.03 [place] [id number] [place] [address] 30345- 6872 Dec, care, first , third trimester Z34.03 [place] [id number] [place] [address] 48124- 3157 Nov, Encounter for supervision of normal first in second trimester Z34.02 [facility] [id number] [place] [address] 75619- 1803 Nov, [place] [id number] [place] [address] 01033- 2328 Oct, Normal in multigravida Z34.80 [facility] [id number] [place] [address] 26101- 8605 Oct, [facility] [id number] [place] [address] 61696- 5150 Oct, [place] [id number] [place] [address] 54636- 6724 Oct, [facility] [place] [id number] [place] [address] 58838 -6380 Oct, Missed period N92.6 [facility] [place] [id number] [place] [address] 72426 -2801 May, Acute suppurative otitis media of left ear without spontaneous rupture of tympanic membrane, recurrence not specified H66.002 [place] [id number] [place] [address] 48314- 2867 May, in first trimester Z33.2 [place] [address] 93554- 7779 May, [place] [address] 13020- 8363 Apr, 9 weeks gestation of Z3A.09 and Normal in multigravida Z34.80 [place] [id number] [place] [address] 15661- 7091 Apr, [place] [id number] [place] [address] 49191- 8212 Apr, [facility] [place] [id number] [place] [address] 67848 -3486 Apr, Positive test Z32.01 and Otalgia of right ear H92.01 [facility] [place] [id number] [place] [address] 25071 -3238 Mar, Abrasion, foot, right, initial encounter S90.811A [place] [id number] [place] [address] 22554- 2866 February, [place] [id number] [place] [address] 29979- 6836 Jan, [place] [address] [address] 4098 Nov, [facility] [address] [place] [address] Oct, Sore throat J02.9 and Strep throat J02.0 [facility] [address] [address] 0811 Sep, [facility] [id number] [place] [address] 10983- 3898 Aug, [facility] [address] [address] 3260 Aug, [facility] [id number] [place] [address] 06647- 6592 Jun, [facility] [id number] [place] [address] 05017- 5265 May, [facility] [id number] [place] [address] 24246- 8763 May, Routine follow-up Z39.2 [facility] [id number] [place] [address] 47532 -7476 Apr, Right acute otitis media H66.91 [facility] [address] [address]- 8730 Apr, [facility] [address], [place] [address]- 7341 Apr, care, first , third trimester Z34.03 and 39 weeks gestation of Z3A.39 [facility] [address], [place] [address]- 1641 Mar, care, first , third trimester Z34.03 and 38 weeks gestation of Z3A.38 [facility] [address], [place] [address]- 3209 Mar, [facility] [id number] [address]- 5668 17 Mar, 2016 care, first , third trimester Z34.03 and 36 weeks gestation of Z3A.36 [place] [id number] [place] [address] 43762- 9629 Mar, [place] [id number] [place] [address] 05525- 5046 Mar, [place] [id number] [place] [address] 47954- 9068 Mar, [place] [id number] [place] [address] 29595- 1815 Mar, screening for streptococcus B Z36 ; care , first , third trimester Z34.03 ; Breech presentation, not applicable or unspecified fetus O32.1XX0 and 35 weeks gestation of Z3A.35 [place] [id number] [place] [address] 74793- 2944 Mar, care, first , third trimester Z34.03 ; 34 weeks gestation of Z3A.34 and Breech presentation, not applicable or unspecified fetus O32.1XX0 [place] [id number] [place] [address] 84726- 2209 February, care, first , third trimester Z34.03 ; 32 weeks gestation of Z3A.32 ; Syncope, unspecified syncope type R55 ; Poor appetite R63.0 ; Acute midline low back pain without sciatica M54.5 and Encounter for immunization Z23 [place] [id number] [place] [address] 93727- 3617 February, [place] [id number] [place] [address] 44274- 1543 February, [place] [id number] [place] [address] 03814- 7861 February, care, first , third trimester Z34.03 and 30 weeks gestation of Z3A.30 [place] [address], [place] [address]- 8029 08 Jan, 2016 Encounter for supervision of normal first in second trimester Z34.02 ; Diabetes mellitus screening Z13.1 ; Screening, iron deficiency anemia Z13.0 and 26 weeks gestation of Z3A.26 [place] [address], [place] [address]- 9319 Jan, [place] [id number] [place] [address] 24660- 0895 31 Dec, 2015 [place] [id number] [place] [address] 40067- 5065 Dec, [place] [id number] [place] [address] 76125- 0421 Dec, Encounter for supervision of normal first in second trimester Z34.02 and 22 weeks gestation of Z3A.22 [place] [id number] [place] [address] 38938- 2659 Dec, [place] [id number] [place] [address] 89690- 9815 Dec, Acute upper respiratory infection, unspecified J06.9 and Other viral agents as the cause of diseases classified elsewhere B97.89 [address], [place] [address]- 1012 12 Nov, 2015 Encounter for supervision of normal first in second trimester Z34.02 ; Vaginal candidiasis B37.3 and 18 weeks gestation of Z3A.18 [place] [address], [place] [address]- 5571 Nov, [place] [id number] [place] [address] 53988- 7813 Oct, [place] [address], [place] [address]- 7066 Oct, [place] [id number] [place] [address] 02115- 3498 Oct, Encounter for supervision of normal first in second trimester Z34.02 and 15 weeks gestation of Z3A.15 [facility] [id number] [place] [address] 66619- 6910 Sep, Encounter for supervision of normal first in first trimester Z34.01 ; Z33.1 and 11 weeks gestation of Z3A.11 [facility] [id number] [place] [address] 53236- 2831 Sep, [facility] [id number] [place] [address] Sep [facility] [address] [address]9169 Sep, Encounter for test, result positive Z32.01 [facility] [id number] [place] [address] 23229- 1868 17 Aug, 2015 Environmental allergies Z91.09 and Sore throat J02.9 [facility] [id number] [place] [address] 39325- 7929 Jul, Physical exam Z00.00 [facility] [address] [id number] May, Dental examination V72.2 [facility] [id number] [place] [address] 04776- 4314 Jan, [facility] [id number] [place] [address] 53626- 5178 Jan, [facility] [id number] [place] [address] 72649- 5938 Dec, [facility] [address] 71499- 2123 Dec, [facility] [id number] [place] [address] 02891- 6929 Sep, [facility] [id number] [place] [address] 40290- 9936 Sep, [facility] [place] [facility] [address] [id number] [place] [address]- 0185 Aug, [facility] [place] [facility] [address] [id number] [place] [address]- 9619 Aug, [facility] [place] [facility] [address] [id number] [place] [address]- 5599 Jan, [facility] [place] [facility] [address] [id number] [place] [address]- 7565 Jan, [facility] [place] [facility] [address] [id number] [place] [address] Sep, [facility] [place] [facility] [address] [id number] [place] [address]- 2997 Sep, [facility] [place] [facility] [address] [facility] [id number] [place] [address]- 6525 Sep, [facility] [place] [facility] [address] [id number] [address]- 2309 Sep, [facility] [place] [facility] [address] [id number] [place] [address]- 3724 Jan, [facility] [place] [facility] [address] [facility] [id number], [place] [address]- 0980 Nov, [facility] [place] [facility] [address] [id number], [place] [address]- 6598 Oct, [facility] [place] [facility] [address] [id number], [place] [address]- 9658 Jul, [facility] [place] [facility] [address] [id number] [place] [address]- 3419 Jul, [facility] [place] [facility] [address] [id number], [place] [address]- 4231 Jul, [facility] [place] [facility] [address] [id number], [place] [address]- 6267 Jul, [facility] [place] [facility] [id number], [place] [address]- 2546 17 Oct, 2011 [facility] [address], [place] [address]- 1876 Dec, [facility] [address], [place] [address]- 4226 Jul, [facility] [address], [place] [address]- 2546 May, [facility] [address], [place] [address]- 2546 Mar, [facility] [address], [place] [address]- 0496 Sep, [facility] [address], [place] [address]- 2546 Sep, [facility] [address], [place] [address]- 6626 Jul, [facility] [address], [place] [address]- 7214 Jul, [facility] [address], [place] [address]- 3816 February, [facility] [id number], [place] [address]- 0946 Jan, IMMUNIZATIONS No Known Immunizations SOCIAL HISTORY [...]
--- OUTSIDE RECORDS SUMMARY | 2018-06-27 18:46 | XMS REPORT ---
Author Author TESSIE RALPH [facility] Address [address] [place] [address] Care Team Providers Care Operations Team Leader Name Role Phone TESSIE RALPH Unavailable PROBLEMS Type Condition ICD9-CM Code XYW66-RI Code Onset Dates Condition Status SNOMED Code Problem Missed period N92.6 Active [id number] ALLERGIES Substance Reaction Event Type Date Status peaches hives Non Drug Allergy Dec, Active ENCOUNTERS Encounter Location Date Diagnosis [place] [address] [address] May, [place] [address] [address] Apr, [place] [address] [address] Mar, care, first , third trimester Z34.03 [place] [address] [address] Mar, 35 weeks gestation of Z3A.35 [place] [address] [place] [id number] [place] [address]38- 4191 Mar, Third trimester Z34.93 [place] [address] [address] February, in multigravida Z34.80 and Encounter for immunization Z23 [place] [address] [address] February, Normal in multigravida Z34.80 [place] [address] [place] [id number] [place] [address] 66911- 7987 Jan, care, first , third trimester Z34.03 [facility] [address] [address] Dec, care, first , third trimester Z34.03 [facility] [address] [place] [id number] [place] [address] 71187- 3753 Nov, Encounter for supervision of normal first in second trimester Z34.02 [facility] [address] [place] [id number] [place] [address] 68681- 6547 Nov, [facility] [address] [place] [id number] [place] [address] 87767- 6903 Oct, Normal in multigravida Z34.80 [place] [address] [place] [id number] [place] [address] 39396- 9434 Oct, [facility] [address] [place] [id number] [place] [address] 84006- 0481 Oct, [facility] [address] [place] [id number] [place] [address] 10556- 7406 Oct, [facility] [address] [place] [id number] [place] [address]55 -5749 Oct, Missed period N92.[address] [facility] [address] [place] [id number] [place] [address] 34594 -8960 May, Acute suppurative otitis media of left ear without spontaneous rupture of tympanic membrane, recurrence not specified H66.002 [facility] [address], [place] [address] May, in first trimester Z33.2 [facility] [address] [place] [id number] [place] [address] 72480- 6556 May, [facility] [address] [place] [id number] [place] [address] 98775- 8036 Apr, 9 weeks gestation of Z3A.09 and Normal in multigravida Z34.80 [place] [address] [place] [id number] [address] Apr, [facility] [address] [place] [id number] [place] [address] 88635- 8856 Apr, [facility] [address] [place] [id number] [place] [address] 28263 -0381 Apr, Positive test Z32.01 and Otalgia of right ear H92.[address] [facility] [address] [place] [id number] [place] [address] 53316 -3996 Mar, Abrasion, foot, right, initial encounter S90.811A [place] [address] [address]- [address]31 February, [facility] [address] [place] [id number] [place] [address] 74094- 4806 Jan, [facility] [address] [place] [id number] [place] [address] 53977- 0556 Nov, [facility] [address] [place] [id number] [place] [address] 31972 -5838 Oct, Sore throat J02.9 and Strep throat J02.0 [facility] [address] [place] [id number] [place] [address] 05166- 5817 Sep, [facility] [address] [place] [id number] [place] [address] 47004- 5641 Aug, [facility] [address] [place] [id number] [place] [address] 72219- 5170 Aug, [facility] [address] [place] [id number] [place] [address] 29305- 9800 Jun, [facility] [address] [place] [id number] [place] [address] 25716- 1298 May, [facility] [id number] [place] [address] 19523- 2569 May, Routine follow-up Z39.2 [facility] [address] [facility] [id number] [address] Apr, Right acute otitis media H66.91 [facility] [address], [place] [address] 8598 Apr, [facility] [address] [place] [id number] [address] 0[address] Apr, care, first , third trimester Z34.03 and 39 weeks gestation of Z3A.39 [facility] [address], [place] [address]81 30 Mar, 2016 care, first , third trimester Z34.03 and 38 weeks gestation of Z3A.38 [facility] [address], [place] [address]- 28[address] Mar, [place] [address] [address]- 1166 Mar, care, first , third trimester Z34.03 and 36 weeks gestation of Z3A.36 [place] [address], [place] [address]- 6611 Mar, [place] [address] [place] [id number], [place] [address]- 1303 Mar, [facility] [address] [place] [id number], [place] [address]- [address]272 Mar, [facility] [address] [place] [id number] [address] Mar, screening for streptococcus B Z36 ; care , first , third trimester Z34.03 ; Breech presentation, not applicable or unspecified fetus O32.1XX0 and 35 weeks gestation of Z3A.35 [facility] [address] [place] [id number], [place] [address] Mar, care, first , third trimester Z34.03 ; 34 weeks gestation of Z3A.34 and Breech presentation, not applicable or unspecified fetus O32.1XX0 [place] [address] [place] [address] 34696- 7495 February, care, first , third trimester Z34.03 ; 32 weeks gestation of Z3A.32 ; Syncope, unspecified syncope type R55 ; Poor appetite R63.0 ; Acute midline low back pain without sciatica M54.5 and Encounter for immunization Z23 [place] [address] [place] [id number] [place] [address] 03749- 3828 February, [place] [address] [place] [id number] [place] [address] 68786- 9297 February, [place] [address] [place] [id number] [place] [address] 26699- 4255 February, care, first , third trimester Z34.03 and 30 weeks gestation of Z3A.30 [place] [id number] [place] [address] 76974- 7998 Jan, Encounter for supervision of normal first in second trimester Z34.02 ; Diabetes mellitus screening Z13.1 ; Screening, iron deficiency anemia Z13.0 and 26 weeks gestation of Z3A.26 [place] [id number] [place] [address] 68850- 0242 Jan, [place] [address] [place] [id number] [place] [address] 85113- 7313 Dec, [place] [address] [place] [id number] [place] [address] 38171- 3908 Dec, [place] [address] [place] [id number] [place] [address] 35824- 3077 Dec, Encounter for supervision of normal first in second trimester Z34.02 and 22 weeks gestation of Z3A.22 [place] [address] [place] [id number] [place] [address] 10879- 8218 Dec, [place] [address] [place] [id number] [place] [address] 37786- 6406 Dec, Acute upper respiratory infection, unspecified J06.9 and Other viral agents as the cause of diseases classified elsewhere B97.89 [place] [address] [place] [id number] [place] [address] 39208- 6821 12 Nov, 2015 Encounter for supervision of normal first in second trimester Z34.02 ; Vaginal candidiasis B37.3 and 18 weeks gestation of Z3A.18 [place] [address] 82329- 6234 Nov, [place] [address] [address]- 5320 Oct, [place] [address] 91601- 5655 Oct, [place] [address] [place] [id number] [place] [address] 25696- 2882 Oct, Encounter for supervision of normal first in second trimester Z34.02 and 15 weeks gestation of Z3A.15 [place] [address] [place] [id number] [place] [address] 96998- 1809 Sep, Encounter for supervision of normal first in first trimester Z34.01 ; Z33.1 and 11 weeks gestation of Z3A.11 [place] [address] [place] [address] 57865- 7535 22 Sep, [address] [facility] [employer] [id number] [place] [address] [facility] [address] [place] [address] 63559 -9446 08 Sep, 2015 Encounter for test, result positive Z32.[address] [address]- [address]382 17 Aug, 2015 Environmental allergies Z91.09 and Sore throat J02.9 [place] [id number] [place] [address] 44925- 3475 13 Jul, 2015 Physical exam Z00.00 [facility] [place] [facility] [address] [id number] [id number] May, Dental examination V72.2 [facility] [place] [facility] [address] [id number] [place] [address] [address]80 14 Jan, 2015 [facility] [place] [facility] [address] [id number] [place] [address]- 2717 Jan, [facility] [place] [facility] [address] [id number] [place] [address] Dec, [facility] [place] [facility] [address] [id number] [place] [address]- 1511 Dec, [facility] [place] [facility] [address] [id number] [place] [address] Sep, [facility] [place] [facility] [address] [id number], [place] [address]- 1264 Sep, [facility] [address] [id number], [place] [address]- 9758 Aug, [facility] [place] [facility] [address] [id number], [place] [address]- 5827 Aug, [facility] [address] [facility] [id number], [place] [address]- 0443 Jan, [facility] [place] [facility] [address] [id number], [place] [address]- 1822 Jan, [facility] [place] [facility] [address] [id number] 8460 Sep, [facility] [place] [facility] [address] [id number] 6954 Sep, [facility] [place] [facility] [address] [id number], [place] [address]- 6025 Sep, [facility] [place] [facility] [address] [facility] [id number], [place] [address]- 6524 Sep, [facility] [place] [facility] [address] [id number], [place] [address]- 6005 Jan, [facility] [place] [facility] [address] [id number] [place] [address]- 0021 Nov, [facility] [place] [facility] [address] [facility] [id number], [place] [address]- 8623 Oct, [facility] [place] [facility] [address] [facility] [id number] [place] [address]- 0945 Jul, [facility] [place] [facility] [address] [id number] [place] [address]- 4219 Jul, [facility] [place] [facility] [address] [facility] [id number] [place] [address], [place] [address]- 4332 Jul, [facility] [place] [facility] [address] [facility] [id number] [place] [address]- 8840 Jul, [facility] [address] [facility] [id number], [place] [address]- 9521 Oct, [facility] [place] [facility] [address] [facility] [id number], [place] [address]- 2008 Dec, [facility] [place] [facility] [address] [facility] [id number], [place] [address]- 6805 Jul, [facility] [place] [facility] [address] [facility] [id number], [place] [address]- 6423 May, [facility] [place] [facility] [address] [facility] [id number], [place] [address]- 1253 Mar, [facility] [place] [facility] [address] [facility] [id number], [place] [address]- 4338 Sep, [facility] [place] [facility] [address] [facility] [id number], [place] [address]- 1389 Sep, [facility] [place] [facility] [address] [facility] [id number], [place] [address]- 8591 30 Jul, 2009 [facility] [place] [facility] [address] [facility] [id number], [place] [address]- 7418 Jul, [facility] [place] [facility] [address] [facility] [id number] [place] [address]- 6328 February, [facility] [address] [facility] [id number], [place] [address]- 6583 Jan, IMMUNIZATIONS No Known Immunizations SOCIAL HISTORY Never Assessed REASON FOR VISIT OB f/u 4 wk -- vincent agudelo PLAN OF CARE Activity Details Follow Up 4 Weeks Reason: VITAL SIGNS Height 62.5 in 2018-01-07 Weight 130.5 lbs 2018-01-07 Temperature 98.0 degrees Fahrenheit 2018-01-07 Heart Rate 68 bpm 2018-01-07 Respiratory Rate 18 2018-01-07 BMI 23.488 kg/m2 2018-01-07 Blood pressure systolic 118 mmHg 2018-01-07 Blood pressure diastolic 76 mmHg 2018-01-07 MEDICATIONS Medication Instructions Dosage Frequency Start Date End Date Duration Status TriNessa Lo 0.18/0.215/0.25 MG-25 MCG Orally Once a day 1 tablet 24h May 30 day(s) Not-Taking TriNessa (28) 0.18/0.215/0.25 MG-35 MCG Orally Once a day 1 tablet 24h May, 28 day(s) Not-Taking Tamiflu 75 MG Orally Twice a day 1 capsule 12h Dec, 5 day(s) Not-Taking Vitamins (Dis) Active RESULTS Name Result Date Reference Range UA OB DIP (IN HOUSE) 2018-01-07 Glucose NEG Protein 1+ PROCEDURES Procedure Date Ordered Result Body Site URINE-NO MICRO January 07, 2018 INSTRUCTIONS MEDICATIONS ADMINISTERED No Known Medications [...]
--- OUTSIDE RECORDS SUMMARY | 2018-06-27 18:47 | XMS REPORT ---
Author Author TESSIE RALPH [facility] Address [address] [place] [address] Care Team Providers Care Order Fulfillment Specialist Name Role Phone TESSIE RALPH Unavailable PROBLEMS Type Condition ICD9-CM Code [id number]-PH Code Onset Dates Condition Status SNOMED Code Problem Missed period N92.6 Active [id number] ALLERGIES No Information ENCOUNTERS Encounter Location Date Diagnosis [place] [address] [address] Apr, [place] [address] 10707- 4071 Apr, [place] [address] 05439- 0456 Mar, care, first , third trimester Z34.03 [place] [address] 39835- 0910 Mar, 35 weeks gestation of Z3A.35 [place] [address] [place] [id number] [place] [address] 45373- 3537 Mar, Third trimester Z34.93 [place] [address] 7[address]01- [address]321 February, in multigravida Z34.80 and Encounter for immunization Z23 [place] [address] 79017- 7001 February, Normal in multigravida Z34.80 [place] [address] [place] [id number] [place] [address] 92937- 0192 Jan, care, first , third trimester Z34.03 [place] [address] [place] [address] 2992 Dec, care, first , third trimester Z34.03 [facility] [address] [place] [id number] [place] [address] 70753- 6618 28 Nov, 2017 Encounter for supervision of normal first in second trimester Z34.02 [facility] [address] [place] [id number] [place] [address] 42347- 5344 Nov, [facility] [address] [place] [id number] [place] [address] 75036- 5487 Oct, Normal in multigravida Z34.80 [place] [address] [place] [id number] [place] [address] 21041- 2456 Oct, [facility] [address] [place] [id number] [place] [address] 73708- 7204 Oct, [facility] [address] [place] [id number] [place] [address] 62660- 3464 Oct, [facility] [id number] [place] [address] 33423 -6826 Oct, Missed period N92.6 [facility] [address] [place] [id number] [place] [address] 97720 -0774 May, Acute suppurative otitis media of left ear without spontaneous rupture of tympanic membrane, recurrence not specified H66.002 [facility] [address] [place] [id number] [place] [address] 53657- 0000 May, in first trimester Z33.2 [facility] [address] [place] [id number] [place] [address] 99593- 4413 May, [facility] [address] [place] [id number] [place] [address] 25673- 8902 Apr, 9 weeks gestation of Z3A.09 and Normal in multigravida Z34.80 [facility] [address] [place] [id number] [place] [address] 79847- 0788 Apr, [facility] [id number] [place] [address] 02411- 9281 Apr, [facility] [address] [place] [id number] [place] [address] 73376 -5215 Apr, Positive test Z32.01 and Otalgia of right ear H92.01 [facility] [address] [place] [id number] [place] [address] 75307 -2189 Mar, Abrasion, foot, right, initial encounter S90.811A [facility] [address] [place] [id number] [place] [address] 44281- 7633 February, [facility] [address] 55132- 7157 Jan, [facility] [address] [place] [id number] [place] [address] 92915- 0963 Nov, [facility] [address] [place] [id number] [place] [address] 86281 -6167 Oct, Sore throat J02.9 and Strep throat J02.0 [facility] [address] [place] [id number] [place] [address] 38942- 6125 Sep, [facility] [address] [place] [id number] [place] [address] 83515- 5460 Aug, [facility] [address] [place] [id number] [place] [address] 55863- 9230 Aug, [facility] [address] [place] [id number] [place] [address] 60144- 6098 Jun, [facility] [address] [place] [id number] [place] [address] 67371- 0140 May, [facility] [address] [place] [id number] [place] [address] 74475- 1498 May, Routine follow-up Z39.2 [facility] [address] [place] [id number] [place] [address] 14550 -1390 Apr, Right acute otitis media H66.91 [place] [address] [address] Apr, [place] [address] [place] [address] 9736 Apr, care, first , third trimester Z34.03 and 39 weeks gestation of Z3A.39 [place] [address] [place] [address] 94490- 6423 Mar, care, first , third trimester Z34.03 and 38 weeks gestation of Z3A.38 [place] [address] [place] [address] 44287- 2745 Mar, [place] [address] [address]- 6296 Mar, care, first , third trimester Z34.03 and 36 weeks gestation of Z3A.36 [place] [address], [place] [address]- 6813 Mar, [place] [address] [place] [address] 24257- 6024 Mar, [place] [address] [address]- 6323 Mar, [place] [address] [place] [address]- 0372 Mar, screening for streptococcus B Z36 ; care , first , third trimester Z34.03 ; Breech presentation, not applicable or unspecified fetus O32.1XX0 and 35 weeks gestation of Z3A.35 [place] [address] [place] [address] 9532 Mar, care, first , third trimester Z34.03 ; 34 weeks gestation of Z3A.34 and Breech presentation, not applicable or unspecified fetus O32.1XX0 [place] [address] [place] [address] 42580- 2525 February, care, first , third trimester Z34.03 ; 32 weeks gestation of Z3A.32 ; Syncope, unspecified syncope type R55 ; Poor appetite R63.0 ; Acute midline low back pain without sciatica M54.5 and Encounter for immunization Z23 [place] [id number] [place] [address] 70695- 0149 February, [place] [address] [place] [id number] [place] [address] 04305- 9043 February, [place] [id number] [place] [address] 73833- 2670 February, care, first , third trimester Z34.03 and 30 weeks gestation of Z3A.30 [place] [id number] [place] [address] 72286- 8311 Jan, Encounter for supervision of normal first in second trimester Z34.02 ; Diabetes mellitus screening Z13.1 ; Screening, iron deficiency anemia Z13.0 and 26 weeks gestation of Z3A.26 [place] [id number] [place] [address] 99929- 4478 Jan, [place] [address] [place] [id number] [place] [address] 93763- 4525 31 Dec, 2015 [place] [id number] [place] [address] 12632- 7409 Dec, [place] [id number] [place] [address] 59408- 7157 Dec, Encounter for supervision of normal first in second trimester Z34.02 and 22 weeks gestation of Z3A.22 [place] [id number] [place] [address] 38195- 4814 Dec, [place] [id number] [place] [address] 69773- 3198 Dec, Acute upper respiratory infection, unspecified J06.9 and Other viral agents as the cause of diseases classified elsewhere B97.89 [facility] [address] [place] [address] 23860- 8144 12 Nov, 2015 Encounter for supervision of normal first in second trimester Z34.02 ; Vaginal candidiasis B37.3 and 18 weeks gestation of Z3A.18 [facility] [address] [place] [id number] [place] [address] 63046- 8020 12 Nov, 2015 [place] [address] 26217- 5634 Oct, [place] [address] 05997- 0587 Oct, [place] [address] 32042- 2179 Oct, Encounter for supervision of normal first in second trimester Z34.02 and 15 weeks gestation of Z3A.15 [place] [address] [place] [id number] [place] [address] 01025- 7226 Sep, Encounter for supervision of normal first in first trimester Z34.01 ; Z33.1 and 11 weeks gestation of Z3A.11 [place] [address] [place] [id number] [place] [address] 16460- 9916 22 Sep, 2015 [facility] [id number] [place] [address] Sep [facility] [address] [place] [id number] [place] [address] 68689 -6199 08 Sep, 2015 Encounter for test, result positive Z32.01 [facility] [address] 41657- 8739 17 Aug, 2015 Environmental allergies Z91.09 and Sore throat J02.9 [facility] [address] [place] [id number] [place] [address] 08343- 0784 13 Jul, 2015 Physical exam Z00.00 [facility] [address] [place] [id number] [place] [address] [id number] May, Dental examination V72.2 [facility] [address] [id number] [place] [address]- 3628 14 Jan, 2015 [facility] [address] [id number] [place] [address]- 9630 Jan, [facility] [address] [id number], [place] [address]- 0736 Dec, [facility] [address] [id number], [place] [address]- 8355 Dec, [facility] [address] [id number] [place] [address]- 6329 Sep, [facility] [address] [id number] [place] 5449 Sep, [facility] [address] [facility] [id number] [place] 1257 Aug, [facility] [address] [id number], [place] [address]- 6808 Aug, [facility] [address] [id number] [place] 1858 Jan, [facility] [address] [facility] [id number], [place] [address]- 3671 Jan, [facility] [address] [id number], [place] [address]- 8532 Sep, [facility] [address] [id number], [place] [address]- 6275 Sep, [facility] [place] [facility] [address] [id number], [place] [address]- 6392 Sep, [facility] [place] [facility] [address] [facility] [id number], [place] [address]- 8616 Sep, [facility] [address] [id number], [place] [address]- 6824 30 Jan, 2013 [facility] [address] [id number] [place] [address]- 0052 Nov, [facility] [place] [facility] [address] [id number] [place] [address]- 0939 Oct, [facility] [place] [facility] [address] [id number] [place] [address]- 6573 Jul, [facility] [place] [facility] [id number] [place] [address], [place] [address]- 4999 Jul, [facility] [address] [id number] [place] [address]- 8423 Jul, [facility] [place] [facility] [address] [id number] [place] [address]- 5715 Jul, [facility] [address] [id number] [place] [address]- 9152 Oct, [facility] [address] [id number] [place] [address]- 4780 Dec, [facility] [place] [facility] [address] [id number] [place] [address]- 7023 Jul, [facility] [place] [facility] [address] [id number] [place] [address]- 8138 May, [facility] [place] [facility] [address] [id number] [place] [address]- 4568 Mar, [facility] [place] [facility] [address] [id number], [place] [address]- 6412 Sep, [facility] [place] [facility] [address] [id number] [place] [address]- 0909 Sep, [facility] [place] [facility] [address] [id number] [place] [address]- 3878 30 Jul, 2009 [facility] [place] [facility] [address] [id number] [place] [address]- 2550 Jul, [facility] [place] [facility] [address] [id number] [place] [address]- 1546 February, [facility] [address] [facility] [id number] [place] [address]- 4646 Jan, IMMUNIZATIONS No Known Immunizations SOCIAL HISTORY Never Assessed REASON FOR VISIT Requests return call PLAN OF CARE VITAL SIGNS MEDICATIONS Unknown [...]
--- OUTSIDE RECORDS SUMMARY | 2018-06-27 18:47 | XMS REPORT ---
Author Author TESSIE RALPH [facility] Address [address] [place] [address] Care Team Providers Care Cash Shortage Investigator Name Role Phone TESSIE RALPH Unavailable PROBLEMS Type Condition ICD9-CM Code DEY49-IA Code Onset Dates Condition Status SNOMED Code Problem Missed period N92.6 Active [id number] ALLERGIES Substance Reaction Event Type Date Status peaches hives Non Drug Allergy Oct, Active ENCOUNTERS Encounter Location Date Diagnosis [place] [address] [address] Apr, [place] [address] [address] Mar, care, first , third trimester Z34.03 [place] [address] [address]- [address] Mar, 35 weeks gestation of Z3A.35 [place] [address] [place] [id number] [place] [address]310- 1475 Mar, Third trimester Z34.93 [place] [address] [address] February, in multigravida Z34.80 and Encounter for immunization Z23 [place] [address] [place] [id number] [place] [address] 74674- 7275 February, Normal in multigravida Z34.80 [place] [address] [place] [id number] [place] [address] 23473- 0922 Jan, care, first , third trimester Z34.03 [place] [address] [address]- [address] Dec, care, first , third trimester Z34.03 [facility] [address] [address] Nov, Encounter for supervision of normal first in second trimester Z34.02 [facility] [address] [place] [id number] [address] Nov, [facility] [address] [place] [id number] [place] [address] 35521- 9466 Oct, Normal in multigravida Z34.80 [facility] [address] [place] [id number] [place] [address] 11165- 7565 Oct, [facility] [address] [place] [id number] [place] [address] 08378- 0740 Oct, [facility] [address] [place] [id number] [place] [address] 80269- 4508 Oct, [facility] [address] [place] [id number] [place] [address]37 -8565 Oct, Missed period N92.6 [facility] [address] [place] [id number] [place] [address] 68104 -4819 May, Acute suppurative otitis media of left ear without spontaneous rupture of tympanic membrane, recurrence not specified H66.002 [facility] [address] [address] May, in first trimester Z33.2 [facility] [address] [place] [id number] [place] [address] 02864- 8119 May, [facility] [address] [place] [id number] [place] [address] 09215- 7635 Apr, 9 weeks gestation of Z3A.09 and Normal in multigravida Z34.80 [facility] [address] [place] [id number] [address] Apr, [facility] [address] [place] [id number] [address] Apr, [facility] [address] [place] [id number] [place] [address] 38303 -9590 Apr, Positive test Z32.01 and Otalgia of right ear H92.01 [facility] [address] [place] [id number] [place] [address] 26273 -9801 Mar, Abrasion, foot, right, initial encounter S90.811A [facility] [address] [place] [id number] [place] [address] 58899- 5188 February, [facility] [address] [address]- [address] Jan, [facility] [address] [place] [id number] [place] [address] 87059- 4499 Nov, [facility] [address] [place] [id number] [place] [address] 24679 -4062 Oct, Sore throat J02.9 and Strep throat J02.0 [facility] [address] [place] [id number] [place] [address] 46997- 8212 Sep, [facility] [address] [place] [id number] [place] [address] 32565- 1415 Aug, [facility] [id number] [place] [address] 35015- 5933 Aug, [facility] [address] [place] [id number] [place] [address] 88873- 8943 Jun, [facility] [address] [place] [id number] [place] [address] 63807- 0312 May, [facility] [address] [place] [id number] [place] [address] 95508- 7978 May, Routine follow-up Z39.2 [facility] [id number] [place] [address] 86177 -5581 Apr, Right acute otitis media H66.91 [place] [address] [address] Apr, [facility] [address] [address]- 6991 Apr, care, first , third trimester Z34.03 and 39 weeks gestation of Z3A.39 [place] [id number] [place] [address] 93900- 9774 Mar, care, first , third trimester Z34.03 and 38 weeks gestation of Z3A.38 [place] [address] [address]- 408[address] Mar, [place] [address] [place] [id number] [place] [address] 98114- 6746 Mar, care, first , third trimester Z34.03 and 36 weeks gestation of Z3A.36 [place] [address] [address] 9606 Mar, [place] [address] [address]- 6989 Mar, [place] [id number] [place] [address] 03995- 5747 Mar, [place] [address] [place] [id number] [address]- [address] Mar, screening for streptococcus B Z36 ; care , first , third trimester Z34.03 ; Breech presentation, not applicable or unspecified fetus O32.1XX0 and 35 weeks gestation of Z3A.35 [place] [id number] [place] [address] 57157- 4452 Mar, care, first , third trimester Z34.03 ; 34 weeks gestation of Z3A.34 and Breech presentation, not applicable or unspecified fetus O32.1XX0 [place] [id number] [place] [address] 45714- 7452 February, care, first , third trimester Z34.03 ; 32 weeks gestation of Z3A.32 ; Syncope, unspecified syncope type R55 ; Poor appetite R63.0 ; Acute midline low back pain without sciatica M54.5 and Encounter for immunization Z23 [facility] [address] [address] 8398 February, [facility] [address] [place] [id number] [place] [address] 15508- 0320 February, [facility] [address] [place] [id number] [place] [address] 01590- 9631 February, care, first , third trimester Z34.03 and 30 weeks gestation of Z3A.30 [place] [id number] [address]- [address]85 Jan, Encounter for supervision of normal first in second trimester Z34.02 ; Diabetes mellitus screening Z13.1 ; Screening, iron deficiency anemia Z13.0 and 26 weeks gestation of Z3A.26 [place] [address] [place] [id number] [place] [address] 02430- 0833 Jan, [place] [id number] [place] [address] 93415- 0672 Dec, [place] [address] [address]- 4440 Dec, [place] [id number] [place] [address] 22834- 5258 Dec, Encounter for supervision of normal first in second trimester Z34.02 and 22 weeks gestation of Z3A.22 [place] [id number] [place] [address] 97650- 5995 Dec, [place] [id number] [place] [address] 55093- 7862 Dec, Acute upper respiratory infection, unspecified J06.9 and Other viral agents as the cause of diseases classified elsewhere B97.89 [place] [address] [place] [address] 31124- 0568 12 Nov, 2015 Encounter for supervision of normal first in second trimester Z34.02 ; Vaginal candidiasis B37.3 and 18 weeks gestation of Z3A.18 [place] [id number] [place] [address] 55685- 8331 12 Nov, 2015 [place] [address] 88919- 8800 Oct, [place] [address] [place] [id number] [place] [address] 79434- 1360 Oct, [address] [address]- 1580 Oct, Encounter for supervision of normal first in second trimester Z34.02 and 15 weeks gestation of Z3A.15 [place] [id number] [place] [address] 97552- 6523 Sep, Encounter for supervision of normal first in first trimester Z34.01 ; Z33.1 and 11 weeks gestation of Z3A.11 [place] [id number] [place] [address] 53242- 0574 Sep, [facility] [id number] [address] Sep [facility] [address] [place] [id number] [place] [address] 17481 -4979 Sep, Encounter for test, result positive Z32.01 [place] [id number] [place] [address] 02311- 3127 17 Aug, 2015 Environmental allergies Z91.09 and Sore throat J02.[address] [place] [address] 42175- 8465 13 Jul, 2015 Physical exam Z00.00 [facility] [address] [id number] [place] [address] [id number] May, Dental examination V72.2 [facility] [place] [facility] [address] [id number] [place] [address]- 4134 14 Jan, 2015 [facility] [place] [facility] [address] [id number] [place] [address]- 5517 13 Jan, 2015 [facility] [place] [facility] [address] [id number] [place] [address]- 2531 Dec, [facility] [place] [facility] [address] [id number] [place] [address]- 2210 Dec, [facility] [place] [facility] [address] [id number] [place] [address]- 0382 Sep, [facility] [place] [facility] [address] [id number] [place] [address]- 7718 Sep, [facility] [place] [facility] [address] [id number] [place] [address]- 6947 Aug, [facility] [place] [facility] [address] [id number] [address]- 0455 Aug, [facility] [place] [facility] [address] [id number] [place] [address]- 1326 Jan, [facility] [place] [facility] [address] [id number] [address]- 2382 Jan, [facility] [place] [facility] [address] [facility] [id number] [place] [address]- 8597 Sep, [facility] [place] [facility] [address] [id number] [place] [address]- 2209 Sep, [facility] [place] [facility] [address] [id number] [place] [address]- 6358 Sep, [facility] [place] [facility] [address] [id number] [address]- 2645 Sep, [facility] [place] [facility] [address] [facility] [id number] [place] [address]- 9486 30 Jan, 2013 [facility] [place] [facility] [address] [id number] [address]- 4615 Nov, [facility] [address] [id number] [place] [address]- 8674 Oct, [facility] [place] [facility] [address] [id number] [place] [address]- 7757 Jul, [facility] [place] [facility] [address] [id number] [place] [address]- 6626 Jul, [facility] [place] [facility] [address] [id number] [place] [address]- 4407 Jul, [facility] [address] [id number] [place] [address], [place] [address]- 8419 Jul, [facility] [place] [facility] [address] [id number] [place] [address]- 9531 Oct, [facility] [address] [facility] [id number] [place] [address]- 5033 Dec, [facility] [place] [facility] [address] [facility] [id number] [place] [address]- 9542 Jul, [facility] [place] [facility] [address] [facility] [id number] [place] [address]- 6643 May, [facility] [place] [facility] [address] [facility] [id number] [place] [address]- 7143 Mar, [facility] [place] [facility] [address] [facility] [id number] [place] [address]- 0463 Sep, [facility] [place] [facility] [address] [id number] [place] [address]- 1858 Sep, [facility] [place] [facility] [address] [facility] [id number] [place] [address]- 7458 Jul, [facility] [place] [facility] [address] [facility] [id number] [place] [address]- 3692 Jul, [facility] [place] [facility] [address] [facility] [id number] [place] [address]- 6590 February, [facility] [place] [facility] [address] [facility] [id number] [address]- 6674 Jan, IMMUNIZATIONS No Known Immunizations SOCIAL HISTORY Never Assessed REASON FOR VISIT OB-intake--rubiopettGHAZALA PLAN OF CARE Activity Details Follow Up 4 Weeks Reason: VITAL SIGNS Height 62.5 in 2017-11-12 Weight 121.4 lbs 2017-11-12 Temperature 98.2 degrees Fahrenheit 2017-11-12 Heart Rate 88 bpm 2017-11-12 Respiratory Rate 20 2017-11-12 BMI 21.851 kg/m2 2017-11-12 Blood pressure systolic 132 mmHg 2017-11-12 Blood pressure diastolic 72 mmHg 2017-11-12 MEDICATIONS Medication Instructions Dosage Frequency Start Date [...] PROCEDURES Procedure Date Ordered Result Body Site No Charge Nov 12, 2017 LAB NOT BILLED BY [facility] Nov 12, 2017 VENIPUNCT, ROUTINE* Nov 12, 2017 URINALYSIS, AUTO, W/O SCOPE Nov 12, 2017 INSTRUCTIONS MEDICATIONS ADMINISTERED No Known Medications [...]
--- OUTSIDE RECORDS SUMMARY | 2018-06-27 18:48 | XMS REPORT ---
Author Author YADIRA OROZCO [facility] Address [address] [place] [address] Care Team Providers Care Corporate Pilot Name Role Phone YADIRA OROZCO Unavailable PROBLEMS Type Condition ICD9-CM Code [id number] Code Onset Dates Condition Status SNOMED Code Problem Missed period N92.6 Active [id number] ALLERGIES No Information ENCOUNTERS Encounter Location Date Diagnosis [place] [address] [address] Mar, [place] [address] [address] Mar, 35 weeks gestation of Z3A.35 [place] [address] [address] Mar, Third trimester Z34.93 [place] [address] [address] February, in multigravida Z34.80 and Encounter for immunization Z23 [place] [address] [address] February, Normal in multigravida Z34.80 [place] [address] [address] Jan, care, first , third trimester Z34.03 [place] [address] [address] Dec, care, first , third trimester Z34.03 [place] [address] [place] [id number] [place] [address]37- 14[address] Nov, Encounter for supervision of normal first in second trimester Z34.02 [facility] [address], [place] [address] Nov, [facility] [address] [place] [id number] [place] [address] 78596- 8030 Oct, Normal in multigravida Z34.80 [facility] [address] [place] [id number] [place] [address] 64829- 9922 Oct, [facility] [address] [place] [id number] [place] [address] 14867- 0553 Oct, [place] [address] [place] [id number] [place] [address] 78710- 0155 Oct, [facility] [address] [place] [id number] [place] [address] Oct, Missed period N92.6 [facility] [place] [address] [place] [id number] [place] [address]47 [address] May, Acute suppurative otitis media of left ear without spontaneous rupture of tympanic membrane, recurrence not specified H66.002 [place] [address] [place] [id number] [place] [address] 44469- 2614 May, in first trimester Z33.2 [place] [address], [place] [address] May, [place] [address] [place] [id number] [place] [address] 94478- 6303 Apr, 9 weeks gestation of Z3A.09 and Normal in multigravida Z34.80 [place] [address] [place] [id number] [address] Apr, [place] [address] [place] [id number] [place] [address] 95770- 6672 Apr, [facility] [address] [place] [id number] [address] 12 Silverio, 2017 Positive test Z32.01 and Otalgia of right ear H92.01 [facility] [id number] [place] [address] 45772 -[address]69 Mar, Abrasion, foot, right, initial encounter S90.811A [facility] [address] [place] [id number] [place] [address] 83717- 2735 February, [facility] [address] [address]- 3[address] Jan, [facility] [address] [place] [id number] [place] [address] 51106- 0909 Nov, [facility] [address] [place] [id number] [place] [address] 09610 -[address]67 Oct, Sore throat J02.9 and Strep throat J02.0 [facility] [address] [place] [id number] [place] [address] 06785- 7808 Sep, [facility] [address] [place] [id number] [place] [address] 70530- 5989 Aug, [facility] [address] [place] [id number] [place] [address] 10109- 6805 Aug, [facility] [address] [place] [id number] [place] [address] 34755- 1472 Jun, [facility] [address] [place] [id number] [place] [address] 72870- 2902 May, [facility] [address] [place] [id number] [place] [address] 05299- 7675 May, Routine follow-up Z39.2 [facility] [address] [place] [id number] [place] [address] 09336 -4976 Apr, Right acute otitis media H66.91 [facility] [address] [place] [id number] [place] [address] 65929- 0033 Apr, [facility] [address] [place] [id number] [place] [address] 65366- 7825 Apr, care, first , third trimester Z34.03 and 39 weeks gestation of Z3A.39 [place] [address] [place] [id number] [place] [address] 57631- 2317 Mar, care, first , third trimester Z34.03 and 38 weeks gestation of Z3A.38 [place] [address] [place] [id number] [place] [address] 59803- 1824 Mar, [place] [address] [place] [id number] [place] [address] 13732- 0274 Mar, care, first , third trimester Z34.03 and 36 weeks gestation of Z3A.36 [place] [address] [place] [id number] [place] [address] 75998- 3752 Mar, [place] [address] [place] [id number] [place] [address] 53525- 0135 Mar, [place] [address] [place] [id number] [place] [address] 28792- 9173 Mar, [place] [address] [place] [id number] [place] [address] 69885- 8440 Mar, screening for streptococcus B Z36 ; care , first , third trimester Z34.03 ; Breech presentation, not applicable or unspecified fetus O32.1XX0 and 35 weeks gestation of Z3A.35 [place] [id number] [place] [address] 37327- 5124 Mar, care, first , third trimester Z34.03 ; 34 weeks gestation of Z3A.34 and Breech presentation, not applicable or unspecified fetus O32.1XX0 [place] [id number] [place] [address] 44303- 8640 February, care, first , third trimester Z34.03 ; 32 weeks gestation of Z3A.32 ; Syncope, unspecified syncope type R55 ; Poor appetite R63.0 ; Acute midline low back pain without sciatica M54.5 and Encounter for immunization Z23 [place] [address], [place] [address] February, [place] [address] [place] [id number] [place] [address] 72744- 4441 February, [place] [address] [place] [id number] [address] 97[address] February, care, first , third trimester Z34.03 and 30 weeks gestation of Z3A.30 [place] [address] [place] [id number], [place] [address]- [address] 08 Jan, 2016 Encounter for supervision of normal first in second trimester Z34.02 ; Diabetes mellitus screening Z13.1 ; Screening, iron deficiency anemia Z13.0 and 26 weeks gestation of Z3A.26 [place] [address] [place] [id number] [place] [address] 88703- 6805 Jan, [place] [id number] [place] [address] 22618- 9718 Dec, [place] [address] [place] [id number] [place] [address] 90550- 6605 Dec, [place] [address] [place] [id number] [address]- 8737 Dec, Encounter for supervision of normal first in second trimester Z34.02 and 22 weeks gestation of Z3A.22 [place] [address], [place] [address]- 1806 Dec, [place] [address], [place] [address]- 8869 Dec, Acute upper respiratory infection, unspecified J06.9 and Other viral agents as the cause of diseases classified elsewhere B97.89 [place] [address] [place] [id number], [place] [address]- 9[address] 12 Nov, 2015 Encounter for supervision of normal first in second trimester Z34.02 ; Vaginal candidiasis B37.3 and 18 weeks gestation of Z3A.18 [facility] [id number] [place] [address] 53864- 4271 Nov, [place] [address] [place] [id number] [place] [address] 26122- 2332 Oct, [facility] [address] [place] [id number] [place] [address] 07483- 6129 Oct, [place] [address] 7[address]- 0884 Oct, Encounter for supervision of normal first in second trimester Z34.02 and 15 weeks gestation of Z3A.15 [place] [address] [address]- 9219 Sep, Encounter for supervision of normal first in first trimester Z34.01 ; Z33.1 and 11 weeks gestation of Z3A.11 [place] [address] [place] [id number] [place] [address] 57077- 9316 Sep, [facility] [id number] [place] [address] Sep [facility] [address] [place] [id number] [place] [address] 06098 -0456 Sep, Encounter for test, result positive Z32.01 [place] [id number] [place] [address] 03973- 1680 17 Aug, 2015 Environmental allergies Z91.09 and Sore throat J02.9 [place] [address] [place] [id number] [place] [address] 11513- 7144 13 Jul, 2015 Physical exam Z00.00 [facility] [address] [place] [id number] [place] [address] [id number] May, Dental examination V72.2 [facility] [address] [place] [id number] [place] [address] 40762- 3546 14 Jan, 2015 [facility] [address] [address]- 8406 Jan, [facility] [address] [id number] [place] [address]- 0767 Dec, [facility] [place] [facility] [address] [id number] [place] [address]- 5473 Dec, [facility] [place] [facility] [address] [id number] [place] [address]- 3754 Sep, [facility] [place] [facility] [address] [id number] [place] [address]- 4927 Sep, [facility] [place] [facility] [address] [id number] [place] [address]- 7925 Aug, [facility] [place] [facility] [address] [id number] [place] [address]- 6596 Aug, [facility] [place] [facility] [address] [id number] [place] [address]- 0783 Jan, [facility] [place] [facility] [address] [id number] [place] [address]- 6137 Jan, [facility] [place] [facility] [address] [id number] [place] [address] Sep, [facility] [place] [facility] [address] [id number] [place] [address]- 8374 Sep, [facility] [place] [facility] [address] [id number] [address]- 7258 Sep, [facility] [place] [facility] [address] [id number], [place] [address]- 3922 Sep, [facility] [place] [facility] [address] [id number] [place] [address]- 1166 Jan, [facility] [place] [facility] [address] [id number] [place] [address]- 1792 Nov, [facility] [place] [facility] [address] [id number] [place] [address]- 4068 Oct, [facility] [place] [facility] [address], [place] [address]- 5926 Jul, [facility] [address], [place] [address]- 8631 Jul, [facility] [address], [place] [address]- 5856 Jul, [facility] [id number] [place] [address] 93795- 8686 Jul, [facility] [address] [facility] [id number] [address]- 1566 Oct, [facility] [id number] [place] [address] 03864- 1566 Dec, [facility] [address], [place] [address]- 4426 Jul, [facility] [id number] [place] [address] 17459- 5285 May, [facility] [address], [place] [address]- 0808 Mar, [facility] [address], [place] [address]- 2156 Sep, [facility] [address], [place] [address]- 7746 Sep, [facility] [address], [place] [address]- 7963 Jul, [facility] [address], [place] [address]- 9541 Jul, [facility] [address], [place] [address]- 0998 February, [facility] [address], [place] [address]- 9226 Jan, IMMUNIZATIONS No Known Immunizations SOCIAL HISTORY Never Assessed REASON FOR VISIT Schedule OB Intake PLAN OF CARE VITAL SIGNS MEDICATIONS Unknown [...] (NICU) 1996 Hospitalization History kidney infection/4 days 2016
--- OUTSIDE RECORDS SUMMARY | 2018-06-27 18:48 | XMS REPORT ---
Author Author TESSIE RALPH [facility] Address [address] [place] [address] Care Team Providers Care Aircraft Ordnance Technician Name Role Phone TESSIE RALPH Unavailable PROBLEMS Type Condition ICD9-CM Code RGD33-PB Code Onset Dates Condition Status SNOMED Code Problem Missed period N92.6 Active [id number] ALLERGIES No Information ENCOUNTERS Encounter Location Date Diagnosis [place] [address] [address] Mar, [place] [address] [address] Mar, 35 weeks gestation of Z3A.35 [place] [address] [address]133- 6[address] Mar, Third trimester Z34.93 [place] [address] 06396- 7424 February, in multigravida Z34.80 and Encounter for immunization Z23 [place] [address] [place] [id number] [place] [address] 67477- 7826 February, Normal in multigravida Z34.80 [place] [address] [address]- [address] Jan, care, first , third trimester Z34.03 [place] [address] 89400- 7502 Dec, care, first , third trimester Z34.03 [place] [address] [place] [id number] [place] [address] 86344- 4713 Nov, Encounter for supervision of normal first in second trimester Z34.02 [facility] [address], [place] [address] Nov, [facility] [address] [place] [id number] [place] [address] 44340- 5665 Oct, Normal in multigravida Z34.80 [facility] [address] [place] [id number] [place] [address] 09381- 9125 Oct, [facility] [address] [place] [id number] [place] [address] 78285- 7199 Oct, [facility] [address] [place] [id number] [place] [address] 27416- 7984 Oct, [facility] [address] [place] [id number] [place] [address] 01173 -3010 Oct, Missed period N92.6 [facility] [address] [place] [id number] [place] [address] 86154 -4640 May, Acute suppurative otitis media of left ear without spontaneous rupture of tympanic membrane, recurrence not specified H66.002 [place] [address] [place] [id number] [place] [address] 85816- 0929 May, in first trimester Z33.2 [place] [address] [place] [id number] [place] [address] 46300- 8169 May, [facility] [address] [place] [id number] [place] [address] 37250- 8360 Apr, 9 weeks gestation of Z3A.09 and Normal in multigravida Z34.80 [facility] [id number] [place] [address] 84167- 6859 Apr, [facility] [address] [place] [id number] [place] [address] 20609- 6405 Apr, [facility] [id number] [place] [address] 66340 -6282 Apr, Positive test Z32.01 and Otalgia of right ear H92.01 [facility] [address], [place] [address] Mar, Abrasion, foot, right, initial encounter S90.811A [facility] [address] [place] [id number] [address] February, [facility] [address] [place] [id number] [place] [address] 69734- 6937 Jan, [facility] [address] [place] [id number] [place] [address] 10104- 7145 Nov, [facility] [address] [place] [id number] [place] [address] 33358 -7873 Oct, Sore throat J02.9 and Strep throat J02.0 [facility] [id number] [place] [address] 66517- 6329 Sep, [facility] [address] [place] [id number] [place] [address] 43024- 8805 Aug, [facility] [address] [place] [id number] [place] [address] 92709- 9741 Aug, [facility] [address] [place] [id number] [place] [address] 92774- 9483 Jun, [facility] [address], [place] [address]- 8253 May, [facility] [address] [place] [id number] [place] [address] 78785- 7631 May, Routine follow-up Z39.2 [facility] [id number] [place] [address] 37011 -5743 Apr, Right acute otitis media H66.91 [facility] [address], [place] [address]- 0435 Apr, [facility] [address] [place] [id number] [place] [address] 02138- 1052 Apr, care, first , third trimester Z34.03 and 39 weeks gestation of Z3A.39 [place] [id number] [place] [address] 60311- 1650 Mar, care, first , third trimester Z34.03 and 38 weeks gestation of Z3A.38 [place] [id number] [place] [address] 44391- 0256 Mar, [place] [address] [place] [id number] [place] [address] 78315- 0728 Mar, care, first , third trimester Z34.03 and 36 weeks gestation of Z3A.36 [place] [id number] [place] [address] 69467- 9653 Mar, [place] [address] [place] [id number] [place] [address] 56661- 8489 Mar, [place] [address] [place] [id number] [place] [address] 94615- 2980 Mar, [place] [address] [place] [id number] [place] [address] 03467- 4250 Mar, screening for streptococcus B Z36 ; care , first , third trimester Z34.03 ; Breech presentation, not applicable or unspecified fetus O32.1XX0 and 35 weeks gestation of Z3A.35 [place] [id number] [place] [address] 33861- 6710 Mar, care, first , third trimester Z34.03 ; 34 weeks gestation of Z3A.34 and Breech presentation, not applicable or unspecified fetus O32.1XX0 [place] [id number] [place] [address] 54136- 4409 February, care, first , third trimester Z34.03 ; 32 weeks gestation of Z3A.32 ; Syncope, unspecified syncope type R55 ; Poor appetite R63.0 ; Acute midline low back pain without sciatica M54.5 and Encounter for immunization Z23 [facility] [place] [facility] [address], [place] [address]- [address] February, [place] [address] [place] [id number] [address]- 2869 February, [place] [address], [place] [address]- 4848 February, care, first , third trimester Z34.03 and 30 weeks gestation of Z3A.30 [place] [address], [place] [address]- [address] 08 Jan, 2016 Encounter for supervision of normal first in second trimester Z34.02 ; Diabetes mellitus screening Z13.1 ; Screening, iron deficiency anemia Z13.0 and 26 weeks gestation of Z3A.26 [place] [address], [place] [address]- 1352 Jan, [place] [address] [place] [id number] [address]- 3323 Dec, [place] [address], [place] [address]- 5481 Dec, [place] [id number] [place] [address] 91619- 5343 Dec, Encounter for supervision of normal first in second trimester Z34.02 and 22 weeks gestation of Z3A.22 [place] [address], [place] [address]- 7918 Dec, [place] [address], [place] [address]- 5545 Dec, Acute upper respiratory infection, unspecified J06.9 and Other viral agents as the cause of diseases classified elsewhere B97.89 [place] [address] [place] [id number] [address]- 6086 12 Nov, 2015 Encounter for supervision of normal first in second trimester Z34.02 ; Vaginal candidiasis B37.3 and 18 weeks gestation of Z3A.18 [place] [id number] [place] [address] 80044- 3988 Nov, [place] [address] [place] [id number] [place] [address] 90001- 3159 Oct, [facility] [address] [place] [id number] [place] [address] 35257- 6466 Oct, [place] [address] [place] [id number] [place] [address] 01529- 8809 Oct, Encounter for supervision of normal first in second trimester Z34.02 and 15 weeks gestation of Z3A.15 [place] [id number] [place] [address] 45518- 7223 Sep, Encounter for supervision of normal first in first trimester Z34.01 ; Z33.1 and 11 weeks gestation of Z3A.11 [place] [id number] [place] [address] 29686- 2447 Sep, [facility] [employer] [id number] [place] [address] Sep [facility] [address] [place] [id number] [place] [address] 17301 -0157 Sep, Encounter for test, result positive Z32.01 [place] [id number] [place] [address] 75173- 4937 17 Aug, 2015 Environmental allergies Z91.09 and Sore throat J02.9 [place] [id number] [place] [address] 39097- 5457 Jul, Physical exam Z00.00 [facility] [address] [place] [id number] [place] [address] [id number] May, Dental examination V72.2 [place] [id number] [place] [address] 28770- 5425 14 Jan, 2015 [place] [id number] [place] [address] 61449- 5328 Jan, [facility] [place] [facility] [address] [id number] [place] [address]- 6280 Dec, [facility] [place] [facility] [address] [id number] [place] [address]- 4687 Dec, [facility] [place] [facility] [address] [id number] [place] [address]- 9442 Sep, [facility] [place] [facility] [address] [id number] [place] [address]- 6678 Sep, [facility] [place] [facility] [address] [id number] [place] [address]- 7914 Aug, [facility] [place] [facility] [address] [id number] [place] [address]- 8097 Aug, [facility] [place] [facility] [address] [id number] [place] [address]- 0954 Jan, [facility] [place] [facility] [address] [id number] [place] [address]- 8467 Jan, [facility] [place] [facility] [address] [id number] [place] [address]- 0055 Sep, [facility] [place] [facility] [address] [id number] [place] [address]- 6363 Sep, [facility] [place] [facility] [address] [id number], [place] [address]- 2881 Sep, [facility] [place] [facility] [address] [id number], [place] [address]- 2778 Sep, [facility] [place] [facility] [address] [id number] [place] [address]- 6733 Jan, [facility] [place] [facility] [address] [id number], [place] [address]- 4102 Nov, [facility] [place] [facility] [address] [id number] [place] [address]- 0319 Oct, [facility] [place] [facility] [address], [place] [address]- 0168 Jul, [facility] [address], [place] [address]- 8444 Jul, [facility] [address], [place] [address]- 9776 Jul, [facility] [address], [place] [address]- 8736 Jul, [facility] [address], [place] [address]- 4705 Oct, [facility] [id number] [place] [address] 43845- 5881 Dec, [facility] [address], [place] [address]- 1386 Jul, [facility] [address], [place] [address]- 5562 May, [facility] [address], [place] [address]- 1428 Mar, [facility] [address], [place] [address]- 3886 Sep, [facility] [address], [place] [address]- 7386 Sep, [facility] [address], [place] [address]- 1745 Jul, [facility] [address], [place] [address]- 7755 Jul, [facility] [address], [place] [address]- 2695 February, [facility] [address], [place] [address]- 6606 Jan, IMMUNIZATIONS No Known Immunizations SOCIAL HISTORY [...]
--- OUTSIDE RECORDS SUMMARY | 2018-06-27 18:48 | XMS REPORT ---
Author Author TESSIE RALPH [facility] Address [address] [place] [address] Care Team Providers Care Matlab Developer Name Role Phone TESSIE RALPH Unavailable PROBLEMS Type Condition ICD9-CM Code EUU89-UO Code Onset Dates Condition Status SNOMED Code Problem Missed period N92.6 Active [id number] ALLERGIES Substance Reaction Event Type Date Status peaches hives Non Drug Allergy Oct, Active ENCOUNTERS Encounter Location Date Diagnosis [place] [address] [address] Mar, [place] [address] 65[address]184 Mar, 35 weeks gestation of Z3A.35 [place] [address] [address]- 9085 Mar, Third trimester Z34.93 [place] [address] [place] [id number] [place] [address] 54252- 4521 February, in multigravida Z34.80 and Encounter for immunization Z23 [place] [address] [place] [id number] [place] [address] 97258- 5612 February, Normal in multigravida Z34.80 [place] [address] [place] [id number] [place] [address] 05253- 2116 Jan, care, first , third trimester Z34.03 [place] [address] [place] [id number] [place] [address] 23172- 7673 Dec, care, first , third trimester Z34.03 [place] [address] [place] [id number] [place] [address] 19719- 9361 Nov, Encounter for supervision of normal first in second trimester Z34.02 [facility] [address] [place] [id number] [place] [address] 13980- 5182 Nov, [facility] [address] [place] [id number] [place] [address] 35247- 7300 Oct, Normal in multigravida Z34.80 [facility] [address] [place] [id number] [place] [address] 69413- 6517 Oct, [facility] [address] [place] [id number] [place] [address] 78644- 4801 Oct, [facility] [address] [place] [id number] [place] [address] 78980- 9422 Oct, [facility] [address] [place] [id number] [place] [address] 16480 -3709 Oct, Missed period N92.6 [facility] [address] [place] [id number] [place] [address] 20271 -3320 May, Acute suppurative otitis media of left ear without spontaneous rupture of tympanic membrane, recurrence not specified H66.002 [place] [address] [place] [id number] [place] [address] 51290- 9495 May, in first trimester Z33.2 [place] [address] [place] [id number] [place] [address] 00185- 0600 May, [facility] [address] [place] [id number] [place] [address] 70328- 3703 Apr, 9 weeks gestation of Z3A.09 and Normal in multigravida Z34.80 [facility] [address] [place] [id number] [place] [address] 78934- 3405 Apr, [facility] [address] [place] [id number] [place] [address] 84808- 2687 Apr, [facility] [address] [place] [id number] [place] [address] 85744 -3245 Apr, Positive test Z32.01 and Otalgia of right ear H92.01 [facility] [address] [place] [address] 61309 -5010 Mar, Abrasion, foot, right, initial encounter S90.811A [facility] [address] [place] [id number] [place] [address] 71713- 3282 February, [facility] [address] [place] [id number] [place] [address] 26034- 4178 Jan, [facility] [address] [place] [id number] [place] [address] 17305- 1214 Nov, [facility] [address] [place] [id number] [place] [address] 74580 -5547 Oct, Sore throat J02.9 and Strep throat J02.0 [facility] [address] [place] [id number] [place] [address] 78135- 0182 Sep, [facility] [address] [place] [id number] [place] [address] 49423- 7353 Aug, [facility] [address] [place] [id number] [place] [address] 11208- 1285 Aug, [facility] [address] [place] [id number] [place] [address] 09293- 0821 Jun, [facility] [address] [place] [id number] [place] [address] 22737- 3984 May, [facility] [address] [place] [id number] [place] [address] 52198- 1561 May, Routine follow-up Z39.2 [facility] [address] [place] [id number] [place] [address] 68212 -2677 Apr, Right acute otitis media H66.91 [facility] [address] [place] [address] 07271- 7770 Apr, [facility] [address] [address] 9957 Apr, care, first , third trimester Z34.03 and 39 weeks gestation of Z3A.39 [place] [address] [address] 5532 Mar, care, first , third trimester Z34.03 and 38 weeks gestation of Z3A.38 [place] [address] [place] [id number] [place] [address] 98258- 7115 Mar, [place] [address] [place] [id number] [place] [address] 28710- 6464 Mar, care, first , third trimester Z34.03 and 36 weeks gestation of Z3A.36 [place] [address] [address]- 6533 Mar, [place] [address] [place] [id number] [place] [address] 45658- 6500 Mar, [place] [address] [place] [address] 44377- 5146 Mar, [place] [address] [place] [address] 64080- 6026 Mar, screening for streptococcus B Z36 ; care , first , third trimester Z34.03 ; Breech presentation, not applicable or unspecified fetus O32.1XX0 and 35 weeks gestation of Z3A.[address] [place] [address] 55363- 5326 Mar, care, first , third trimester Z34.03 ; 34 weeks gestation of Z3A.34 and Breech presentation, not applicable or unspecified fetus O32.1XX0 [address] [address] 2702 February, care, first , third trimester Z34.03 ; 32 weeks gestation of Z3A.32 ; Syncope, unspecified syncope type R55 ; Poor appetite R63.0 ; Acute midline low back pain without sciatica M54.5 and Encounter for immunization Z23 [place] [address] [address]- 4075 February, [place] [address] [place] [id number] [place] [address] 47224- 6581 February, [place] [address] [place] [id number] [place] [address] 57514- 7982 February, care, first , third trimester Z34.03 and 30 weeks gestation of Z3A.30 [place] [address], [place] [address]- 5286 08 Jan, 2016 Encounter for supervision of normal first in second trimester Z34.02 ; Diabetes mellitus screening Z13.1 ; Screening, iron deficiency anemia Z13.0 and 26 weeks gestation of Z3A.26 [place] [address] [place] [id number] [place] [address] 09403- 8516 08 Jan, 2016 [place] [address] [address]- 6075 Dec, [place] [address] [place] [id number] [place] [address] 92755- 9764 Dec, [place] [address] [address]- 6153 Dec, Encounter for supervision of normal first in second trimester Z34.02 and 22 weeks gestation of Z3A.22 [place] [address] [address]- 7549 Dec, [place] [address] [place] [address] 10581- 8578 Dec, Acute upper respiratory infection, unspecified J06.9 and Other viral agents as the cause of diseases classified elsewhere B97.89 [place] [address] [place] [id number] [address]- 7184 12 Nov, 2015 Encounter for supervision of normal first in second trimester Z34.02 ; Vaginal candidiasis B37.3 and 18 weeks gestation [address] Z3A.18 [facility] [address] [place] [address] 64748- 5923 Nov, [facility] [address] [place] [id number] [place] [address] 73479- 9388 Oct, [facility] [address] [place] [address] 81433- 7921 Oct, [place] [address] [place] [id number] [place] [address] 22810- 5072 Oct, Encounter for supervision of normal first in second trimester Z34.02 and 15 weeks gestation of Z3A.15 [place] [address] [place] [address] 82937- 6020 Sep, Encounter for supervision of normal first in first trimester Z34.01 ; Z33.1 and 11 weeks gestation of Z3A.11 [place] [address] [place] [address] 87506- 1467 Sep, [facility] [place] [id number] [place] [address] Sep [facility] [address] [place] [address] [place] [address] 98778 -6280 Sep, Encounter for test, result positive Z32.01 [address] [place] [address] 71322- 0949 17 Aug, 2015 Environmental allergies Z91.09 [address].9 [facility] [address] [place] [address] 16590- 5079 Jul, Physical exam Z00.00 [facility] [address] [place] [address] [id number] May, Dental examination V72.2 [facility] [address] [place] [address] 53220- 0320 14 Jan, 2015 [facility] [address] [place] [id number] [place] [address]- 6859 Jan, [facility] [address] [id number] [place] [address]- 6931 Dec, [facility] [address] [id number] [place] [address]- 8812 Dec, [facility] [address] [id number] [place] [address]- 9213 Sep, [facility] [address] [id number] [place] [address]- 8381 Sep, [facility] [address] [id number] [place] [address]- 9773 Aug, [facility] [address] [id number] [place] [address]- 4320 Aug, [facility] [address] [facility] [id number] [place] [address]- 2063 Jan, [facility] [address] [id number] [place] [address]- 2861 Jan, [facility] [address] [id number] [place] [address]- 9550 Sep, [facility] [address] [facility] [id number] [place] [address]- 8589 Sep, [facility] [address] [id number] [place] [address]- 6607 Sep, [facility] [address] [id number] [place] [address]- 8349 Sep, [facility] [address] [id number] [place] [address]- 5671 30 Jan, 2013 [facility] [address] [id number] [place] [address]- 2546 Nov, [facility] [address] [id number] [place] [address]- 1824 Oct, [facility] [address] [id number] [address] Jul, [facility] [address] [id number] [address]14 Jul, [facility] [address] [facility] [id number] [address]1 Jul, [facility] [address] [id number] [address]- 7335 Jul, [facility] [address] [id number] [place] 8734 Oct, [facility] [address] [facility] [id number] [address]016 Dec, [facility] [address] [facility] [id number] [address]657 Jul, [facility] [address] [facility] [id number] [address]- 1282 May, [facility] [address] [facility] [id number] [address]- 3947 Mar, [facility] [address] [facility] [id number]- 2422 Sep, [facility] [address] [facility] [id number], [place] [address]- 4936 Sep, [facility] [address] [facility] [id number] [address]- 4716 Jul, [facility] [address] [facility] [id number], [place] 1222 Jul, [facility] [address] [facility] [id number], [place] [address]- 8416 February, [facility] [address] [facility] [id number], [place] [address]- 2540 Jan, IMMUNIZATIONS No Known Immunizations SOCIAL HISTORY Never Assessed REASON FOR VISIT obhx PLAN OF CARE VITAL SIGNS MEDICATIONS Medication Instructions Dosage Frequency Start Date End Date Duration Status Vitamins (Dis) Active Tamiflu 75 MG Orally Twice a day 1 capsule 12h Dec, 5 day(s) Not-Taking TriNessa (28) 0.18/0.215/0.25 MG-35 MCG Orally Once a day 1 tablet 24h May, 28 day(s) Not-Taking TriNessa Lo 0.18/0.215/0.25 MG-25 MCG Orally Once a day 1 tablet 24h May 30 day(s) Not-Taking RESULTS No Results PROCEDURES No Known procedures [...]
--- OUTSIDE RECORDS SUMMARY | 2018-06-27 18:49 | XMS REPORT ---
Author Author VERONA HUI [facility] Address [address] [place] [address] Care Team Providers Care Watch Caser Name Role Phone VERONA HUI Unavailable PROBLEMS Type Condition ICD9-CM Code USU29-EP Code Onset Dates Condition Status SNOMED Code Problem Missed period N92.6 Active 44332378 ALLERGIES Substance Reaction Event Type Date Status peaches Unknown Non Drug Allergy Oct, Active ENCOUNTERS Encounter Location Date Diagnosis [place] [address] [address] Mar, [address] [address] Mar, 35 weeks gestation of Z3A.35 [place] [address] [address] Mar, Third trimester Z34.[address] [address] February, in multigravida Z34.80 and Encounter for immunization Z23 [place] [address] [address] February, Normal in multigravida Z34.80 [place] [address] [address] Jan, care, first , third trimester Z34.03 [place] [address] [address] Dec, care, first , third trimester Z34.03 [place] [address] [place] [id number] [place] [address]67- 1174 Nov, Encounter for supervision of normal first in second trimester Z34.02 [facility] [address] [address] Nov, [facility] [address] [place] [id number] [place] [address] 64107- 1435 Oct, Normal in multigravida Z34.80 [facility] [address] [place] [id number] [place] [address] 37989- 7191 Oct, [facility] [address] [place] [id number] [place] [address] 01930- 5657 Oct, [facility] [address] [place] [id number] [place] [address] 85881- 8384 Oct, [facility] [address] [place] [id number] [place] [address]75 -4346 Oct, Missed period N92.6 [facility] [address] [place] [id number] [place] [address] -[address]127 May, Acute suppurative otitis media of left ear without spontaneous rupture of tympanic membrane, recurrence not specified H66.002 [facility] [address] [place] [id number] [place] [address] 39889- 7651 May, in first trimester Z33.2 [place] [address] [place] [id number] [place] [address] 81156- 8222 May, [facility] [address] [place] [id number] [place] [address] 27683- 2798 Apr, 9 weeks gestation of Z3A.09 and Normal in multigravida Z34.80 [facility] [address] [place] [id number] [place] [address] 03500- 6604 Apr, [facility] [address] [place] [id number] [place] [address] 99489- 9133 Apr, [facility] [address] [place] [id number] [place] [address] 67842 -6033 Apr, Positive test Z32.01 and Otalgia of right ear H92.01 [facility] [address] [place] [address]22 -2578 Mar, Abrasion, foot, right, initial encounter S90.811A [facility] [address] [place] [address] 53653- 0832 February, [facility] [address] [place] [id number] [place] [address] 92544- 5948 Jan, [facility] [address] [place] [id number] [place] [address] 85793- 5520 Nov, [facility] [address] [place] [id number] [place] [address] 97974 -1394 Oct, Sore throat J02.9 and Strep throat J02.0 [facility] [address] [place] [id number] [place] [address] 16648- 7126 Sep, [facility] [address] [place] [id number] [place] [address] 57069- 6154 Aug, [facility] [address] [place] [id number] [place] [address] 85143- 9044 Aug, [facility] [address] [place] [address] 55479- 7350 Jun, [facility] [address] [place] [id number] [place] [address] 76682- 1171 May, [facility] [address] [place] [id number] [place] [address] 04081- 9017 May, Routine follow-up Z39.2 [facility] [address] [place] [id number] [place] [address] 23702 -1511 Apr, Right acute otitis media H66.91 [facility] [address] [place] [id number] [place] [address] 54156- 8871 Apr, [facility] [address] [place] [id number] [address] Apr, care, first , third trimester Z34.03 and 39 weeks gestation of Z3A.39 [place] [address] [place] [id number] [place] [address] 32334- 6558 Mar, care, first , third trimester Z34.03 and 38 weeks gestation of Z3A.38 [place] [address] [place] [id number] [place] [address] 00303- 4074 Mar, [place] [address] [place] [id number] [place] [address] 81296- 2934 Mar, care, first , third trimester Z34.03 and 36 weeks gestation of Z3A.36 [place] [address] [place] [id number] [place] [address] 90754- 2296 Mar, [place] [address] [place] [id number] [place] [address] 46202- 0767 Mar, [place] [address] [place] [id number] [place] [address] 88999- 3060 Mar, [place] [address] [place] [id number] [place] [address] 68774- 7426 Mar, screening for streptococcus B Z36 ; care , first , third trimester Z34.03 ; Breech presentation, not applicable or unspecified fetus O32.1XX0 and 35 weeks gestation of Z3A.35 [place] [address] [place] [id number] [place] [address] 21918- 4306 Mar, care, first , third trimester Z34.03 ; 34 weeks gestation of Z3A.34 and Breech presentation, not applicable or unspecified fetus O32.1XX0 [place] [address] [place] [address] 64664- 9336 February, care, first , third trimester Z34.03 ; 32 weeks gestation of Z3A.32 ; Syncope, unspecified syncope type R55 ; Poor appetite R63.0 ; Acute midline low back pain without sciatica M54.5 and Encounter for immunization Z23 [place] [address] [address] February, [place] [address] [place] [id number] [place] [address] 57651- 7654 February, [place] [address] [place] [address] [address]- [address] February, care, first , third trimester Z34.03 and 30 weeks gestation of Z3A.30 [place] [address] [place] [address] 46161- 5449 Jan, Encounter for supervision of normal first in second trimester Z34.02 ; Diabetes mellitus screening Z13.1 ; Screening, iron deficiency anemia Z13.0 and 26 weeks gestation of Z3A.26 [place] [address] [place] [id number] [place] [address] 84279- 2532 Jan, [place] [address] [address]- 64[address] Dec, [place] [address] [place] [id number] [place] [address] 05496- 5781 Dec, [place] [address] [address]- 7167 Dec, Encounter for supervision of normal first in second trimester Z34.02 and 22 weeks gestation of Z3A.22 [place] [address] [address]- 6163 Dec, [place] [address] [address]- 70[address] Dec, Acute upper respiratory infection, unspecified J06.9 and Other viral agents as the cause of diseases classified elsewhere B97.89 [place] [address] [place] [id number] [address] 12 Nov, 2015 Encounter for supervision of normal first in second trimester Z34.02 ; Vaginal candidiasis B37.3 and 18 weeks gestation of Z3A.18 [facility] [address] [place] [address] 38782- 6233 Nov, [facility] [address] [place] [id number] [place] [address] 78222- 1633 Oct, [facility] [address] [place] [id number] [place] [address] 39846- 0613 Oct, [place] [address] 96385- 8756 Oct, Encounter for supervision of normal first in second trimester Z34.02 and 15 weeks gestation of Z3A.15 [place] [address] 45159- 8648 Sep, Encounter for supervision of normal first in first trimester Z34.01 ; Z33.1 and 11 weeks gestation of Z3A.11 [place] [address] [place] [id number] [place] [address] 82372- 3584 Sep, [facility] [id number] [place] [address] Sep [facility] [address] [place] [id number] [place] [address] 02791 -0751 Sep, Encounter for test, result positive Z32.01 [place] [address] [place] [id number] [place] [address] 47487- 5521 Aug, Environmental allergies Z91.09 and Sore throat J02.9 [facility] [address] [place] [id number] [place] [address] 08514- 4574 13 Jul, 2015 Physical exam Z00.00 [facility] [address] [place] [id number] [place] [address] [id number] May, Dental examination V72.2 [facility] [address] [place] [id number] [place] [address] 42753- 4196 Jan, [facility] [address] [place] [address]- 8218 Jan, [facility] [address] [id number] [place] [address]- 3402 Dec, [facility] [address] [id number] [place] [address]- 8403 Dec, [facility] [address] [id number] [place] [address]- 8576 Sep, [facility] [place] [facility] [address] [id number] [place] [address]- 6518 Sep, [facility] [address] [id number] [place] [address]- 3887 Aug, [facility] [place] [facility] [address] [id number] [place] [address]- 0876 Aug, [facility] [address] [id number] [place] [address]- 5019 Jan, [facility] [place] [facility] [address] [id number] [place] [address]- 2681 Jan, [facility] [address] [id number] [place] [address]- 2487 Sep, [facility] [address] [facility] [id number] [place] [address]- 0539 Sep, [facility] [place] [facility] [address] [id number] [place] [address]- 9457 Sep, [facility] [place] [facility] [address] [id number] [place] [address]- 8251 Sep, [facility] [place] [facility] [address] [id number] [place] [address]- 6764 Jan, [facility] [place] [facility] [address] [id number] [place] [address]- 0567 Nov, [facility] [place] [facility] [address] [id number] [place] [address]- 4282 Oct, [facility] [address] [id number] [place] [address]- 7445 Jul, [facility] [address] [id number] [place] [address]- 5136 Jul, [facility] [address] [facility] [id number] [place] [address] 2546 Jul, [facility] [address] [facility] [id number] [place] [address]- 8226 Jul, [facility] [address] [id number] [place] [address]- 2271 Oct, [facility] [address] [facility] [id number] [place] [address]- 9246 Dec, [facility] [address] [facility] [id number] [place] [address]- 8881 Jul, [facility] [address] [facility] [id number] [place] [address]- 6037 May, [facility] [address] [place] [id number] [place] [address]- 5145 Mar, [facility] [address] [facility] [id number] [address]- 0346 Sep, [facility] [address] [place] [id number] [address] 2546 Sep, [facility] [address] [facility] [id number] [address] 2546 Jul, [facility] [address] [facility] [id number] [place] [address]- 4291 Jul, [facility] [address] [facility] [id number] [address]- 1136 February, [facility] [address] [facility] [id number] [address]- 6377 Jan, IMMUNIZATIONS No Known Immunizations SOCIAL HISTORY Never Assessed REASON FOR VISIT test (walk-in)...pt has taken several home tests at home and found out on [place]. here for proof of . nadine, last menstural period was july 15, 2017, ,A1 PLAN OF CARE VITAL SIGNS Height 62.5 in 2017-11-02 Weight 120.8 lbs 2017-11-02 Temperature 98.0 degrees Fahrenheit 2017-11-02 Heart Rate 92 bpm 2017-11-02 Respiratory Rate 20 2017-11-02 BMI 21.74 kg/m2 2017-11-02 Blood pressure systolic 106 mmHg 2017-11-02 Blood pressure diastolic 66 mmHg 2017-11-02 MEDICATIONS Medication Instructions Dosage Frequency Start Date End Date Duration Status Tamiflu 75 MG Orally Twice a day 1 capsule 12h Dec, 5 day(s) Not-Taking TriNessa Lo 0.18/0.215/0.25 MG-25 MCG Orally Once a day 1 tablet 24h May 30 day(s) Not-Taking Vitamins (Dis) Active TriNessa (28) 0.18/0.215/0.25 MG-35 MCG Orally Once a day 1 tablet 24h May, 28 day(s) Not-Taking RESULTS Name Result Date Reference Range TEST, URINE (IN HOUSE) 2017-11-02 RESULTS positive Lot # [id number] Control + Exp date 2018 PROCEDURES Procedure Date Ordered Result Body Site URINE TEST Nov 02, 2017 INSTRUCTIONS MEDICATIONS ADMINISTERED No Known Medications [...]
--- OUTSIDE RECORDS SUMMARY | 2018-06-27 18:53 | XMS REPORT | Continuity of Care Document ---
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 RALPH MD, Ot Z36.89 ENCOUNTER FOR OTHER SPECIFIED 01/08/2018 TESSIE RALPH MD, Ot Z3A.23 23 WEEKS GESTATION OF 03/05/2018 TESSIE RALPH MD, Ot Z34.83 ENCOUNTER FOR SUPRVSN OF NORMAL PREGNANC 03/05/2018 TESSIE RALPH MD, Ot Z3A.31 31 WEEKS GESTATION OF 03/05/2018 APOLINAR COTE APRN Ot 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, UNSPECIFIED 03/05/2018 APOLINAR COTE APRN Ot O99.353 DISEASES OF THE NERVOUS SYS COMP PREGNAN 03/05/2018 APOLINAR COTE APRN Ot O99.513 DISEASES OF THE RESP SYS COMP , 03/05/2018 APOLINAR COTE APRN Ot O99.89 OTH DISEASES AND CONDITIONS COMPL PREG/C 03/05/2018 APOLINAR COTE APRN Ot R06.09 OTHER FORMS OF DYSPNEA 03/05/2018 APOLINAR COTE APRN Ot R07.9 CHEST PAIN, UNSPECIFIED 03/05/2018 APOLINAR COTE APRN Ot Z3A.31 31 WEEKS GESTATION OF 03/05/2018 APOLINAR COTE APRN Ot Z80.49 FAMILY HISTORY OF MALIGNANT NEOPLASM OF 03/05/2018 APOLINAR COTE APRN Ot Z86.73 PRSNL HX OF TIA (TIA), AND CEREB INFRC W 03/05/2018 APOLINAR COET APRN Ot Z90.89 ACQUIRED ABSENCE OF OTHER ORGANS 03/13/2018 APOLINAR COTE APRN Ot 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, UNSPECIFIED 03/13/2018 APOLINAR COTE APRN Ot O99.353 DISEASES OF THE NERVOUS SYS COMP PREGNAN 03/13/2018 APOLINAR COTE APRN Ot O99.513 DISEASES OF THE RESP SYS COMP , 03/13/2018 APOLINAR COTE APRN Ot O99.89 OTH DISEASES AND CONDITIONS COMPL PREG/C 03/13/2018 APOLINAR COTE APRN Ot R06.09 OTHER FORMS OF DYSPNEA 03/13/2018 APOLINAR COTE APRN Ot R07.9 CHEST PAIN, UNSPECIFIED 03/13/2018 APOLINAR COTE APRN Ot Z3A.31 31 WEEKS GESTATION OF 03/13/2018 APOLINAR COTE APRN Ot Z80.49 FAMILY HISTORY OF MALIGNANT NEOPLASM OF 03/13/2018 APOLINAR COTE APRN Ot Z86.73 PRSNL HX OF TIA (TIA), AND CEREB INFRC W 03/13/2018 APOLINAR COTE APRN Ot Z90.89 ACQUIRED ABSENCE OF OTHER ORGANS 03/25/2018 TESSIE RALPH MD, Ot Z34.83 ENCOUNTER FOR SUPRVSN OF NORMAL PREGNANC 03/25/2018 TESSIE RALPH MD, Ot Z3A.31 31 WEEKS GESTATION OF 04/04/2018 NIRMAL BECKMAN MD Ot Z36 ENCOUNTER FOR SCREENING OF MOT 04/04/2018 NIRMAL BECKMAN MD, Ot Z3A.19 19 WEEKS GESTATION OF 04/04/2018 NIRMAL BECKMAN MD Ot Z34.02 ENCNTR FOR SUPRVSN OF NORMAL FIRST PREG, 04/04/2018 NIRMAL BECKMAN MD Ot Z36 ENCOUNTER FOR SCREENING OF MOT 04/13/2018 TESSIE RALPH MD, Ot Z36.89 ENCOUNTER FOR OTHER SPECIFIED 04/13/2018 TESSIE RALPH MD, Ot Z3A.23 23 WEEKS GESTATION OF 04/20/2018 TESSIE RALPH MD, Ot O47.1 FALSE LABOR AT OR AFTER 37 COMPLETED WEE 04/20/2018 TESSIE RALHP MD, Ot Z3A.38 38 WEEKS GESTATION OF 04/23/2018 TESSIE RALPH MD, Ot O62.3 PRECIPITATE LABOR 04/23/2018 TESSIE RALPH MD, Ot O70.0 FIRST DEGREE PERINEAL LACERATION DURING 04/23/2018 TESSIE RALPH MD, Ot Z37.0 SINGLE LIVE 04/23/2018 TESSIE RALPH MD, Ot Z3A.38 38 WEEKS GESTATION OF 04/24/2018 TESSIE RALPH MD, Ot O47.1 FALSE LABOR AT OR AFTER 37 COMPLETED WEE 04/24/2018 TESSIE RALPH MD, Ot3A.38 38 WEEKS GESTATION OF 04/24/2018 TESSIE RALPH MD, Ot O47.1 FALSE LABOR AT OR AFTER 37 COMPLETED WEE 04/24/2018 TESSIE RALPH MD, Ot3A.38 38 WEEKS GESTATION OF 04/26/2018 TESSIE RALPH MD, Ot O47.1 FALSE LABOR AT OR AFTER 37 COMPLETED WEE 04/26/2018 TESSIE RALPH MD, Ot3A.38 38 WEEKS GESTATION OF 04/28/2018 TESSIE RALPH MD, Ot Z34.83 ENCOUNTER FOR SUPRVSN OF NORMAL PREGNANC 04/28/2018 TESSIE RALPH MD, Ot Z3A.31 31 WEEKS GESTATION OF 06/01/2018 TESSIE RALPH MD, Ot Z34.83 ENCOUNTER FOR SUPRVSN OF NORMAL PREGNANC 06/01/2018 TESSIE RALPH MD, Ot3A.31 31 WEEKS GESTATION OF Procedures Code Description [place] [id number] INFLUENZA A & B (IN-HOUSE) 11/03/2012 [id number] STREP A (IN-HOUSE) 09/02/2014 10I8PQA REPOSITION PRODUCTS OF CONCEPTION, EXTER 04/05/2016 [id number] DIVISION OF FEMALE PERINEUM, EXTERNAL AP 04/21/2016 [id number] DELIVERY OF PRODUCTS OF CONCEPTION, EXTE 04/21/2016 [id number] REPAIR PERINEUM SKIN, EXTERNAL APPROACH 04/21/2018 [id number] DELIVERY OF PRODUCTS OF CONCEPTION, EXTE 04/21/2018 Results Test Result Range Complete blood count (CBC) with automated white blood cell (WBC) differential - 09/08/16 19:25 Blood leukocytes automated count (number/volume) 19.7 10*3/uL 4.3-11.0 Blood erythrocytes automated count (number/volume) 4.39 10*6/uL 4.35-5.85 Venous blood hemoglobin measurement (mass/volume) 13.5 g/dL 11.5-16.0 Blood hematocrit (volume fraction) 38 % 35-52 Automated erythrocyte mean corpuscular volume 87 [foz_us] 80-99 Automated erythrocyte mean corpuscular hemoglobin (mass per erythrocyte) 31 pg 25-34 Automated erythrocyte mean corpuscular hemoglobin concentration measurement ( mass/volume) 36 g/dL 32-36 Automated erythrocyte distribution width ratio 12.7 % 10.0-14.5 Automated blood platelet count (count/volume) 224 10*3/uL 130-400 Automated blood platelet mean volume measurement 10.4 [foz_us] 7.4-10.4 Automated blood neutrophils/100 leukocytes 88 % 42-75 Automated blood lymphocytes/100 leukocytes 3 % 12-44 Blood monocytes/100 leukocytes 10 % 0-12 Automated blood eosinophils/100 leukocytes 0 % 0-10 Automated blood basophils/100 leukocytes 0 % 0-10 Blood neutrophils automated count (number/volume) 17.2 10*3 1.8-7.8 Blood lymphocytes automated count (number/volume) 0.5 10*3 1.0-4.0 Blood monocytes automated count (number/volume) 1.9 10*3 0.0-1.0 Automated eosinophil count 0.0 10*3/uL 0.0-0.3 Automated blood basophil count (count/volume) 0.0 10*3/uL 0.0-0.1 Blood manual differential performed detection - 09/08/16 19:25 Blood monocytes/100 leukocytes 4 % NRG Manual blood segmented neutrophils/100 leukocytes 83 % NRG Blood band neutrophils/100 leukocytes 6 % NRG Manual blood lymphocytes/100 leukocytes 6 % NRG Manual eosinophils/100 leukocytes in nose 0 % NRG Manual blood basophils/100 leukocytes 1 % NRG Blood erythrocyte morphology finding identification NORMAL NRG Serum or plasma choriogonadotropin ( test) detection - 09/08/16 19:25 Serum or plasma choriogonadotropin ( test) detection NEGATIVE NEGATIVE Blood lactic acid measurement (moles/volume) - 09/08/16 19:25 Blood lactic acid measurement (moles/volume) 1.2 mmol/L 0.5-2.0 Comprehensive metabolic panel - 09/08/16 19:25 Serum or plasma sodium measurement (moles/volume) 136 mmol/L 135-145 Serum or plasma potassium measurement (moles/volume) 3.2 mmol/L 3.6-5.0 Serum or plasma chloride measurement (moles/volume) 102 mmol/L 98-107 Carbon dioxide 20 mmol/L 21-32 Serum or plasma anion gap determination (moles/volume) 14 mmol/L 5-14 Serum or plasma urea nitrogen measurement (mass/volume) 11 mg/dL 7-18 Serum or plasma creatinine measurement (mass/volume) 0.70 mg/dL 0.60-1.30 Serum or plasma urea nitrogen/creatinine mass ratio 16 NRG Serum or plasma creatinine measurement with calculation of estimated glomerular filtration rate > NRG Serum or plasma glucose measurement (mass/volume) 108 mg/dL 70-105 Serum or plasma calcium measurement (mass/volume) 8.9 mg/dL 8.5-10.1 Serum or plasma total bilirubin measurement (mass/volume) 0.9 mg/dL 0.1-1.0 Serum or plasma alkaline phosphatase measurement (enzymatic activity/volume) 49 U/L 40-136 Serum or plasma aspartate aminotransferase measurement (enzymatic activity/ volume) 17 U/L 5-34 Serum or plasma alanine aminotransferase measurement (enzymatic activity/volume ) 17 U/L 0-55 Serum or plasma protein measurement (mass/volume) 7.6 g/dL 6.4-8.2 Serum or plasma albumin measurement (mass/volume) 4.3 g/dL 3.2-4.5 Serum or plasma amylase measurement (enzymatic activity/volume) - 09/08/16 19: 25 Serum or plasma amylase measurement (enzymatic activity/volume) 37 U /L 25-125 Lipase - 09/08/16 19:25 Lipase 9 U/L 8-78 Bacterial blood culture - 09/08/16 19:25 Bacterial blood culture NG NR Bacterial blood culture - 09/08/16 19:40 FREE TEXT EXTERNAL SEE COMMENTS NRG QUANTITY OF GROWTH Isolated NR Bacterial blood culture [id number] [facility] Complete urinalysis with reflex to culture - 09/08/16 20:12 Urine color determination YELLOW NRG Urine clarity determination SLIGHTLY CLOUDY NR Urine pH measurement by test strip 6 5-9 Specific gravity of urine by test strip 1.010 1.016- 1.022 Urine protein assay by test strip, semi-quantitative 3+ NEGATIVE Urine glucose detection by automated test strip NEGATIVE NEGATIVE Erythrocytes detection in urine sediment by light microscopy 4+ NEGATIVE Urine ketones detection by automated test strip 3+ NEGATIVE Urine nitrite detection by test strip NEGATIVE NEGATIVE Urine total bilirubin detection by test strip NEGATIVE NEGATIVE Urine urobilinogen measurement by automated test strip (mass/volume) 1 mg/dL NORMAL Urine leukocyte esterase detection by dipstick 2+ NEGATIVE Automated urine sediment erythrocyte count by microscopy (number/high power field) [HPF] NRG Automated urine sediment leukocyte count by microscopy (number/high power field ) [HPF] NRG Bacteria detection in urine sediment by light microscopy MODERATE NRG Squamous epithelial cells detection in urine sediment by light microscopy 10-25 NRG Crystals detection in urine sediment by light microscopy NONE NRG Casts detection in urine sediment by light microscopy NONE NRG Mucus detection in urine sediment by light microscopy NEGATIVE NRG Complete urinalysis with reflex to culture YES NRG Bacterial urine culture - 09/08/16 20:12 Bacterial urine culture [id number] NRG COLONY COUNT 10,000/ML - 100,000/ML NRG FTX;REPORTABLE SENSITIVITY REPORTED AT 1631, 09-09-16 NRG Bacterial susceptibility panel - 09/08/16 20:12 Gentamicin susceptibility test by minimum inhibitory concentration < = NRG Trimethoprim/sulfamethoxazole susceptibility test by minimum inhibitoryconcentration <= NRG Ampicillin susceptibility test by minimum inhibitory concentration > = NRG Tobramycin susceptibility test by minimum inhibitory concentration < = NRG Cefazolin susceptibility test by minimum inhibitory concentration < = NRG Ceftriaxone susceptibility test by minimum inhibitory concentration <= NRG Ampicillin/sulbactam susceptibility test by minimum inhibitory concentration 4 NRG Piperacillin/tazobactam susceptibility test by minimum inhibitory concentration <= NRG Ciprofloxacin susceptibility test by minimum inhibitory concentration <= NRG Meropenem susceptibility test by minimum inhibitory concentration < = NRG Nitrofurantoin susceptibility test by minimum inhibitory concentration <= NRG Aztreonam susceptibility test by minimum inhibitory concentration < = NRG Extended spectrum beta lactamase (ESBL) producing bacteria susceptibility test by minimum inhibitory concentration - NRG Complete blood count (CBC) with automated white blood cell (WBC) differential - 09/09/16 05:20 Blood leukocytes automated count (number/volume) 15.9 10*3/uL 4.3-11.0 Blood erythrocytes automated count (number/volume) 3.64 10*6/uL 4.35-5.85 Venous blood hemoglobin measurement (mass/volume) 11.1 g/dL 11.5-16.0 Blood hematocrit (volume fraction) 32 % 35-52 Automated erythrocyte mean corpuscular volume 88 [foz_us] 80-99 Automated erythrocyte mean corpuscular hemoglobin (mass per erythrocyte) 31 pg 25-34 Automated erythrocyte mean corpuscular hemoglobin concentration measurement ( mass/volume) 35 g/dL 32-36 Automated erythrocyte distribution width ratio 12.8 % 10.0-14.5 Automated blood platelet count (count/volume) 166 10*3/uL 130-400 Automated blood platelet mean volume measurement 10.0 [foz_us] 7.4-10.4 Automated blood neutrophils/100 leukocytes 88 % 42-75 Automated blood lymphocytes/100 leukocytes 3 % 12-44 Blood monocytes/100 leukocytes 9 % 0-12 Automated blood eosinophils/100 leukocytes 0 % 0-10 Automated blood basophils/100 leukocytes 0 % 0-10 Blood neutrophils automated count (number/volume) 14.1 10*3 1.8-7.8 Blood lymphocytes automated count (number/volume) 0.5 10*3 1.0-4.0 Blood monocytes automated count (number/volume) 1.4 10*3 0.0-1.0 Automated eosinophil count 0.0 10*3/uL 0.0-0.3 Automated blood basophil count (count/volume) 0.0 10*3/uL 0.0-0.1 Comprehensive metabolic panel - 09/09/16 05:20 Serum or plasma sodium measurement (moles/volume) 139 mmol/L 135-145 Serum or plasma potassium measurement (moles/volume) 3.0 mmol/L 3.6-5.0 Serum or plasma chloride measurement (moles/volume) 108 mmol/L 98-107 Carbon dioxide 23 mmol/L 21-32 Serum or plasma anion gap determination (moles/volume) 8 mmol/L 5-14 Serum or plasma urea nitrogen measurement (mass/volume) 11 mg/dL 7-18 Serum or plasma creatinine measurement (mass/volume) 0.63 mg/dL 0.60-1.30 Serum or plasma urea nitrogen/creatinine mass ratio 17 NRG Serum or plasma creatinine measurement with calculation of estimated glomerular filtration rate > NRG Serum or plasma glucose measurement (mass/volume) 129 mg/dL 70-105 Serum or plasma calcium measurement (mass/volume) 8.2 mg/dL 8.5-10.1 Serum or plasma total bilirubin measurement (mass/volume) 0.7 mg/dL 0.1-1.0 Serum or plasma alkaline phosphatase measurement (enzymatic activity/volume) 37 U/L 40-136 Serum or plasma aspartate aminotransferase measurement (enzymatic activity/ volume) 13 U/L 5-34 Serum or plasma alanine aminotransferase measurement (enzymatic activity/volume ) 13 U/L 0-55 Serum or plasma protein measurement (mass/volume) 6.0 g/dL 6.4-8.2 Serum or plasma albumin measurement (mass/volume) 3.5 g/dL 3.2-4.5 Whole blood basic metabolic panel - 09/10/16 04:40 Serum or plasma sodium measurement (moles/volume) 138 mmol/L 135-145 Serum or plasma potassium measurement (moles/volume) 3.2 mmol/L 3.6-5.0 Serum or plasma chloride measurement (moles/volume) 109 mmol/L 98-107 Carbon dioxide 20 mmol/L 21-32 Serum or plasma anion gap determination (moles/volume) 9 mmol/L 5-14 Serum or plasma urea nitrogen measurement (mass/volume) 5 mg/dL 7-18 Serum or plasma creatinine measurement (mass/volume) 0.53 mg/dL 0.60-1.30 Serum or plasma urea nitrogen/creatinine mass ratio 9 NRG Serum or plasma creatinine measurement with calculation of estimated glomerular filtration rate > NRG Serum or plasma glucose measurement (mass/volume) 122 mg/dL 70-105 Serum or plasma calcium measurement (mass/volume) 8.3 mg/dL 8.5-10.1 Complete blood count (CBC) with automated white blood cell (WBC) differential - 09/10/16 04:40 Blood leukocytes automated count (number/volume) 16.7 10*3/uL 4.3-11.0 Blood erythrocytes automated count (number/volume) 3.33 10*6/uL 4.35-5.85 Venous blood hemoglobin measurement (mass/volume) 10.1 g/dL 11.5-16.0 Blood hematocrit (volume fraction) 30 % 35-52 Automated erythrocyte mean corpuscular volume 89 [foz_us] 80-99 Automated erythrocyte mean corpuscular hemoglobin (mass per erythrocyte) 30 pg 25-34 Automated erythrocyte mean corpuscular hemoglobin concentration measurement ( mass/volume) 34 g/dL 32-36 Automated erythrocyte distribution width ratio 13.1 % 10.0-14.5 Automated blood platelet count (count/volume) 153 10*3/uL 130-400 Automated blood platelet mean volume measurement 11.3 [foz_us] 7.4-10.4 Automated blood neutrophils/100 leukocytes 82 % 42-75 Automated blood lymphocytes/100 leukocytes 7 % 12-44 Blood monocytes/100 leukocytes 11 % 0-12 Automated blood eosinophils/100 leukocytes 0 % 0-10 Automated blood basophils/100 leukocytes 0 % 0-10 Blood neutrophils automated count (number/volume) 13.7 10*3 1.8-7.8 Blood lymphocytes automated count (number/volume) 1.1 10*3 1.0-4.0 Blood monocytes automated count (number/volume) 1.8 10*3 0.0-1.0 Automated eosinophil count 0.0 10*3/uL 0.0-0.3 Automated blood basophil count (count/volume) 0.0 10*3/uL 0.0-0.1 Blood lactic acid measurement (moles/volume) - 09/10/16 10:33 Blood lactic acid measurement (moles/volume) 1.1 mmol/L 0.5-2.0 Bacterial blood culture - 09/10/16 10:33 Bacterial blood culture NG NRG Bacterial blood culture - 09/10/16 10:42 Bacterial blood culture NG NRG Complete blood count (CBC) with automated white blood cell (WBC) differential - 09/11/16 05:00 Blood leukocytes automated count (number/volume) 12.0 10*3/uL 4.3-11.0 Blood erythrocytes automated count (number/volume) 3.32 10*6/uL 4.35-5.85 Venous blood hemoglobin measurement (mass/volume) 10.2 g/dL 11.5-16.0 Blood hematocrit (volume fraction) 30 % 35-52 Automated erythrocyte mean corpuscular volume 89 [foz_us] 80-99 Automated erythrocyte mean corpuscular hemoglobin (mass per erythrocyte) 31 pg 25-34 Automated erythrocyte mean corpuscular hemoglobin concentration measurement ( mass/volume) 35 g/dL 32-36 Automated erythrocyte distribution width ratio 13.4 % 10.0-14.5 Automated blood platelet count (count/volume) 173 10*3/uL 130-400 Automated blood platelet mean volume measurement 11.1 [foz_us] 7.4-10.4 Automated blood neutrophils/100 leukocytes 77 % 42-75 Automated blood lymphocytes/100 leukocytes 14 % 12-44 Blood monocytes/100 leukocytes 10 % 0-12 Automated blood eosinophils/100 leukocytes 0 % 0-10 Automated blood basophils/100 leukocytes 0 % 0-10 Blood neutrophils automated count (number/volume) 9.2 10*3 1.8-7.8 Blood lymphocytes automated count (number/volume) 1.6 10*3 1.0-4.0 Blood monocytes automated count (number/volume) 1.2 10*3 0.0-1.0 Automated eosinophil count 0.0 10*3/uL 0.0-0.3 Automated blood basophil count (count/volume) 0.0 10*3/uL 0.0-0.1 Whole blood basic metabolic panel - 09/11/16 05:00 Serum or plasma sodium measurement (moles/volume) 140 mmol/L 135-145 Serum or plasma potassium measurement (moles/volume) 3.4 mmol/L 3.6-5.0 Serum or plasma chloride measurement (moles/volume) 109 mmol/L 98-107 Carbon dioxide 23 mmol/L 21-32 Serum or plasma anion gap determination (moles/volume) 8 mmol/L 5-14 Serum or plasma urea nitrogen measurement (mass/volume) 3 mg/dL 7-18 Serum or plasma creatinine measurement (mass/volume) 0.53 mg/dL 0.60-1.30 Serum or plasma urea nitrogen/creatinine mass ratio 6 NRG Serum or plasma creatinine measurement with calculation of estimated glomerular filtration rate > NRG Serum or plasma glucose measurement (mass/volume) 113 mg/dL 70-105 Serum or plasma calcium measurement (mass/volume) 8.3 mg/dL 8.5-10.1 Complete blood count (CBC) with automated white blood cell (WBC) differential - 09/12/16 05:38 Blood leukocytes automated count (number/volume) 7.5 10*3/uL 4.3-11.0 Blood erythrocytes automated count (number/volume) 3.31 10*6/uL 4.35-5.85 Venous blood hemoglobin measurement (mass/volume) 10.0 g/dL 11.5-16.0 Blood hematocrit (volume fraction) 29 % 35-52 Automated erythrocyte mean corpuscular volume 89 [foz_us] 80-99 Automated erythrocyte mean corpuscular hemoglobin (mass per erythrocyte) 30 pg 25-34 Automated erythrocyte mean corpuscular hemoglobin concentration measurement ( mass/volume) 34 g/dL 32-36 Automated erythrocyte distribution width ratio 13.3 % 10.0-14.5 Automated blood platelet count (count/volume) 182 10*3/uL 130-400 Automated blood platelet mean volume measurement 10.5 [foz_us] 7.4-10.4 Automated blood neutrophils/100 leukocytes 66 % 42-75 Automated blood lymphocytes/100 leukocytes 18 % 12-44 Blood monocytes/100 leukocytes 15 % 0-12 Automated blood eosinophils/100 leukocytes 1 % 0-10 Automated blood basophils/100 leukocytes 0 % 0-10 Blood neutrophils automated count (number/volume) 5.0 10*3 1.8-7.8 Blood lymphocytes automated count (number/volume) 1.4 10*3 1.0-4.0 Blood monocytes automated count (number/volume) 1.1 10*3 0.0-1.0 Automated eosinophil count 0.1 10*3/uL 0.0-0.3 Automated blood basophil count (count/volume) 0.0 10*3/uL 0.0-0.1 Whole blood basic metabolic panel - 09/12/16 05:38 Serum or plasma sodium measurement (moles/volume) 141 mmol/L 135-145 Serum or plasma potassium measurement (moles/volume) 3.3 mmol/L 3.6-5.0 Serum or plasma chloride measurement (moles/volume) 110 mmol/L 98-107 Carbon dioxide 22 mmol/L 21-32 Serum or plasma anion gap determination (moles/volume) 9 mmol/L 5-14 Serum or plasma urea nitrogen measurement (mass/volume) 4 mg/dL 7-18 Serum or plasma creatinine measurement (mass/volume) 0.50 mg/dL 0.60-1.30 Serum or plasma urea nitrogen/creatinine mass ratio 8 NRG Serum or plasma creatinine measurement with calculation of estimated glomerular filtration rate > NRG Serum or plasma glucose measurement (mass/volume) 92 mg/dL 70-105 Serum or plasma calcium measurement (mass/volume) 8.5 mg/dL 8.5-10.1 CBC With Differential/Platelet - 05/07/17 16:20 WBC 6.9 x10E3/uL 3.4-10.8 RBC 3.99 x10E6/uL 3.77-5.28 Hemoglobin 12.3 g/dL 11.1-15.9 Hematocrit 36.3 % 34.0-46.6 MCV 91 fL 79-97 MCH 30.8 pg 26.6-33.0 MCHC 33.9 g/dL 31.5-35.7 RDW 13.3 % 12.3-15.4 Platelets 285 x10E3/uL 150-379 Neutrophils 65 % Lymphs 27 % Monocytes 6 % Eos 1 % Basos 1 % Neutrophils (Absolute) 4.5 x10E3/uL 1.4-7.0 Lymphs (Absolute) 1.8 x10E3/uL 0.7-3.1 Monocytes(Absolute) 0.4 x10E3/uL 0.1-0.9 Eos (Absolute) 0.1 x10E3/uL 0.0-0.4 Baso (Absolute) 0.1 x10E3/uL 0.0-0.2 Immature Granulocytes 0 % Immature Grans (Abs) 0.0 x10E3/uL 0.0-0.1 TSH - 05/07/17 16:20 TSH 0.801 uIU/mL 0.450-4.500 Rubella Antibodies, IgG - 05/07/17 16:20 Rubella Antibodies, IgG 2.21 index Immune >0.99 Antibody Screen - 05/07/17 16:20 Antibody Screen Negative Negative Urine Culture, Routine - 05/07/17 16:20 Urine Culture, Routine Note Genital Culture, Routine - 05/07/17 16:20 Genital Culture, Routine Note Complete blood count (CBC) with automated white blood cell (WBC) differential - 05/16/17 12:20 Blood leukocytes automated count (number/volume) 8.9 10*3/uL 4.3-11.0 Blood erythrocytes automated count (number/volume) 4.22 10*6/uL 4.35-5.85 Venous blood hemoglobin measurement (mass/volume) 13.0 g/dL 11.5-16.0 Blood hematocrit (volume fraction) 38 % 35-52 Automated erythrocyte mean corpuscular volume 90 [foz_us] 80-99 Automated erythrocyte mean corpuscular hemoglobin (mass per erythrocyte) 31 pg 25-34 Automated erythrocyte mean corpuscular hemoglobin concentration measurement ( mass/volume) 34 g/dL 32-36 Automated erythrocyte distribution width ratio 13.2 % 10.0-14.5 Automated blood platelet count (count/volume) 230 10*3/uL 130-400 Automated blood platelet mean volume measurement 10.2 [foz_us] 7.4-10.4 Automated blood neutrophils/100 leukocytes 76 % 42-75 Automated blood lymphocytes/100 leukocytes 16 % 12-44 Blood monocytes/100 leukocytes 6 % 0-12 Automated blood eosinophils/100 leukocytes 1 % 0-10 Automated blood basophils/100 leukocytes 0 % 0-10 Blood neutrophils automated count (number/volume) 6.7 10*3 1.8-7.8 Blood lymphocytes automated count (number/volume) 1.4 10*3 1.0-4.0 Blood monocytes automated count (number/volume) 0.6 10*3 0.0-1.0 Automated eosinophil count 0.1 10*3/uL 0.0-0.3 Automated blood basophil count (count/volume) 0.0 10*3/uL 0.0-0.1 ABO+Rh group - 05/16/17 12:20 ABO+Rh group BP NRG Serum or plasma choriogonadotropin measurement (units/volume) - 05/16/17 12:20 Serum or plasma choriogonadotropin measurement (units/volume) 4231 m [iU]/mL <5 CULTURE, GENITAL - 11/12/17 15:18 CULTURE, GENITAL SEE NOTE NRG Complete blood count (CBC) with automated white blood cell (WBC) differential - 03/05/18 20:38 Blood leukocytes automated count (number/volume) 10.8 10*3/uL 4.3-11.0 Blood erythrocytes automated count (number/volume) 3.72 10*6/uL 4.35-5.85 Venous blood hemoglobin measurement (mass/volume) 12.3 g/dL 11.5-16.0 Blood hematocrit (volume fraction) 34 % 35-52 Automated erythrocyte mean corpuscular volume 92 [foz_us] 80-99 Automated erythrocyte mean corpuscular hemoglobin (mass per erythrocyte) 33 pg 25-34 Automated erythrocyte mean corpuscular hemoglobin concentration measurement ( mass/volume) 36 g/dL 32-36 Automated erythrocyte distribution width ratio 13.2 % 10.0-14.5 Automated blood platelet count (count/volume) 198 10*3/uL 130-400 Automated blood platelet mean volume measurement 9.8 [foz_us] 7.4-10.4 Automated blood neutrophils/100 leukocytes 79 % 42-75 Automated blood lymphocytes/100 leukocytes 14 % 12-44 Blood monocytes/100 leukocytes 8 % 0-12 Automated blood eosinophils/100 leukocytes 0 % 0-10 Automated blood basophils/100 leukocytes 0 % 0-10 Blood neutrophils automated count (number/volume) 8.5 10*3 1.8-7.8 Blood lymphocytes automated count (number/volume) 1.5 10*3 1.0-4.0 Blood monocytes automated count (number/volume) 0.8 10*3 0.0-1.0 Automated eosinophil count 0.0 10*3/uL 0.0-0.3 Automated blood basophil count (count/volume) 0.0 10*3/uL 0.0-0.1 Comprehensive metabolic panel - 03/05/18 20:38 Serum or plasma sodium measurement (moles/volume) 136 mmol/L 135-145 Serum or plasma potassium measurement (moles/volume) 3.4 mmol/L 3.6-5.0 Serum or plasma chloride measurement (moles/volume) 107 mmol/L 98-107 Carbon dioxide 18 mmol/L 21-32 Serum or plasma anion gap determination (moles/volume) 11 mmol/L 5-14 Serum or plasma urea nitrogen measurement (mass/volume) 6 mg/dL 7-18 Serum or plasma creatinine measurement (mass/volume) 0.55 mg/dL 0.60-1.30 Serum or plasma urea nitrogen/creatinine mass ratio 11 NRG Serum or plasma creatinine measurement with calculation of estimated glomerular filtration rate > NRG Serum or plasma glucose measurement (mass/volume) 134 mg/dL 70-105 Serum or plasma calcium measurement (mass/volume) 8.8 mg/dL 8.5-10.1 Serum or plasma total bilirubin measurement (mass/volume) 0.5 mg/dL 0.1-1.0 Serum or plasma alkaline phosphatase measurement (enzymatic activity/volume) 65 U/L 40-136 Serum or plasma aspartate aminotransferase measurement (enzymatic activity/ volume) 13 U/L 5-34 Serum or plasma alanine aminotransferase measurement (enzymatic activity/volume ) 13 U/L 0-55 Serum or plasma protein measurement (mass/volume) 7.0 g/dL 6.4-8.2 Serum or plasma albumin measurement (mass/volume) 3.7 g/dL 3.2-4.5 Serum or plasma lithium measurement (moles/volume) - 03/05/18 20:38 BNP level 45.4 pg/mL <100.0 Complete urinalysis with reflex to culture - 03/05/18 20:50 Urine color determination YELLOW NRG Urine clarity determination SLIGHTLY CLOUDY NRG Urine pH measurement by test strip 7 5-9 Specific gravity of urine by test strip 1.010 1.016- 1.022 Urine protein assay by test strip, semi-quantitative NEGATIVE NEGATIVE Urine glucose detection by automated test strip 3+ NEGATIVE Erythrocytes detection in urine sediment by light microscopy NEGATIVE NEGATIVE Urine ketones detection by automated test strip NEGATIVE NEGATIVE Urine nitrite detection by test strip NEGATIVE NEGATIVE Urine total bilirubin detection by test strip NEGATIVE NEGATIVE Urine urobilinogen measurement by automated test strip (mass/volume) NORMAL NORMAL Urine leukocyte esterase detection by dipstick 1+ NEGATIVE Automated urine sediment erythrocyte count by microscopy (number/high power field) NONE NRG Automated urine sediment leukocyte count by microscopy (number/high power field ) [HPF] NRG Bacteria detection in urine sediment by light microscopy TRACE NRG Squamous epithelial cells detection in urine sediment by light microscopy 2-5 NRG Crystals detection in urine sediment by light microscopy NONE NRG Casts detection in urine sediment by light microscopy NONE NRG Mucus detection in urine sediment by light microscopy NEGATIVE NRG Complete urinalysis with reflex to culture NO NRG CULTURE, GROUP B STREP (VAGINAL) - 04/01/18 17:24 STREPTOCOCCUS, GROUP B CULTURE SEE NOTE NRG Complete urinalysis with reflex to culture - 04/20/18 21:55 Urine color determination YELLOW NRG Urine clarity determination CLEAR NRG Urine pH measurement by test strip 7 5-9 Specific gravity of urine by test strip 1.010 1.016- 1.022 Urine protein assay by test strip, semi-quantitative NEGATIVE NEGATIVE Urine glucose detection by automated test strip NEGATIVE NEGATIVE Erythrocytes detection in urine sediment by light microscopy NEGATIVE NEGATIVE Urine ketones detection by automated test strip 3+ NEGATIVE Urine nitrite detection by test strip NEGATIVE NEGATIVE Urine total bilirubin detection by test strip NEGATIVE NEGATIVE Urine urobilinogen measurement by automated test strip (mass/volume) NORMAL NORMAL Urine leukocyte esterase detection by dipstick 3+ NEGATIVE Automated urine sediment erythrocyte count by microscopy (number/high power field) NONE NRG Automated urine sediment leukocyte count by microscopy (number/high power field ) [HPF] NRG Bacteria detection in urine sediment by light microscopy FEW NRG Squamous epithelial cells detection in urine sediment by light microscopy 5-10 NRG Crystals detection in urine sediment by light microscopy NONE NRG Casts detection in urine sediment by light microscopy NONE NRG Mucus detection in urine sediment by light microscopy NEGATIVE NRG Complete urinalysis with reflex to culture YES NRG Bacterial urine culture - 04/20/18 21:55 Bacterial urine culture SEE COMMEN NRG COLONY COUNT . NRG Complete blood count (CBC) with automated white blood cell (WBC) differential - 04/22/18 05:15 Blood leukocytes automated count (number/volume) 16.5 10*3/uL 4.3-11.0 Blood erythrocytes automated count (number/volume) 3.57 10*6/uL 4.35-5.85 Venous blood hemoglobin measurement (mass/volume) 11.8 g/dL 11.5-16.0 Blood hematocrit (volume fraction) 33 % 35-52 Automated erythrocyte mean corpuscular volume 92 [foz_us] 80-99 Automated erythrocyte mean corpuscular hemoglobin (mass per erythrocyte) 33 pg 25-34 Automated erythrocyte mean corpuscular hemoglobin concentration measurement ( mass/volume) 36 g/dL 32-36 Automated erythrocyte distribution width ratio 13.1 % 10.0-14.5 Automated blood platelet count (count/volume) 186 10*3/uL 130-400 Automated blood platelet mean volume measurement 10.7 [foz_us] 7.4-10.4 Automated blood neutrophils/100 leukocytes 83 % 42-75 Automated blood lymphocytes/100 leukocytes 8 % 12-44 Blood monocytes/100 leukocytes 9 % 0-12 Automated blood eosinophils/100 leukocytes 0 % 0-10 Automated blood basophils/100 leukocytes 0 % 0-10 Blood neutrophils automated count (number/volume) 13.6 10*3 1.8-7.8 Blood lymphocytes automated count (number/volume) 1.4 10*3 1.0-4.0 Blood monocytes automated count (number/volume) 1.4 10*3 0.0-1.0 Automated eosinophil count 0.0 10*3/uL 0.0-0.3 Automated blood basophil count (count/volume) 0.0 10*3/uL 0.0-0.1 Blood type T Indirect antibody screen panel - 04/22/18 05:15 ABO+Rh group BP NRG Transfusion band number [id number] NRG Blood group antibody screen NEGATIVE NRG Encounters ACCT No. Visit Date/Time Discharge Status Pt. Type Provider Facility Loc./Unit Complaint [id number] 09/19/2014 14:09:00 09/19/2014 23:59:59 CLS Outpatient ASCENCION CAPELLAN APRN [place] [id number] 09/02/2014 13:15:00 09/02/2014 23:59:59 CLS Outpatient ASCENCION CAPELLAN APRN [place] [id number] 02/08/2014 10:53:00 02/08/2014 23:59:59 CLS Outpatient ALHAJI NUR APRN [place] [id number] 09/17/2013 14:44:00 09/17/2013 23:59:59 CLS Outpatient NATHAN CROWLEY MD [id number] 09/13/2013 10:01:00 09/13/2013 23:59:59 CLS Outpatient SOUTH ARTIS APRN [place] [id number] 11/16/2012 14:58:00 11/16/2012 23:59:59 CLS Outpatient [id number] 11/03/2012 15:19:00 11/03/2012 23:59:59 CLS Outpatient [id number] 02/09/2013 15:30:00 Document Registration [id number] 05/08/2017 16:07:00 Document Registration [id number] 05/09/2017 04:06:00 Document Registration [id number] 05/11/2017 08:35:00 Document Registration [id number] 03/17/2015 05:23:04 ACT Document Registration [id number] 04/08/2018 13:30:00 04/08/2018 23:59:59 CLS Outpatient NOHEMY [facility] [id number] 04/01/2018 15:15:00 Document Registration [id number] 11/12/2017 14:15:00 Document Registration [id number] 04/21/2018 22:38:00 04/23/2018 15:10:00 DIS Inpatient TESSIE RALPH MD [facility] LDRP LABOR [id number] 04/20/2018 21:43:00 04/20/2018 23:15:00 DIS Outpatient TESSIE RALPH MD [facility] WSo CONTRACTIONS [id number] 03/05/2018 20:14:00 03/05/2018 21:44:00 DIS Emergency APOLINAR COTE APRN [facility] ER CHEST PAIN [id number] 03/04/2018 11:21:00 03/04/2018 23:59:59 CLS Outpatient TESSIE RALPH MD [facility] RAD NORMAL IN MULTIGRAVIDA [id number] 01/07/2018 12:54:00 01/07/2018 23:59:59 CLS Outpatient TESSIE RALPH MD [facility] RAD Z34.02 NORMAL FIRST [id number] 11/19/2017 15:00:00 11/19/2017 23:59:59 CLS Outpatient TESSIE RALPH MD [facility] RAD NORMAL IN MULTIGRAVIDA [id number] 05/16/2017 11:38:00 05/16/2017 13:07:00 DIS Emergency APOLINAR COTE BUTTONHOLE MARKER [facility] ER CRAMPING/BLEEDING/11WKS PREG [id number] 05/08/2017 10:47:00 05/08/2017 23:59:59 CLS Preadmit TESSIE RALPH MD [facility] RAD 9 WKS OF GESTATION OF [id number] 09/08/2016 21:11:00 09/12/2016 16:20:00 DIS Inpatient TESSIE RALPH MD [facility] 4TH PYELONEPHRITIS [id number] 04/20/2016 17:25:00 04/22/2016 17:45:00 DIS Inpatient TESSIE RALPH MD [facility] LDRP LABOR [id number] 04/15/2016 23:09:00 04/16/2016 00:55:00 DIS Outpatient NIRMAL BECKMAN MD [facility] ABD PAIN [id number] 04/12/2016 10:10:00 04/12/2016 11:05:00 DIS Outpatient VERONA HUI DO [facility] POSS LOST MUCUS PLUG 38 WKS PREG [id number] 04/10/2016 15:51:00 04/10/2016 17:00:00 DIS Outpatient NIRMAL BECKMAN MD [facility] CONTRACTIONS [id number] 04/08/2016 11:58:00 04/08/2016 18:30:00 DIS Outpatient NIRMAL BECKMAN MD [facility] ABD/BACK PAIN 38 WKS PREG [id number] 04/05/2016 12:05:00 04/05/2016 18:30:00 DIS Inpatient TALYA CHAVIS MD [facility] LDRP BREECH PRESENTATION [id number] 03/06/2016 23:14:00 03/07/2016 01:22:00 DIS Outpatient HUI DO, VERONA K [facility] LAB RT SIDE PAIN,33 WKS PREG [id number] 01/05/2016 10:01:00 01/05/2016 23:59:59 CLS Outpatient NIRMAL BECKMAN MD [facility] RAD POOR VISUALIZATION OF SPINE [id number] 12/05/2015 13:11:00 12/05/2015 23:59:59 CLS Outpatient NIRMAL BECKMAN MD [facility] RAD ANATOMY [id number] 03/16/2015 14:47:00 03/16/2015 18:21:00 DIS Emergency KEO PEREZ, TONIA Ingram [facility] ER FELL HIT HEAD [id number] 10/12/2013 12:16:00 10/12/2013 14:30:00 DIS Emergency FRANKLIN PEREZ, ERA Pimentel [facility] ER ABD PAIN [id number] 06/27/2018 18:39:00 ACT Emergency ANKUR PEREZ, NASREEN Alcala [facility] ER BACK PAIN [id number] 11/14/2017 05:35:00 Document Registration [id number] 11/14/2017 05:35:00 Document Registration [id number] 11/14/2017 05:35:00 Document Registration [id number] 03/16/2015 14:47:00 Document Registration [id number] 10/26/2012 21:14:00 Document Registration [id number] 08/26/2010 19:51:00 Document Registration [id number] 07/20/2010 09:47:00 Document Registration [id number] 07/15/2010 17:40:00 Document Registration [id number] 02/02/2010 13:47:00 Document Registration
[2018-06-27] MEDS ORDERED: CITA10TA7 (18:56)
--- NOTE | 2018-06-27 19:09 | ED Back Pain ---
General Chief Complaint: Back Problems Stated Complaint: BACK PAIN Source of Information: Patient Exam Limitations: No Limitations History of Present Illness Date Seen by Provider: Jun 27, 2018 Time Seen by Provider: 18:59 Initial Comments Patient the past one day has had some low back pain radiating both sides and around the left more than right. Today started radiating around her front. She was sleeping in around 4:00 this morning when she started feeling chills and couldn't get warm enough to matter what. She does not own a thermometer. She does not take any Tylenol or Motrin. She has never had kidney stones before. No painful urination or discharge. Last menstrual period was last week she said she bled for 2 weeks. Allergies and Home Medications Allergies Coded Allergies: NKANo Known Allergies (Verified Allergy, Mild, 04/20/18) peach (Unverified Allergy, Unknown, 04/22/16) FROM UNCODED ALLERGIES Home Medications Vit W-Ca,Fe,FA(<1 mg) 1 Each Tablet, 1 EACH PO DAILY, (Reported) Patient Home Medication List Home Medication List Reviewed: Yes Review of Systems Constitutional: chills, fever, malaise EENTM: No ear pain, No eye pain Respiratory: No cough, No short of breath Cardiovascular: No chest pain Gastrointestinal: abdominal pain; No constipation, No diarrhea, No nausea, No vomiting Genitourinary: No decreased output, No dysuria : No Musculoskeletal: see HPI, back pain Past Ggmvnlc-Zadyic-Hizfae Hx Patient Social History Alcohol Use: Occasionally Uses Alcohol Beverage of Choice: Beer Recreational Drug Use: No Smoking Status: Never a Smoker Recent Foreign Travel: No Contact w/Someone Who Travel: No Recent Hopitalizations: No Immunizations Up To Date Tetanus Booster (TDap): Less than 5yrs PED Vaccines UTD: Yes Seasonal Allergies Seasonal Allergies: No Past Medical History Surgeries: Yes (REPAIR OF ASD/VSD, MUSCULOSKELETAL SURGERY TO STRAIGHTEN LEFT ARM) Adenoidectomy, Cardiac, Tonsillectomy Respiratory: No Cardiac: Yes (ASD and VSD REPAIRED) Congenital Heart Disease 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) Cerebral Palsy, Stroke Reproductive Disorders: No Female Reproductive Disorders: Denies Sexually Transmitted Disease: No HIV/AIDS: No Gastrointestinal: No Musculoskeletal: No Endocrine: No HEENT: No Cancer: No Psychosocial: No Integumentary: No Blood Disorders: No Adverse Reaction/Blood Tranf: No Family Medical History Asthma (FATHER) Cervical cancer 19 MOTHER Diabetes mellitus (PGM MGF) FH: cancer (FATHER MGF) FH: heart disease (MGM PGM MGF PGF BROTHER) FH: stroke (MGM) Hypertension (FATHER PGM MGF PGF) Osteoporosis (FATHER) Tetralogy of Fallot (BROTHER) Physical Exam Vital Signs Vital Signs - First Documented 06/27/18 18:50 Temp 100.9 Pulse 78 Resp 16 B/P (MAP) 105/51 (69) Pulse Ox 100 O2 Delivery Room Air Capillary Refill : Height, Weight, BMI Height: 5'2.00" Weight: 139lbs. 4.0oz. 63.022568pl; 25.5 BMI Method:Stated General Appearance: WD/WN, Mild Distress HEENT: PERRL/EOMI, Pharynx Normal, Moist Mucous Membranes Neck: Full Range of Motion, Normal Inspection Cardiovascular: Regular Rate, Rhythm, Normal Peripheral Pulses Respiratory: Chest Non Tender, Lungs Clear, Normal Breath Sounds Gastrointestinal: Normal Bowel Sounds, Soft, Tenderness (Epigastric and left upper quadrant) Back: Normal Inspection, No Vertebral Tenderness, CVA Tenderness (L); No CVA Tenderness (R) Extremity: Normal Capillary Refill, No Pedal Edema Neurologic/Psychiatric: Alert, Oriented x3, No Motor/Sensory Deficits Progress/Results/Core Measures Results/Orders Lab Results Laboratory Tests Test 06/27/18 18:54 Range/Units Urine Color YELLOW Urine Clarity SLIGHTLY CLOUDY Urine pH 6 5-9 Urine Specific [place] 1.015 L 1.016-1.022 Urine Protein 2+ H NEGATIVE Urine Glucose (UA) NEGATIVE NEGATIVE Urine Ketones 1+ H NEGATIVE Urine Nitrite NEGATIVE NEGATIVE Urine Bilirubin NEGATIVE NEGATIVE Urine Urobilinogen NORMAL NORMAL MG/DL Urine Leukocyte Esterase 3+ H NEGATIVE Urine RBC (Auto) 5+ H NEGATIVE Urine RBC 25-50 H /HPF Urine WBC >100 H /HPF Urine Squamous Epithelial Cells 10-25 H /HPF Urine Crystals NONE /LPF Urine Bacteria MODERATE H /HPF Urine Casts NONE /LPF Urine Mucus NEGATIVE /LPF Urine Culture Indicated YES Urine Test NEGATIVE NEGATIVE My Orders Orders - NASREEN PASCUAL Ua Culture If Indicated (06/27/18 19:04) Hcg,Qualitative Urine (06/27/18 19:04) Ibuprofen Tablet (Motrin Tablet) (06/27/18 19:15) Urine Culture (06/27/18 18:54) Ct Abd/Pelvis Wo(Kidney Stone) (06/27/18 21:00) Acetaminophen Tablet (Tylenol Tablet) (06/27/18 21:00) Ceftriaxone For Im Use (Rocephin For Im (06/27/18 21:18) Ceftriaxone For Iv Use (Rocephin For I (06/27/18 21:26) Medications Given in ED Current Medications Medications Dose Ordered Sig/Micheal Route Start Time Stop Time Status Last Admin Dose Admin Acetaminophen 1,000 mg ONCE ONCE PO 06/27/18 21:00 06/27/18 21:02 DC 06/27/18 21:30 1,000 MG Ibuprofen 800 mg ONCE ONCE PO 06/27/18 19:15 06/27/18 19:16 DC 06/27/18 19:12 800 MG Vital Signs/I&O 06/27/18 06/27/18 18:50 19:12 Temp 100.9 100.9 Pulse 78 Resp 16 B/P (MAP) 105/51 (69) Pulse Ox 100 O2 Delivery Room Air Progress Progress Note : Time: 19:09 Progress Note UA and U . If she has new blood in the urine will check CT. She would prefer pills give her ibuprofen 800 mg. Diagnostic Imaging Diagonstic Imaging: CT Plain Films/CT/US/NM/MRI: abdomen, pelvis Comments VIA [facility] [place], [place] NAME: MANAN CONTRERAS [facility] REC#: [id number] PT STATUS: REG ER : 1995 PHYSICIAN: NASREEN PASCUAL MD ADMIT DATE: 06/27/18/ER Draft Date of Exam:06/27/18 CT ABD/PELVIS WO(KIDNEY STONE) PROCEDURE: CT urinary tract, rule out kidney stone. TECHNIQUE: Multiple contiguous axial images were obtained through the abdomen and pelvis without the use of intravenous contrast. INDICATION: Low back pain of one-day duration. No known injury. COMPARISON: 09/08/2016. FINDINGS: There are no opaque kidney stones and there is no hydroureteronephrosis. The unopacified urinary bladder has an unremarkable appearance. There is a minute amount of free fluid in the pelvic cul-de-sac which is a common physiologic finding in female patient's of this age. The air-containing appendix is unremarkable. There is no diverticulitis. The liver, gallbladder, spleen, adrenals and pancreas are unremarkable. The aorta is nonaneurysmal. There is no small or large bowel obstruction. There is no pneumatosis or free gas. There is no focal inflammatory process and no acute abdominal wall defect or fluid collection. There is a small fatty umbilical hernia. There are findings of questionable edema and infiltration of the fat adjacent to the upper pole of the left kidney. No fluid collection. IMPRESSION: Questionable findings for mild inflammatory infiltration of the retroperitoneal fat just above the upper pole cortex of the left kidney. This is a borderline finding and no convincing acute pathology is evident. Small likely physiologic free fluid. Unobstructed urinary tracts. Normal appendix. No hepatobiliary abnormality. Dictated on workstation # [id number] Dict: 06/27/182123 Trans: 06/27/182133 [facility] [id number] Interpreted by: JOHN MENA Electronically signed by: Reviewed: Reviewed by Me Departure Impression Primary Impression: UTI (urinary tract infection) Qualified Codes: N30.01 - Acute cystitis with hematuria Disposition: HOME, SELF-CARE Condition: Stable Departure-Patient Inst. Decision time for Depature: 22:19 Referrals: TESSIE RALPH MD (PCP/Family) Primary Care Physician Patient Instructions: Acute Cystitis (DC) Add. Discharge Instructions: Drink lots of fluids and hand picker the Keflex take one capsule twice a day for the next 7 days. Follow-up with her primary care provider if you're not seeing some improvement in day 3 or 4. All discharge instructions reviewed with patient and/or family. Voiced understanding. Scripts Cephalexin (Cephalexin) 500 Mg Tablet 500 MG PO BID for 7 Days, #14 TAB 0 Refills Prov: NASREEN PASCUAL 06/27/18 Work/School Note: Work Release Form Date Seen in the Emergency Department: Jun 27, 2018 Return to Work: Jun 28, 2018 Restrictions: No Restrictions NASREEN PASCUAL Jun 27, 2018 19:09
[2018-06-27 19:13] LABS: BILIRUBIN,URINE NEGATIVE (NEGATIVE); CLARITY,URINE SLIGHTLY CLOUDY; COLOR,URINE YELLOW; GLUCOSE, URINE (UA) NEGATIVE (NEGATIVE); KETONES,URINE 1+ (NEGATIVE); LEUKOCYTE ESTERASE ,URINE 3+ (NEGATIVE); NITRITE,URINE NEGATIVE (NEGATIVE); PH,URINE 6 (5-9); PROTEIN,URINE 2+ (NEGATIVE); UROBILINOGEN,URINE NORMAL (NORMAL)
[2018-06-27] MEDS ORDERED: IBUPROFEN 800 MG (MOTRIN) TAB PO ONE (19:15)
[2018-06-27 19:31] LABS: BACTERIA,URINE MODERATE /HPF; RBC,URINE 25-50 /HPF; WBC,URINE >100 /HPF
[2018-06-27] MEDS ORDERED: ACETAMINOPHEN 500 MG TAB (TYLENOL) PO ONE (21:00)
[2018-06-27] MEDS ORDERED: cefTRIAXone 1,000 MG/2.86 ml vial (IM ONLY) IM STA (21:18)
[2018-06-27] MEDS ORDERED: cefTRIAXone 1 GM/10 ML for IV (ROCEPHIN) ONE (21:26)
--- NOTE | 2018-06-27 21:34 | Diagnostic Imaging Report ---
PROCEDURE: CT urinary tract, rule out kidney stone. TECHNIQUE: Multiple contiguous axial images were obtained through the abdomen and pelvis without the use of intravenous contrast. INDICATION: Low back pain of one-day duration. No known injury. COMPARISON: 09/08/2016. FINDINGS: There are no opaque kidney stones and there is no hydroureteronephrosis. The unopacified urinary bladder has an unremarkable appearance. There is a minute amount of free fluid in the pelvic cul-de-sac which is a common physiologic finding in female patient's of this age. The air-containing appendix is unremarkable. There is no diverticulitis. The liver, gallbladder, spleen, adrenals and pancreas are unremarkable. The aorta is nonaneurysmal. There is no small or large bowel obstruction. There is no pneumatosis or free gas. There is no focal inflammatory process and no acute abdominal wall defect or fluid collection. There is a small fatty umbilical hernia. There are findings of questionable edema and infiltration of the fat adjacent to the upper pole of the left kidney. No fluid collection. IMPRESSION: Questionable findings for mild inflammatory infiltration of the retroperitoneal fat just above the upper pole cortex of the left kidney. This is a borderline finding and no convincing acute pathology is evident. Small likely physiologic free fluid. Unobstructed urinary tracts. Normal appendix. No hepatobiliary abnormality. Dictated by: Dictated on workstation # [id number]
[2018-06-27] MEDS ORDERED: CEPH500T PO (22:20)
[2018-06-27 22:27] VITALS: BP 102/56
== END 2018-06-27 22:27 | disposition home or self-care (01) ==
LOC: EDUNIT# 18:38 → ER 18:39
DX: N39.0 Urinary tract infection, site not specified (principal); M54.5 Low back pain; Z90.89 Acquired absence of other organs; Z86.73 Personal history of transient ischemic attack (TIA), and cerebral infarction without residual deficits; Z80.49 Family history of malignant neoplasm of other genital organs; Z82.49 Family history of ischemic heart disease and other diseases of the circulatory system
CPT/HCPCS: 74176; 81000; 84703; 87077; 87088; 87186; 96372

== ENCOUNTER 2019-10-10 23:21 | Emergency (ER) | payer MEDICAID, OTHER ==
[~2019-10-10] VITALS: Ht 157 cm; Wt 59.1 kg
[~2019-10-10 23:21] MED LIST changes: +CEPH500T PO; +CITA10TA7; -NORG1TAB7 PO; +NORG1TAB87 PO
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
[2019-10-11 00:26] VITALS: BP 136/78
== END 2019-10-11 00:26 | disposition home or self-care (01) ==
LOC: EDUNIT# 23:21 → ER 23:23
DX: K42.9 Umbilical hernia without obstruction or gangrene (principal); G80.9 Cerebral palsy, unspecified; Z90.89 Acquired absence of other organs; Z86.73 Personal history of transient ischemic attack (TIA), and cerebral infarction without residual deficits; Z82.49 Family history of ischemic heart disease and other diseases of the circulatory system; Z85.41 Personal history of malignant neoplasm of cervix uteri
CPT/HCPCS: 99281

== ENCOUNTER 2020-04-24 17:59 | Emergency (ER) | payer SELFPAY ==
[~2020-04-24] VITALS: Ht 157 cm; Wt 56.8 kg
[2020-04-24 18:48] LABS: BASOPHILS # (AUTO) 0.1 10^3/uL (0.0-0.1); BASOPHILS % (AUTO) 1 % (0-10); EOSINOPHILS # (AUTO) 0.1 10^3/uL (0.0-0.3); EOSINOPHILS % (AUTO) 1 % (0-10); HEMATOCRIT 40 % (35-52); HEMOGLOBIN 13.9 G/DL (11.5-16.0); LYMPHOCYTES # (AUTO) 2.5 X 10^3 (1.0-4.0); LYMPHOCYTES % (AUTO) 28 % (12-44); MEAN CORPUSCULAR HEMOGLOBIN 32 PG (25-34); MEAN CORPUSCULAR HGB CONC 35 G/DL (32-36); MEAN CORPUSCULAR VOLUME 90 FL (80-99); MEAN PLATELET VOLUME 10.2 FL (7.4-10.4); MONOCYTES # (AUTO) 0.6 X 10^3 (0.0-1.0); MONOCYTES % (AUTO) 7 % (0-12); NEUTROPHILS # (AUTO) 5.7 X 10^3 (1.8-7.8); NEUTROPHILS % (AUTO) 64 % (42-75); PLATELET COUNT 275 10^3/uL (130-400); RED CELL DISTRIBUTION WIDTH 12.7 % (10.0-14.5); WHITE BLOOD COUNT 8.9 10^3/uL (4.3-11.0)
[2020-04-24 18:49] LABS: BILIRUBIN,URINE NEGATIVE (NEGATIVE); CLARITY,URINE CLEAR; COLOR,URINE YELLOW; GLUCOSE, URINE (UA) NEGATIVE (NEGATIVE); KETONES,URINE NEGATIVE (NEGATIVE); LEUKOCYTE ESTERASE ,URINE NEGATIVE (NEGATIVE); NITRITE,URINE NEGATIVE (NEGATIVE); PROTEIN,URINE NEGATIVE (NEGATIVE)
--- NOTE | 2020-04-24 18:51 | ED Abdominal Pain ---
General Chief Complaint: OB < 20 WEEKS Stated Complaint: 7 WKS PREG/CRAMPING/SPOTTING Nursing Triage Note: ARRIVED VIA AMB TO ROOM 09 WITH COMPLAINTS OF VAG BLEEDING WHEN SHE WIPES THAT IS DARK RED/BROWN X45M MINUTES AND ABD CRAMPING STARTING LAST NIGHT. Sepsis Screen: No Definite Risk Source of Information: Patient Exam Limitations: No Limitations History of Present Illness Date Seen by Provider: Apr 24, 2020 Time Seen by Provider: 18:48 Initial Comments To ER with reports of intermittent vaginal bleeding described as alternating dark brown blood and a little bit of data analytics analyst colored blood. She's had this 3 times when she wiped today. She had some lower right-sided suprapubic abdominal cramping intermittently today but none currently. Currently, she is pain-free. She is Ab1. Follow-up with Dr. Ralph. Timing/Duration: 4-6 Hours, Intermittent Severity/Quality: Moderate, Cramping Location: Suprapubic Radiation: No Radiation Activities at Onset: None Associated Symptoms: Denies Symptoms Allergies and Home Medications Allergies Coded Allergies: NKANo Known Allergies (Verified Allergy, Mild, 04/20/18) peach (Unverified Allergy, Unknown, 04/22/16) FROM UNCODED ALLERGIES Home Medications Vit W-Ca,Fe,FA(<1 mg) 1 Each Tablet, 1 EACH PO DAILY, (Reported) Patient Home Medication List Home Medication List Reviewed: Yes Review of Systems Review of Systems Constitutional: see HPI EENTM: No Symptoms Reported Respiratory: No Symptoms Reported Cardiovascular: No Symptoms Reported Gastrointestinal: See HPI, Abdominal Pain Genitourinary: No Symptoms Reported Musculoskeletal: no symptoms reported Skin: no symptoms reported Psychiatric/Neurological: No Symptoms Reported Endocrine: No Symptoms Reported Hematologic/Lymphatic: No Symptoms Reported Past Xnbypup-Phkxat-Rxqnsi Hx Patient Social History Alcohol Use: Denies Use Alcohol Beverage of Choice: Beer Recreational Drug Use: No Smoking Status: Never a Smoker 2nd Hand Smoke Exposure: No Recent Foreign Travel: No Contact w/Someone Who Travel: No Recent Infectious Disease Expo: No Recent Hopitalizations: No Immunizations Up To Date Tetanus Booster (TDap): Unknown PED Vaccines UTD: Yes Seasonal Allergies Seasonal Allergies: No Past Medical History Surgeries: Yes (REPAIR OF ASD/VSD, MUSCULOSKELETAL SURGERY TO STRAIGHTEN LEFT ARM) Adenoidectomy, Cardiac, Tonsillectomy Respiratory: No Cardiac: Yes (ASD and VSD REPAIRED) Congenital Heart Disease 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) Cerebral Palsy, Stroke : Yes Last Menstrual Period: March 03, 2020 Hx : 4 Hx Para: 2 Hx Total # of Abortions (Sp): 1 Reproductive Disorders: No Female Reproductive Disorders: Denies Sexually Transmitted Disease: No HIV/AIDS: No Gastrointestinal: No Musculoskeletal: No Endocrine: No HEENT: No Cancer: No Psychosocial: No Integumentary: No Blood Disorders: No Adverse Reaction/Blood Tranf: No Family Medical History Asthma (FATHER) Cervical cancer 19 MOTHER Diabetes mellitus (PGM MGF) FH: cancer (FATHER MGF) FH: heart disease (MGM PGM MGF PGF BROTHER) FH: stroke (MGM) Hypertension (FATHER PGM MGF PGF) Osteoporosis (FATHER) Tetralogy of Fallot (BROTHER) Physical Exam Vital Signs Vital Signs - First Documented 04/24/20 18:19 Temp 36.7 Pulse 78 Resp 16 B/P (MAP) 116/73 (87) Pulse Ox 100 O2 Delivery Room Air Capillary Refill : Less Than 3 Seconds Height/Weight/BMI Height: 5'2.00" Weight: 139lbs. 4.0oz. [id number]; 23.00 BMI Method:Stated General Appearance: WD/WN, no apparent distress HEENT: PERRL/EOMI, normal ENT inspection Respiratory: no respiratory distress, no accessory muscle use Gastrointestinal: normal bowel sounds, non tender, soft; No tenderness (no tenderness to palpation including the right lower abdomen where her pain was at earlier) Extremities: normal range of motion, non-tender Neurologic/Psychiatric: alert, normal mood/affect, oriented x 3 Skin: normal color, warm/dry Progress/Results/Core Measures Results/Orders Lab Results Laboratory Tests Test 04/24/20 18:35 Range/Units White Blood Count 8.9 4.3-11.0 10^3/uL Red Blood Count 4.40 4.35-5.85 10^6/uL Hemoglobin 13.9 11.5-16.0 G/DL Hematocrit 40 35-52 % Mean Corpuscular Volume 90 80-99 FL Mean Corpuscular Hemoglobin 32 25-34 PG Mean Corpuscular Hemoglobin Concent 35 32-36 G/DL Red Cell Distribution Width 12.7 10.0-14.5 % Platelet Count 275 130-400 10^3/uL Mean Platelet Volume 10.2 7.4-10.4 FL Neutrophils (%) (Auto) 64 42-75 % Lymphocytes (%) (Auto) 28 12-44 % Monocytes (%) (Auto) 7 0-12 % Eosinophils (%) (Auto) 1 0-10 % Basophils (%) (Auto) 1 0-10 % Neutrophils # (Auto) 5.7 1.8-7.8 X 10^3 Lymphocytes # (Auto) 2.5 1.0-4.0 X 10^3 Monocytes # (Auto) 0.6 0.0-1.0 X 10^3 Eosinophils # (Auto) 0.1 0.0-0.3 10^3/uL Basophils # (Auto) 0.1 0.0-0.1 10^3/uL Urine Color YELLOW Urine Clarity CLEAR Urine pH 7.0 5-9 Urine Specific [place] 1.010 L 1.016-1.022 Urine Protein NEGATIVE NEGATIVE Urine Glucose (UA) NEGATIVE NEGATIVE Urine Ketones NEGATIVE NEGATIVE Urine Nitrite NEGATIVE NEGATIVE Urine Bilirubin NEGATIVE NEGATIVE Urine Urobilinogen 0.2 < = 1.0 MG/DL Urine Leukocyte Esterase NEGATIVE NEGATIVE Urine RBC (Auto) 2+ H NEGATIVE Urine RBC 0-2 /HPF Urine WBC RARE /HPF Urine Crystals NONE /LPF Urine Bacteria TRACE /HPF Urine Casts NONE /LPF Urine Mucus NEGATIVE /LPF Urine Culture Indicated NO Human Chorionic Gonadotropin, Quant 1656 H <5 MIU/ML My Orders Orders - APOLINAR COTE JOB PRESS FEEDER Cbc With Automated Diff (04/24/20 18:35) Hcg,Quantitative (04/24/20 18:35) Ua Culture If Indicated (04/24/20 18:35) Vital Signs/I&O 04/24/20 18:19 Temp 36.7 Pulse 78 Resp 16 B/P (MAP) 116/73 (87) Pulse Ox 100 O2 Delivery Room Air Blood Pressure Mean: 87 Departure Communication (Admissions) Differential would include but is not limited to ectopic . We do not have ultrasound available at this time. However she is hemodynamically stable without any pain at this time. For that reason we can wait for an outpatient ultrasound tomorrow. Results of that will be faxed to Dr. Ralph who she sees for obstetrical care. Impression Primary Impression: Abdominal cramping affecting Additional Impression: Threatened miscarriage Disposition: HOME, SELF-CARE Condition: Stable Departure-Patient Inst. Decision time for Depature: 19:15 Referrals: TESSIE RALPH MD (PCP/Family) Primary Care Physician Patient Instructions: Threatened Miscarriage Add. Discharge Instructions: 1. Return to ER for any concerns Such as intolerable pain 2. Follow-up with your doctor on Friday as scheduled. Call the scheduling department tomorrow for them to tell you what time to be here for the ultrasound. 3. All discharge instructions reviewed with patient and/or family. Voiced understanding. APOLINAR COTE JOB PRESS FEEDER Apr 24, 2020 18:51
--- NOTE | 2020-04-24 19:00 | NUR ---
PT REFUSED ATIVAN
[2020-04-24 19:02] LABS: BACTERIA,URINE TRACE /HPF; RBC,URINE 0-2 /HPF; WBC,URINE RARE /HPF
[2020-04-24 19:25] VITALS: BP 116/73
== END 2020-04-24 19:25 | disposition home or self-care (01) ==
LOC: EDUNIT# 17:59 → ER 18:00
DX: O20.0 Threatened abortion (principal); Q24.9 Congenital malformation of heart, unspecified; Z88.8 Allergy status to other drugs, medicaments and biological substances; Z80.8 Family history of malignant neoplasm of other organs or systems; Z82.49 Family history of ischemic heart disease and other diseases of the circulatory system
CPT/HCPCS: 36415; 81000; 84702; 85025

== ENCOUNTER → 2020-04-25 | Outpatient (CLI) | payer SELFPAY ==
--- NOTE | 2020-04-25 13:20 | Diagnostic Imaging Report ---
INDICATION: Vaginal bleeding and abdominal cramping. Uterus measures 8.4 x 5.2 x 6.0 cm. Endometrium is approximately 5 mm in thickness. No intrauterine gestational sac is identified. No myometrial mass is identified. Right ovary measures 2.4 x 1.4 x 1.6 cm and the left ovary measures 3.5 x 1.3 x 2.9 cm. No adnexal mass or free fluid is seen. IMPRESSION: No evidence of intrauterine or adnexal . No adnexal mass or free fluid is seen. No abnormality is detected. Dictated by: Dictated on workstation # [id number]
== END ==
LOC: RAD 10:37
PROVIDERS: ATTEND Nurse Practitioner Family
DX: N93.9 Abnormal uterine and vaginal bleeding, unspecified (principal); R10.9 Unspecified abdominal pain
CPT/HCPCS: 76801; 76817

== ENCOUNTER 2021-01-25 20:32 | Emergency (ER) | payer SELFPAY ==
[~2021-01-25] VITALS: Ht 157.5 cm; Wt 62.6 kg
[2021-01-25 20:50] VITALS: BP 131/78
[2021-01-25 20:53] LABS: BILIRUBIN,URINE NEGATIVE (NEGATIVE); CLARITY,URINE CLEAR; COLOR,URINE YELLOW; GLUCOSE, URINE (UA) NEGATIVE (NEGATIVE); KETONES,URINE NEGATIVE (NEGATIVE); LEUKOCYTE ESTERASE ,URINE NEGATIVE (NEGATIVE); NITRITE,URINE NEGATIVE (NEGATIVE); PH,URINE 6.5 (5-9); PROTEIN,URINE NEGATIVE (NEGATIVE)
--- NOTE | 2021-01-25 20:56 | ED Abdominal Pain ---
General Chief Complaint: OB < 20 WEEKS Stated Complaint: 16 WKS PREG/LIGHTHEADED/STOMACH PAIN Source of Information: Patient Exam Limitations: No Limitations History of Present Illness Date Seen by Provider: Jan 25, 2021 Time Seen by Provider: 20:30 Initial Comments To ER with reports of intermittent lower abdominal cramping. She is 16 weeks gestation. She felt lightheaded earlier this evening. 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 No vaginal bleeding. Timing/Duration: 1-2 Days Severity/Quality: Moderate, Cramping Location: Suprapubic Radiation: No Radiation Associated Symptoms: Denies Symptoms Allergies and Home Medications Allergies Coded Allergies: NKANo Known Allergies (Verified Allergy, Mild, 04/20/18) peach (Unverified Allergy, Unknown, 04/22/16) FROM UNCODED ALLERGIES Home Medications Vit W-Ca,Fe,FA(<1 mg) 1 Each Tablet, 1 EACH PO DAILY, (Reported) Patient Home Medication List Home Medication List Reviewed: Yes Review of Systems Review of Systems Constitutional: see HPI EENTM: No Symptoms Reported Respiratory: No Symptoms Reported Cardiovascular: See HPI, Lightheadedness Gastrointestinal: See HPI, Abdominal Pain Musculoskeletal: no symptoms reported Skin: no symptoms reported Psychiatric/Neurological: No Symptoms Reported Endocrine: No Symptoms Reported Hematologic/Lymphatic: No Symptoms Reported Past Bzsrade-Zuumrh-Nawxao Hx Patient Social History Alcohol Use: Denies Use Number of Drinks Today: AA Alcohol Beverage of Choice: Beer Smoking Status: Never a Smoker 2nd Hand Smoke Exposure: No Recent Hopitalizations: No Immunizations Up To Date Tetanus Booster (TDap): Unknown PED Vaccines UTD: Yes Seasonal Allergies Seasonal Allergies: No Past Medical History Surgeries: Yes (REPAIR OF ASD/VSD, MUSCULOSKELETAL SURGERY TO STRAIGHTEN LEFT ARM) Adenoidectomy, Cardiac, Tonsillectomy Respiratory: No Cardiac: Yes (ASD and VSD REPAIRED) Congenital Heart Disease 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) Cerebral Palsy, Stroke Reproductive Disorders: No Female Reproductive Disorders: Denies Sexually Transmitted Disease: No HIV/AIDS: No Gastrointestinal: No Musculoskeletal: No Endocrine: No HEENT: No Cancer: No Psychosocial: No Integumentary: No Blood Disorders: No Adverse Reaction/Blood Tranf: No Family Medical History Asthma (FATHER) Cervical cancer 19 MOTHER Diabetes mellitus (PGM MGF) FH: cancer (FATHER MGF) FH: heart disease (MGM PGM MGF PGF BROTHER) FH: stroke (MGM) Hypertension (FATHER PGM MGF PGF) Osteoporosis (FATHER) Tetralogy of Fallot (BROTHER) Physical Exam Vital Signs Vital Signs - First Documented 01/25/21 20:50 Temp 36.2 Pulse 89 Resp 16 B/P (MAP) 131/78 (95) O2 Delivery Room Air Capillary Refill : Height/Weight/BMI Height: 5'2.00" Weight: 139lbs. 4.0oz. 63.539828ja; 23.00 BMI Method:Stated General Appearance: WD/WN, no apparent distress HEENT: PERRL/EOMI, normal ENT inspection Respiratory: no respiratory distress, no accessory muscle use Cardiovascular: regular rate, rhythm, no murmur Gastrointestinal: normal bowel sounds, non tender, soft Neurologic/Psychiatric: alert, normal mood/affect, oriented x 3 Skin: normal color, warm/dry Exam Comments what bedside ultrasound reveals positive motion with positive cardiac activity heart rate of 150-160. Progress/Results/Core Measures Results/Orders Lab Results Laboratory Tests Test 01/25/21 20:43 01/25/21 21:01 Range/Units Urine Color YELLOW Urine Clarity CLEAR Urine pH 6.5 5-9 Urine Specific [place] <=1.005 1.016-1.022 Urine Protein NEGATIVE NEGATIVE Urine Glucose (UA) NEGATIVE NEGATIVE Urine Ketones NEGATIVE NEGATIVE Urine Nitrite NEGATIVE NEGATIVE Urine Bilirubin NEGATIVE NEGATIVE Urine Urobilinogen 0.2 < = 1.0 MG/DL Urine Leukocyte Esterase NEGATIVE NEGATIVE Urine RBC (Auto) TRACE-L NEGATIVE Urine RBC RARE /HPF Urine WBC NONE /HPF Urine Squamous Epithelial Cells 2-5 /HPF Urine Crystals NONE /LPF Urine Bacteria TRACE /HPF Urine Casts NONE /LPF Urine Mucus NEGATIVE /LPF Urine Culture Indicated NO White Blood Count 12.3 H 4.3-11.0 10^3/uL Red Blood Count 3.84 3.80-5.11 10^6/uL Hemoglobin 12.2 11.5-16.0 g/dL Hematocrit 35 35-52 % Mean Corpuscular Volume 92 80-99 fL Mean Corpuscular Hemoglobin 32 25-34 pg Mean Corpuscular Hemoglobin Concent 35 32-36 g/dL Red Cell Distribution Width 12.8 10.0-14.5 % Platelet Count 266 130-400 10^3/uL Mean Platelet Volume 9.6 9.0-12.2 fL Immature Granulocyte % (Auto) 0 % Neutrophils (%) (Auto) 72 42-75 % Lymphocytes (%) (Auto) 20 12-44 % Monocytes (%) (Auto) 6 0-12 % Eosinophils (%) (Auto) 1 0-10 % Basophils (%) (Auto) 0 0-10 % Neutrophils # (Auto) 8.9 H 1.8-7.8 10^3/uL Lymphocytes # (Auto) 2.4 1.0-4.0 10^3/uL Monocytes # (Auto) 0.8 0.0-1.0 10^3/uL Eosinophils # (Auto) 0.1 0.0-0.3 10^3/uL Basophils # (Auto) 0.1 0.0-0.1 10^3/uL Immature Granulocyte # (Auto) 0.1 0.0-0.1 10^3/uL Sodium Level 137 135-145 MMOL/L Potassium Level 4.1 3.6-5.0 MMOL/L Chloride Level 103 98-107 MMOL/L Carbon Dioxide Level 22 21-32 MMOL/L Anion Gap 12 5-14 MMOL/L Blood Urea Nitrogen 7 7-18 MG/DL Creatinine 0.58 L 0.60-1.30 MG/DL Estimat Glomerular Filtration Rate > 60 BUN/Creatinine Ratio 12 Glucose Level 95 70-105 MG/DL Calcium Level 9.2 8.5-10.1 MG/DL Corrected Calcium 9.2 8.5-10.1 MG/DL Total Bilirubin 0.4 0.1-1.0 MG/DL Aspartate Amino Transf (AST/SGOT) 14 5-34 U/L Alanine Aminotransferase (ALT/SGPT) 14 0-55 U/L Alkaline Phosphatase 53 40-136 U/L Total Protein 7.6 6.4-8.2 GM/DL Albumin 4.0 3.2-4.5 GM/DL My Orders Orders - APOLINAR COTE APRN Cbc With Automated Diff (01/25/21 20:46) Comprehensive Metabolic Panel (01/25/21 20:46) Ua Culture If Indicated (01/25/21 20:46) Ed Iv/Invasive Line Start (01/25/21 20:46) Vital Signs/I&O 01/25/21 20:50 Temp 36.2 Pulse 89 Resp 16 B/P (MAP) 131/78 (95) O2 Delivery Room Air Departure Impression Primary Impression: Lightheadedness Disposition: 01 HOME, SELF-CARE Condition: Stable Departure-Patient Inst. Decision time for Depature: 21:34 Referrals: TESSIE RALPH MD (PCP/Family) Primary Care Physician Patient Instructions: NO INSTRUCTIONS GIVEN Add. Discharge Instructions: 1. Return to ER for any concerns. Call Dr. Casillas tomorrow to make an appointment to be seen for follow-up. Return to ER for any worsening. All discharge instructions reviewed with patient and/or family. Voiced understanding. Work/School Note: Work Release Form Date Seen in the Emergency Department: Jan 25, 2021 Return to Work: Jan 27, 2021 Copy Copies To 1: TESSIE RALPH MD, PETER J APRN Jan 25, 2021 20:56
[2021-01-25 20:58] LABS: BACTERIA,URINE TRACE /HPF; RBC,URINE RARE /HPF
[2021-01-25 21:08] LABS: BASOPHILS # (AUTO) 0.1 10^3/uL (0.0-0.1); BASOPHILS % (AUTO) 0 % (0-10); EOSINOPHILS # (AUTO) 0.1 10^3/uL (0.0-0.3); EOSINOPHILS % (AUTO) 1 % (0-10); HEMATOCRIT 35 % (35-52); HEMOGLOBIN 12.2 g/dL (11.5-16.0); LYMPHOCYTES # (AUTO) 2.4 10^3/uL (1.0-4.0); LYMPHOCYTES % (AUTO) 20 % (12-44); MEAN CORPUSCULAR HEMOGLOBIN 32 pg (25-34); MEAN CORPUSCULAR HGB CONC 35 g/dL (32-36); MEAN CORPUSCULAR VOLUME 92 fL (80-99); MEAN PLATELET VOLUME 9.6 fL (9.0-12.2); MONOCYTES # (AUTO) 0.8 10^3/uL (0.0-1.0); MONOCYTES % (AUTO) 6 % (0-12); NEUTROPHILS # (AUTO) 8.9 10^3/uL (1.8-7.8); NEUTROPHILS % (AUTO) 72 % (42-75); PLATELET COUNT 266 10^3/uL (130-400); WHITE BLOOD COUNT 12.3 10^3/uL (4.3-11.0)
[2021-01-25 21:17] LABS: CHLORIDE 103 MMOL/L (98-107); POTASSIUM 4.1 MMOL/L (3.6-5.0); SODIUM 137 MMOL/L (135-145)
[2021-01-25 21:18] LABS: CALCIUM 9.2 MG/DL (8.5-10.1)
[2021-01-25 21:19] LABS: GLUCOSE 95 MG/DL (70-105); TOTAL PROTEIN 7.6 GM/DL (6.4-8.2)
[2021-01-25 21:20] LABS: CARBON DIOXIDE 22 MMOL/L (21-32)
[2021-01-25 21:21] LABS: BILIRUBIN,TOTAL 0.4 MG/DL (0.1-1.0)
[2021-01-25 21:22] LABS: ALKALINE PHOSPHATASE 53 U/L (40-136)
[2021-01-25 21:23] LABS: CREATININE SERUM 0.58 MG/DL (0.60-1.30); GFR ESTIMATED > 60
[2021-01-25 21:24] LABS: BUN/CREATININE RATIO 12
[2021-01-25 21:26] LABS: ALANINE AMINOTRANSFERASE 14 U/L (0-55)
== END 2021-01-25 21:40 | disposition home or self-care (01) ==
LOC: EDUNIT# 20:32 → ER 20:33
DX: O26.892 Other specified pregnancy related conditions, second trimester (principal); R42 Dizziness and giddiness; Z86.73 Personal history of transient ischemic attack (TIA), and cerebral infarction without residual deficits; Z83.3 Family history of diabetes mellitus; Z82.49 Family history of ischemic heart disease and other diseases of the circulatory system; Z80.49 Family history of malignant neoplasm of other genital organs; Z3A.16 16 weeks gestation of pregnancy
CPT/HCPCS: 36415; 80053; 81000; 85025

== ENCOUNTER 2021-02-18 11:20 | Outpatient (CLI) | payer MEDICAID ==
[2021-02-18 12:06] LABS: BILIRUBIN,URINE NEGATIVE (NEGATIVE); CLARITY,URINE CLEAR; COLOR,URINE YELLOW; GLUCOSE, URINE (UA) NEGATIVE (NEGATIVE); KETONES,URINE NEGATIVE (NEGATIVE); LEUKOCYTE ESTERASE ,URINE 1+ (NEGATIVE); NITRITE,URINE NEGATIVE (NEGATIVE); PH,URINE 7.5 (5-9); PROTEIN,URINE NEGATIVE (NEGATIVE)
[2021-02-18 12:12] LABS: BACTERIA,URINE FEW /HPF
[2021-02-18 12:15] VITALS: BP 110/63
[2021-02-18 12:19] VITALS: BP 110/63
--- NOTE | 2021-02-19 08:34 | Physician Query-Final Dx ---
Clinic Account Progress/Dx Physician Query: Please give diagnosis Please include # weeks gestation Date of Service February 18, 2021 at 11:20 DANDRE KENNEDY February 19, 2021 08:34
== END 2021-02-18 13:15 | disposition home or self-care (01) ==
LOC: WSo 11:20 → LDRP 11:20 → WSo 13:15
PROVIDERS: ATTEND Family Medicine
DX: O26.899 Other specified pregnancy related conditions, unspecified trimester (principal); Z3A.00 Weeks of gestation of pregnancy not specified
CPT/HCPCS: 81000; 87077; 87088; G0463; 99212

== ENCOUNTER 2021-05-27 20:00 | Emergency (ER) | payer MEDICAID ==
[~2021-05-27] VITALS: Ht 157.5 cm; Wt 71.2 kg
[2021-05-27] MEDS ORDERED: ACETAMINOPHEN 500 MG TAB (TYLENOL) PO ONE (20:15)
--- NOTE | 2021-05-27 20:17 | ED Lower Extremity ---
General Stated Complaint: 34 WEEKS, FALL, RIGHT ANKLE PAIN Source: patient Exam Limitations: no limitations History of Present Illness Date Seen by Provider: May 27, 2021 Time Seen by Provider: 20:08 Initial Comments Patient is a 25-year-old female who is approximately 34 weeks under the care of Dr. Arnold who presents to the emergency department with a chief complaint of right ankle pain. Patient states that she has a "mild case of cerebral palsy" and her left leg got weak and went out from underneath her she fell down to her knees and twisted her right ankle. Patient states at that time she heard a pop and sustained pain to the lateral aspect of her right ankle radiating up into the leg. She states for several minutes she was unable to bear weight. Patient states subsequently she was able to. She has not taken any medication for the pain or applied any ice. She states she does not believe she injured her belly but she did jar it a little bit. She has been feeling movements pretty consistently. No other complaints of illness or injury. All other review of systems reviewed and negative except as stated. Onset: just prior to arrival Pain/Injury Location: right ankle Method of Injury: fell Modifying Factors: Worse With Movement Allergies and Home Medications Allergies Coded Allergies: NKANo Known Allergies (Verified Allergy, Mild, 04/20/18) peach (Unverified Allergy, Unknown, 04/22/16) FROM UNCODED ALLERGIES Home Medications Vit W-Ca,Fe,FA(<1 mg) 1 Each Tablet, 1 EACH PO DAILY, (Reported) Patient Home Medication List Home Medication List Reviewed: Yes Review of Systems Constitutional: see HPI EENTM: no symptoms reported Respiratory: no symptoms reported Cardiovascular: no symptoms reported Gastrointestinal: no symptoms reported Genitourinary: no symptoms reported : Yes Control/STD Prophylaxis: None Musculoskeletal: joint pain (Right lateral ankle) All Other Systems Reviewed Negative Unless Noted: Yes Past Ayivikz-Udwqff-Nfcbqk Hx Immunizations Up To Date Tetanus Booster (TDap): Unknown PED Vaccines UTD: Yes Seasonal Allergies Seasonal Allergies: No Past Medical History Surgeries: Yes (REPAIR OF ASD/VSD, MUSCULOSKELETAL SURGERY TO STRAIGHTEN LEFT ARM) Adenoidectomy, Cardiac, Tonsillectomy Respiratory: No Cardiac: Yes (ASD and VSD REPAIRED) Congenital Heart Disease 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) Cerebral Palsy, Stroke Reproductive Disorders: No Female Reproductive Disorders: Denies Sexually Transmitted Disease: No HIV/AIDS: No Gastrointestinal: No Musculoskeletal: No Endocrine: No HEENT: No Cancer: No Psychosocial: No Integumentary: No Blood Disorders: No Adverse Reaction/Blood Tranf: No Family Medical History Asthma (FATHER) Cervical cancer 19 MOTHER Diabetes mellitus (PGM MGF) FH: cancer (FATHER MGF) FH: heart disease (MGM PGM MGF PGF BROTHER) FH: stroke (MGM) Hypertension (FATHER PGM MGF PGF) Osteoporosis (FATHER) Tetralogy of Fallot (BROTHER) Physical Exam Vital Signs Vital Signs - First Documented 05/27/21 20:07 Temp 36.4 Pulse 91 Resp 20 B/P (MAP) 158/90 (112) Pulse Ox 100 O2 Delivery Room Air Capillary Refill : Height, Weight, BMI Height: 5'2.00" Weight: 139lbs. 4.0oz. 63.168676xq; 25.00 BMI Method:Stated General Appearance: WD/WN, no apparent distress Cardiovascular: regular rate, rhythm Respiratory: lungs clear, normal breath sounds, no respiratory distress, no accessory muscle use Gastrointestinal: soft, other (Gravid uterus, heart tones 133; no abdo darien wall tenderness no bruising noted) Hips: bilateral hip normal range of motion, bilateral hip no evidence of injury Legs: bilateral leg normal inspection, bilateral leg normal range of motion Knees: right knee pain (Little tenderness to palpation over the lateral malleolus and proximal up the fibula), right knee other (Abrasion superficial noted to the right knee) Ankles: bilateral ankle normal inspection, bilateral ankle normal range of motion, bilateral ankle no evidence of injury; right ankle pain (Tenderness over the right lateral malleolus and distal fibula) Feet: bilateral foot non-tender, bilateral foot normal inspection, bilateral foot normal range of motion, bilateral foot no evidence of injury Neurologic/Tendon: normal sensation, normal motor functions, normal tendon functions Neurologic/Psychiatric: alert, normal mood/affect, oriented x 3 Skin: normal color, warm/dry Progress/Results/Core Measures Results/Orders My Orders Orders - DARRON DE LOS SANTOS MD Ankle, Right, 3 Views (05/27/21 20:12) Acetaminophen Tablet (Tylenol Tablet) (05/27/21 20:15) Medications Given in ED Current Medications Medications Dose Ordered Sig/Micheal Route Start Time Stop Time Status Last Admin Dose Admin Acetaminophen 1,000 mg ONCE ONCE PO 05/27/21 20:15 05/27/21 20:16 DC 05/27/21 20:17 1,000 MG Vital Signs/I&O 05/27/21 20:07 Temp 36.4 Pulse 91 Resp 20 B/P (MAP) 158/90 (112) Pulse Ox 100 O2 Delivery Room Air Diagnostic Imaging Diagonstic Imaging: Xray Comments 3 views of the right ankle. reviewed by me - no evidence of fracture or dislocation Departure Impression Primary Impression: Right ankle sprain Qualified Codes: S93.401A - Sprain of unspecified ligament of right ankle, initial encounter Additional Impression: 34 weeks gestation of Disposition: HOME, SELF-CARE Condition: Stable Departure-Patient Inst. Decision time for Depature: 20:17 Referrals: TESSIE ARNOLD MD (PCP/Family) Primary Care Physician Patient Instructions: Ankle Sprain Add. Discharge Instructions: Drink plenty of fluids to stay well-hydrated. You can take [id number] Tylenol, extra strength 2 tablets every 6 hours as needed for pain. Keep the ankle elevated to reduce swelling. Apply an ice pack 20 minutes at a time hourly as needed for discomfort and swelling. Follow-up with your OB provider as scheduled. Return to the emergency room for any new, concerning or emergent complaints. DARRON DE LOS SANTOS MD May 27, 2021 20:17
[2021-05-27 20:42] VITALS: BP 127/72
--- NOTE | 2021-05-27 20:45 | Diagnostic Imaging Report ---
INDICATION: Right ankle injury from a fall. EXAMINATION: Three views of the right ankle. FINDINGS: No fracture, dislocation or other acute abnormality. IMPRESSION: Negative right ankle. Dictated by: Dictated on workstation # [id number]
== END 2021-05-27 20:42 | disposition home or self-care (01) ==
LOC: EDUNIT# 20:00 → ER 20:04
DX: O9A.213 Injury, poisoning and certain other consequences of external causes complicating pregnancy, third trimester (principal); S93.401A Sprain of unspecified ligament of right ankle, initial encounter; S80.211A Abrasion, right knee, initial encounter; Z3A.34 34 weeks gestation of pregnancy; Z86.73 Personal history of transient ischemic attack (TIA), and cerebral infarction without residual deficits; X50.1XXA Overexertion from prolonged static or awkward postures, initial encounter
CPT/HCPCS: 73610

== ENCOUNTER 2021-07-05 06:00 | Inpatient (IN) | payer MEDICAID ==
[~2021-07-05] VITALS: Ht 157.5 cm; Wt 74.3 kg
[2021-07-05] VITALS (7 sets, daily range): BP systolic 10–128; BP diastolic 56–75
[2021-07-05] MEDS ORDERED: CITRIC ACID/SOB CIT (BICITRA) 30 ML UDC PO ONE (10:45)
[2021-07-05] MEDS ORDERED: FAMOTIDINE 20MG/2ML IV (PEPCID) IV ONE (10:45)
[2021-07-05] MEDS ORDERED: METOCLOPRAMIDE INJ 10 MG/2 ML (REGLAN) IV ONE (10:45)
--- NOTE | 2021-07-05 10:57 | History & Physical-OB ---
OB - Chief Complaint & HPI Date/Time Date of Admission: Date of Admission: Jul 05, 2021 at 09:59 Date seen by a Provider: Jul 04, 2021 Time Seen by a Provider: 16:00 Chief Complaint/History OB-Reason for Admission/Chief: Section Hx : 3 Hx Para: 2 Expected Date of Delivery: Jul 08, 2021 Gestational Age in Weeks: 39 Gestational Age in Days: 3 Indication for : malpresentation (transverse) Admission Nurse Assessment Rev: Yes History of Labs GBS negative Allergies and Home Medications Allergies Coded Allergies: NKANo Known Allergies (Verified Allergy, Mild, 04/20/18) peach (Unverified Allergy, Unknown, 04/22/16) FROM UNCODED ALLERGIES Patient Home Medication List Home Medication List Reviewed: Yes Vit W-Ca,Fe,FA(<1 mg) ( Vitamins) 1 Each Tablet, 1 EACH PO DAILY, (Reported) Entered as Reported by: AMAN PELAEZ on 04/20/182210 OB - History Hx of Present Care: Yes Ultrasounds: Normal mid trimester US Obstetrical Complications: None Medical Complications: None Delivery History Hx Blood Disorders: No Adverse Rxn to Tranfusion: No 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 Social History/Family History 2nd Hand Smoke Exposure: No Immunizations Hepatitis A: No Hepatitis B: No Tetanus Booster (TDap): Unknown OB - Admission Exam Physical Exam HEENT: Moist Membranes Heart: Rhythm Normal Lungs: Clear Abdomen: Gravid Cervical Dilatation: 1cm Effacement: 50% Station: Ballotable Membranes: Intact OB - Assessment/Plan/Diagnosis Assessment Assessment: section (due to malpresentation at term) Admission Dx 1. IUP at 39 weeks 2. malpresentation Admission Status: Inpatient Order (span 2 midnights) Reason for Inpatient Admission: primary cs Plan Plan: Section Other Plan -primary CS at noon 07/05/2021 TESSIE RALPH MD Jul 05, 2021 10:57
[2021-07-05] MEDS: LACTATED RINGERS 1,000 ML IV PRN ×2 (11:14→12:01)
[2021-07-05 11:19] LABS: BASOPHILS % (AUTO) 0 % (0-10); EOSINOPHILS # (AUTO) 0.1 10^3/uL (0.0-0.3); EOSINOPHILS % (AUTO) 1 % (0-10); HEMATOCRIT 37 % (35-52); HEMOGLOBIN 12.7 g/dL (11.5-16.0); LYMPHOCYTES # (AUTO) 1.7 10^3/uL (1.0-4.0); LYMPHOCYTES % (AUTO) 18 % (12-44); MEAN CORPUSCULAR HEMOGLOBIN 33 pg (25-34); MEAN CORPUSCULAR HGB CONC 35 g/dL (32-36); MEAN CORPUSCULAR VOLUME 96 fL (80-99); MEAN PLATELET VOLUME 10.4 fL (9.0-12.2); MONOCYTES # (AUTO) 0.7 10^3/uL (0.0-1.0); MONOCYTES % (AUTO) 8 % (0-12); NEUTROPHILS # (AUTO) 6.7 10^3/uL (1.8-7.8); NEUTROPHILS % (AUTO) 73 % (42-75); PLATELET COUNT 194 10^3/uL (130-400); WHITE BLOOD COUNT 9.2 10^3/uL (4.3-11.0)
[2021-07-05] MEDS ORDERED: ceFAZolin 2 GM IV Premixed 50 ML IV ONE (11:45)
[2021-07-05] MEDS ORDERED: metroNIDAZOLE 500MG/100ML IVPB 100 ML IV ONE (11:45)
[2021-07-05] MEDS ORDERED: metroNIDAZOLE 500MG/100ML IVPB 100 ML ONE (11:57)
[2021-07-05] MEDS ORDERED: ceFAZolin 2 GM IV Premixed 50 ML ONE (11:57)
[2021-07-05] MEDS ORDERED: ONDANSETRON 4 MG/2 ML (SDV) Z0FRAN ONE (12:13)
[2021-07-05] MEDS ORDERED: OXYTOCIN PRE-MIX DRIP 1,000 ML IV ONE (12:13)
[2021-07-05] MEDS ORDERED: fentaNYL INJ 100 MCG/2 ML AMP ONE (12:13)
[2021-07-05] MEDS ORDERED: KETOROLAC 30 MG/ML VIAL ONE (13:06)
[2021-07-05] MEDS: OXYTOCIN PRE-MIX DRIP 500 ML IV SCH ×2 (13:15→18:16)
[2021-07-05] MEDS ORDERED: PHENYLEPHRINE 100 MCG/ML 10 ML (ANESTHESIA) SYR ONE (13:16)
[2021-07-05] MEDS: KETOROLAC 30 MG/ML VIAL IVP PRN ×2 (13:20→18:31)
[2021-07-05] MEDS ORDERED: BUPIVACAINE 0.5% 30 ML (SENSORCAINE) VIAL ONE (13:28)
[2021-07-05] MEDS ORDERED: METOCLOPRAMIDE INJ 10 MG/2 ML (REGLAN) IV PRN (14:00)
[2021-07-05] MEDS ORDERED: ONDANSETRON 4 MG/2 ML (SDV) Z0FRAN IV PRN (14:00)
[2021-07-05] MEDS ORDERED: TETANUS,DIPTH,PERTUSS P/F (BOOSTRIX) 0.5 ML VIAL IM ONE (14:00)
[2021-07-05] MEDS ORDERED: ONDANSETRON 4 MG/2 ML (SDV) Z0FRAN IVP PRN (14:00)
[2021-07-05] MEDS ORDERED: fentaNYL INJ 100 MCG/2 ML AMP IVP PRN (14:00)
[2021-07-05] MEDS ORDERED: NALOXONE 0.4 MG/ML 1 ML (NARCAN) VIAL IV PRN ×3 (14:00)
[2021-07-05] MEDS ORDERED: MEASLES,MUMPS,RUBELLA 1 EA INJ SC ONE (14:00)
[2021-07-05] MEDS ORDERED: D5 LR IV SOLUTION 1,000 ML IV SCH (14:00)
[2021-07-05] MEDS ORDERED: diphenhydrAMINE 50 MG/ML INJ (BENADRYL) IV PRN (14:00)
--- NOTE | 2021-07-05 14:24 | OPERATIVE REPORT ---
DATE OF SERVICE: 07/05/2021 PREOPERATIVE DIAGNOSIS: Term at 39+ weeks' gestation with breech presentation. POSTOPERATIVE DIAGNOSIS: Term at 39+ weeks' gestation with breech presentation. OPERATIVE PROCEDURE: Primary low transverse delivery of a viable female with Apgars of 8 and 9 at 1 and 5 minutes respectively, weight is 7 pounds 15 ounces, cord blood pH of 7.31 and a time of 1301. MEDICAL RECORDS CLERK FOR DELIVERY: Dr. Arnold. INSTANT POTATO PROCESSING SUPERVISOR FOR DELIVERY: Dr. Arnold. OPERATIVE DESCRIPTION: With the patient in supine position under satisfactory spinal analgesia, she was repositioned in dorsal lithotomy position and prepped and draped in the usual fashion for abdominal surgery. Gracia catheter was placed in the urinary bladder. Pfannenstiel incision made through skin with scalpel, the patient's abdomen entered in the usual manner. Bladder retractor placed in position, clean scalpel used to make a 4 cm hysterotomy incision transversely across the lower uterine segment. That incision was extended bluntly. Clear fluid was released on hysterotomy. A vigorous viable female infant was delivered from a double footling breech presentation in the usual breech extraction manner. The was bulb suctioned on delivery of the head and again on completion of delivery. The umbilical cord was doubly clamped and cut. The taken to the warmer by Dr. Arnold, the professor of economics in attendance for delivery. Cord bloods were obtained. Placenta delivered spontaneously Valles. It was normal with a 3-vessel cord. The uterus was exteriorized and interior wiped clean with a wet laparotomy sponge. Uterine incision closed with a running locked suture of 2-0 Vicryl. Hemostasis was complete. The uterus was returned to abdominal cavity. All blood clot and debris removed from the abdominal cavity. Sponge and needle counts correct, hemostasis assured. Anterior parietal peritoneum was closed with running suture of 2-0 Vicryl. Rectus muscles were closed with that suture as well. The rectus fascia was closed with 2-0 Vicryl, subcutaneous tissue was closed with 2-0 Vicryl and the skin was stapled. Sponge and needle counts were correct on completion of the procedure. Estimated blood loss was around 400 mL. The patient tolerated the procedure well and was transferred to recovery room in stable condition. The had been taken stable to the full term nursery under the care of Dr. Arnold. Job ID: [id number] DocumentID: [id number] Dictated Date: 07/05/2021 13:48:06 Park Guide Date: 07/05/2021 14:23:43 Dictated By: EDUARDO COSTA MD
[2021-07-05] MEDS ORDERED: DOCU-239 PO (14:32)
[2021-07-05] MEDS ORDERED: IBUP-1780 PO (14:32)
[2021-07-05] MEDS ORDERED: OXYC1TAB12 PO (14:32)
--- NOTE | 2021-07-05 14:34 | Discharge Inst-Surgical ---
Discharge Inst-Surgical Depart Medication/Instructions New, Converted or Re-Newed RX: Transmitted to Pharmacy Consults/Follow Up Patient Instructions: as directed Orders & Referrals Follow Up Appt: RTC 1 week for incision check with Dr. Bhatt. Call to make follow up appt. for patient in [address] Arnold. Wound Care: Remove amy, apply benzoin and steri strips. Activity Per routine post instructions. Please call in RX to patient pharmacy. Diet as tolerated Patient may shower or tub bathe as desired. Continue home meds Activity Activity as Tolerated: No Diet Discharge Diet: No Restrictions EDUARDO BHATT MD Jul 05, 2021 14:34
[2021-07-05] MEDS: oxyCODONE/APAP 10/325MG (PERCOCET 10) TABLET PO PRN ×2 (16:32→20:59)
[2021-07-05] MEDS: IBUPROFEN 800 MG (MOTRIN) TAB PO SCH (18:49)
[2021-07-05] MEDS ORDERED: DOCUSATE SODIUM 100 MG (COLACE) CAP PO SCH (21:00)
[2021-07-05] MEDS: DOCUSATE SODIUM 100 MG (COLACE) CAP PO SCH (21:00)
[2021-07-06 00:16] VITALS: BP 105/55
[2021-07-06] MEDS: KETOROLAC 30 MG/ML VIAL IVP PRN (00:19)
[2021-07-06 04:18] VITALS: BP 105/56
[2021-07-06] MEDS: IBUPROFEN 800 MG (MOTRIN) TAB PO SCH ×3 (06:00→18:35)
--- NOTE | 2021-07-06 07:36 | Progress Note ---
Standard Progress Note Progress Notes/Assess & Plan Date Seen by a Provider: Jul 06, 2021 Time Seen by a Provider: 07:35 Progress/Assessment & Plan This patient is without complaint. She is ambulating, voiding, tolerating oral intake and has good pain control. Vital Signs Date Time Temp Pulse Resp B/P (MAP) Pulse Ox O2 Delivery O2 Flow Rate FiO2 07/06/21 04:18 36.4 93 18 105/56 (72) 95 Room Air 07/06/21 00:16 36.6 81 18 105/55 (72) 95 Room Air 07/05/21 21:01 36.1 73 18 128/66 (86) 95 Room Air 07/05/21 17:17 36.8 81 18 113/56 (75) 96 Room Air 07/05/21 14:20 35.8 16 104/61 (75) 97 Room Air 07/05/21 14:20 35.8 87 16 104/61 (75) 97 Room Air 07/05/21 14:20 Room Air 07/05/21 14:00 36.2 16 105/75 (85) 97 Room Air 07/05/21 14:00 Room Air 07/05/21 13:45 Room Air 07/05/21 13:45 36.5 16 100/64 (76) 96 Room Air 07/05/21 13:30 36.4 16 107/61 (76) 98 Room Air 07/05/21 13:30 Room Air 07/05/21 10:20 36.6 87 18 97 Room Air I & O 07/06/21 07:00 Intake Total 3050 ml Output Total 625 ml Balance 2425 ml Vital signs are stable. Patient is afebrile. The abdomen is benign. The surgical incision is clean dry and intact. Fundus is firm below the umbilicus Extremities show no clubbing. There is no Homans' sign Assessment and plan postoperative day #1 status post patient is doing well will have routine convalescent EDUARDO COSTA MD Jul 06, 2021 07:36
[2021-07-06 09:30] VITALS: BP 107/51
[2021-07-06] MEDS: oxyCODONE/APAP 10/325MG (PERCOCET 10) TABLET PO PRN ×2 (11:02→15:13)
[2021-07-06] MEDS: DOCUSATE SODIUM 100 MG (COLACE) CAP PO SCH ×2 (11:02→20:52)
[2021-07-06 12:19] VITALS: BP 110/62
--- NOTE | 2021-07-06 13:16 | Anesthesia-Regional Post-Op ---
Regional Patient Condition Mental Status: Alert, Oriented x3 Circulation: Same as Pre-Op Headache: Absent Sensation: Full Recovery Motor Block: Absent Post Op Complications Complications None Follow Up Care/Instructions Patient Instructions None needed. Anesthesia/Patient Condition Patient is doing well, no complaints, stable vital signs, no apparent adverse anesthesia problems. No complications reported per nursing. DESTINI LAMB CRNA Jul 06, 2021 13:16
[2021-07-06 18:36] VITALS: BP 124/67
[2021-07-07 00:47] VITALS: BP 115/58
[2021-07-07] MEDS: IBUPROFEN 800 MG (MOTRIN) TAB PO SCH ×2 (00:48→06:20)
[2021-07-07 06:00] VITALS: BP 116/74
--- NOTE | 2021-07-07 07:44 | Progress Note ---
Standard Progress Note Progress Notes/Assess & Plan Date Seen by a Provider: Jul 07, 2021 Time Seen by a Provider: 07:44 Progress/Assessment & Plan This patient is without complaint. She is ambulating, voiding, tolerating oral intake and has good pain control. Vital Signs Date Time Temp Pulse Resp B/P (MAP) Pulse Ox O2 Delivery O2 Flow Rate FiO2 07/06/21 04:18 36.4 93 18 105/56 (72) 95 Room Air 07/06/21 00:16 36.6 81 18 105/55 (72) 95 Room Air 07/05/21 21:01 36.1 73 18 128/66 (86) 95 Room Air 07/05/21 17:17 36.8 81 18 113/56 (75) 96 Room Air 07/05/21 14:20 35.8 16 104/61 (75) 97 Room Air 07/05/21 14:20 35.8 87 16 104/61 (75) 97 Room Air 07/05/21 14:20 Room Air 07/05/21 14:00 36.2 16 105/75 (85) 97 Room Air 07/05/21 14:00 Room Air 07/05/21 13:45 Room Air 07/05/21 13:45 36.5 16 100/64 (76) 96 Room Air 07/05/21 13:30 36.4 16 107/61 (76) 98 Room Air 07/05/21 13:30 Room Air 07/05/21 10:20 36.6 87 18 97 Room Air I & O 07/06/21 07:00 Intake Total 3050 ml Output Total 625 ml Balance 2425 ml Vital signs are stable. Patient is afebrile. The abdomen is benign. The surgical incision is clean dry and intact. Fundus is firm below the umbilicus Extremities show no clubbing. There is no Homans' sign Assessment and plan postoperative day #1 status post patient is doing well will have routine convalescent July 07, 2021 This patient is without complaint. She is ambulating, voiding, tolerating oral intake well has good pain control. Vital Signs Date Time Temp Pulse Resp B/P (MAP) Pulse Ox O2 Delivery O2 Flow Rate FiO2 07/07/21 06:00 36.5 80 18 116/74 (88) 99 Room Air 07/07/21 00:47 36.4 94 18 115/58 (77) 98 Room Air 07/06/21 18:36 36.2 88 18 124/67 (86) 96 Room Air 07/06/21 12:19 36.2 76 18 110/62 (78) 96 Room Air 07/06/21 09:30 36.1 80 18 107/51 (69) 96 Room Air I & O 07/07/21 06:59 Output Total 1200 ml Balance -1200 ml Vital signs are stable. Patient is afebrile. The abdomen is benign. The surgical incision is clean dry and intact. Extremities show no clubbing or cyanosis. There is no Homans' sign. Assessment and plan Postoperative day #2 status post primary delivery at 39+ weeks gestation for breech presentation. Patient is doing well will be discharged home with follow-up in clinic Final Diagnosis 39-week primary delivery EDUARDO COSTA MD Jul 07, 2021 07:44
[2021-07-07] MEDS: DOCUSATE SODIUM 100 MG (COLACE) CAP PO SCH (08:09)
[2021-07-07 08:10] VITALS: BP 115/56
[2021-07-07] MEDS: oxyCODONE/APAP 10/325MG (PERCOCET 10) TABLET PO PRN (10:42)
== END 2021-07-07 11:50 | disposition home or self-care (01) | DRG 788 ==
LOC: LDRP 09:59
PROVIDERS: ADMIT Obstetrics & Gynecology; ATTEND Obstetrics & Gynecology
PROC: 10D00Z1 Extraction of Products of Conception, Low, Open Approach (ICD-10-PCS; principal; 2021-07-05 12:45)
DX: O32.1XX0 Maternal care for breech presentation, not applicable or unspecified (principal); Z3A.39 39 weeks gestation of pregnancy; Z37.0 Single live birth; O32.9XX0 Maternal care for malpresentation of fetus, unspecified, not applicable or unspecified
CPT/HCPCS: 36415; 85025; 86850; 86900; 86901; 94664

== ENCOUNTER 2021-10-02 15:04 | Emergency (ER) | payer OTHER, MEDICAID ==
[~2021-10-02] VITALS: Ht 154.9 cm; Wt 63.6 kg
[~2021-10-02 15:04] MED LIST changes: -CITA10TA7; +CITA10TA9; +DOCU-239 PO; +IBUP-1780 PO; +OXYC1TAB12 PO
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
[2021-10-02 17:00] VITALS: BP 132/82
== END 2021-10-02 17:00 | disposition home or self-care (01) ==
LOC: EDUNIT# 15:04 → ER 15:06
DX: M54.2 Cervicalgia (principal); G80.9 Cerebral palsy, unspecified; Z86.73 Personal history of transient ischemic attack (TIA), and cerebral infarction without residual deficits
CPT/HCPCS: 72125; 84703

== ENCOUNTER 2022-03-06 19:58 | Emergency (ER) | payer MEDICAID ==
--- NOTE | 2022-03-06 20:27 | ED Back Pain ---
General Chief Complaint: Back Problems Stated Complaint: LOWER BACK PAIN Source of Information: Patient Exam Limitations: No Limitations History of Present Illness Date Seen by Provider: March 06, 2022 Time Seen by Provider: 20:07 Initial Comments This is a 26-year-old female who presented to the ER via POV with complaints of low back pain that started this morning. States whenever she was at work she was experiencing a dull ache in her mid lower back. Allergies and Home Medications Allergies Coded Allergies: NKANo Known Allergies (Verified Allergy, Mild, 04/20/18) peach (Unverified Allergy, Unknown, 04/22/16) FROM UNCODED ALLERGIES Patient Home Medication List Docusate Sodium (Dok) 100 Mg Capsule, 100 MG PO BID Prescribed by: EDUARDO WOLFE on 07/05/21 1432 Ibuprofen (Ibuprofen) 800 Mg Tablet, 800 MG PO Q6HR Prescribed by: EDUARDO WOLFE on 07/05/21 1432 Oxycodone HCl/Acetaminophen (Percocet 10-325 mg Tablet) 1 Each Tablet, 1 TAB PO Q4H PRN for PAIN-MODERATE (5-7) Prescribed by: EDUARDO WOLFE on 07/05/21 1432 Vit W-Ca,Fe,FA(<1 mg) ( Vitamins) 1 Each Tablet, 1 EACH PO DAILY, (Reported) Entered as Reported by: AMAN PELAEZ on 04/20/182210 Sulfamethoxazole/Trimethoprim (Sulfamethoxazole-Tmp Ss Tablet) 400 Mg-80 Mg Tablet, 1 EACH PO BID Prescribed by: JESUS SINGH on 03/06/222116 Past Kdhooyv-Lfckph-Cmwxhz Hx Patient Social History Tobacco Use?: No Use of E-Cig and/or Vaping dev: No Substance use?: No Alcohol Use?: No Pt feels they are or have been: No Immunizations Up To Date Tetanus Booster (TDap): Unknown PED Vaccines UTD: Yes Seasonal Allergies Seasonal Allergies: No Past Medical History Surgery/Hospitalization HX: MILD CEREBRAL PALSEY, HEART CONDITION Surgeries: Yes (REPAIR OF ASD/VSD, MUSCULOSKELETAL SURGERY TO STRAIGHTEN LEFT ARM) Adenoidectomy, Cardiac, Tonsillectomy Respiratory: No Cardiac: Yes (ASD and VSD REPAIRED) Congenital Heart Disease 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) Cerebral Palsy, Stroke Reproductive Disorders: No Female Reproductive Disorders: Denies Sexually Transmitted Disease: No HIV/AIDS: No Gastrointestinal: No Musculoskeletal: No Endocrine: No HEENT: No Cancer: No Psychosocial: No Integumentary: No Blood Disorders: No Adverse Reaction/Blood Tranf: No Family Medical History Asthma (FATHER) Cervical cancer 19 MOTHER Diabetes mellitus (PGM MGF) FH: cancer (FATHER MGF) FH: heart disease (MGM PGM MGF PGF BROTHER) FH: stroke (MGM) Hypertension (FATHER PGM MGF PGF) Osteoporosis (FATHER) Tetralogy of Fallot (BROTHER) Physical Exam Vital Signs Capillary Refill : Height, Weight, BMI Height: 5'2.00" Weight: 139lbs. 4.0oz. 63.214846ll; 26.00 BMI Method:Stated Progress/Results/Core Measures Results/Orders Lab Results Laboratory Tests Test 03/06/22 20:26 03/06/22 20:33 Range/Units Urine Color YELLOW Urine Clarity SL CLOUDY Urine pH 6.0 5-9 Urine Specific [place] 1.025 H 1.016-1.022 Urine Protein NEGATIVE NEGATIVE Urine Glucose (UA) NEGATIVE NEGATIVE Urine Ketones 1+ H NEGATIVE Urine Nitrite NEGATIVE NEGATIVE Urine Bilirubin NEGATIVE NEGATIVE Urine Urobilinogen 2.0 < = 1.0 MG/DL Urine Leukocyte Esterase TRACE H NEGATIVE Urine RBC (Auto) TRACE-I H NEGATIVE Urine RBC 0-2 /HPF Urine WBC 5-10 H /HPF Urine Squamous Epithelial Cells 2-5 /HPF Urine Renal Epithelial Cells NONE /HPF Urine Crystals NONE /LPF Urine Bacteria LARGE H /HPF Urine Casts NONE /LPF Urine Mucus SMALL H /LPF Urine Culture Indicated YES White Blood Count 7.3 4.3-11.0 10^3/uL Red Blood Count 4.50 3.80-5.11 10^6/uL Hemoglobin 13.8 11.5-16.0 g/dL Hematocrit 40 35-52 % Mean Corpuscular Volume 88 80-99 fL Mean Corpuscular Hemoglobin 31 25-34 pg Mean Corpuscular Hemoglobin Concent 35 32-36 g/dL Red Cell Distribution Width 12.3 10.0-14.5 % Platelet Count 233 130-400 10^3/uL Mean Platelet Volume 10.0 9.0-12.2 fL Immature Granulocyte % (Auto) 0 % Neutrophils (%) (Auto) 75 42-75 % Lymphocytes (%) (Auto) 9 L 12-44 % Monocytes (%) (Auto) 11 0-12 % Eosinophils (%) (Auto) 4 0-10 % Basophils (%) (Auto) 1 0-10 % Neutrophils # (Auto) 5.5 1.8-7.8 10^3/uL Lymphocytes # (Auto) 0.7 L 1.0-4.0 10^3/uL Monocytes # (Auto) 0.8 0.0-1.0 10^3/uL Eosinophils # (Auto) 0.3 0.0-0.3 10^3/uL Basophils # (Auto) 0.0 0.0-0.1 10^3/uL Immature Granulocyte # (Auto) 0.0 0.0-0.1 10^3/uL Sodium Level 136 135-145 MMOL/L Potassium Level 3.7 3.6-5.0 MMOL/L Chloride Level 105 98-107 MMOL/L Carbon Dioxide Level 17 L 21-32 MMOL/L Anion Gap 14 5-14 MMOL/L Blood Urea Nitrogen 14 7-18 MG/DL Creatinine 0.68 0.60-1.30 MG/DL Estimat Glomerular Filtration Rate 125 BUN/Creatinine Ratio 21 Glucose Level 95 70-105 MG/DL Calcium Level 9.1 8.5-10.1 MG/DL Corrected Calcium 8.5-10.1 MG/DL Total Bilirubin 0.5 0.1-1.0 MG/DL Aspartate Amino Transf (AST/SGOT) 23 5-34 U/L Alanine Aminotransferase (ALT/SGPT) 16 0-55 U/L Alkaline Phosphatase 40 40-136 U/L Total Protein 8.3 H 6.4-8.2 GM/DL Albumin 4.8 H 3.2-4.5 GM/DL My Orders Orders - 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 Ua Culture If Indicated (03/06/22 20:15) Urine Bedside (03/06/22 20:15) Ed Iv/Invasive Line Start (03/06/22 20:16) Cbc With Automated Diff (03/06/22 20:16) Comprehensive Metabolic Panel (03/06/22 20:16) Ketorolac Injection (Toradol Injection) (03/06/22 20:30) Urine Culture (03/06/22 20:26) Ceftriaxone 1 Gm Pre-Mix (Rocephin 1 Gm (03/06/22 21:15) Medications Given in ED Current Medications Medications Dose Ordered Sig/Micheal Route Start Time Stop Time Status Last Admin Dose Admin Ketorolac Tromethamine 30 mg ONCE ONCE IVP 03/06/22 20:30 03/06/22 20:31 DC 03/06/22 20:39 30 MG Departure Impression Primary Impression: UTI (urinary tract infection) Additional Impression: Lumbago Disposition: HOME, SELF-CARE Condition: Improved Departure-Patient Inst. Decision time for Depature: 21:13 Referrals: TESSIE RALPH MD (PCP/Family) Primary Care Physician Patient Instructions: Low Back Pain ED, Urinary Tract Infection, Adult ED Add. Discharge Instructions: Plan: 1. Take antibiotics as directed and complete full course. 2. Drink plenty of fluids while taking. 3. May use Ibuprofen 600mg every 6 hours as needed for comfort. 4. May use heat 20 minutes at a time for comfort. 5. Return for any new, concerning, or worsening symptoms. All discharge instructions reviewed with patient and/or family. Voiced understanding. Scripts Sulfamethoxazole/Trimethoprim (Sulfamethoxazole-Tmp Ss Tablet) 400 Mg-80 Mg Tablet 1 EACH PO BID for 7 Days, #14 TAB 0 Refills Prov: JESUS SINGH APRN 03/06/22 Work/School Note: Work Release Form Date Seen in the Emergency Department: March 06, 2022 Return to Work: March 08, 2022 Restrictions: No Restrictions 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 March 06, 2022 20:27
[2022-03-06] MEDS ORDERED: KETOROLAC 30 MG/ML VIAL IVP ONE (20:30)
[2022-03-06 20:36] LABS: BILIRUBIN,URINE NEGATIVE (NEGATIVE); CLARITY,URINE SL CLOUDY; COLOR,URINE YELLOW; GLUCOSE, URINE (UA) NEGATIVE (NEGATIVE); KETONES,URINE 1+ (NEGATIVE); LEUKOCYTE ESTERASE ,URINE TRACE (NEGATIVE); NITRITE,URINE NEGATIVE (NEGATIVE); PROTEIN,URINE NEGATIVE (NEGATIVE)
[2022-03-06 20:38] LABS: BASOPHILS % (AUTO) 1 % (0-10); EOSINOPHILS # (AUTO) 0.3 10^3/uL (0.0-0.3); EOSINOPHILS % (AUTO) 4 % (0-10); HEMATOCRIT 40 % (35-52); HEMOGLOBIN 13.8 g/dL (11.5-16.0); LYMPHOCYTES # (AUTO) 0.7 10^3/uL (1.0-4.0); LYMPHOCYTES % (AUTO) 9 % (12-44); MEAN CORPUSCULAR HEMOGLOBIN 31 pg (25-34); MEAN CORPUSCULAR HGB CONC 35 g/dL (32-36); MEAN CORPUSCULAR VOLUME 88 fL (80-99); MONOCYTES # (AUTO) 0.8 10^3/uL (0.0-1.0); MONOCYTES % (AUTO) 11 % (0-12); NEUTROPHILS # (AUTO) 5.5 10^3/uL (1.8-7.8); NEUTROPHILS % (AUTO) 75 % (42-75); PLATELET COUNT 233 10^3/uL (130-400); WHITE BLOOD COUNT 7.3 10^3/uL (4.3-11.0)
[2022-03-06 20:44] LABS: BACTERIA,URINE LARGE /HPF; RBC,URINE 0-2 /HPF
[2022-03-06 20:47] LABS: ALBUMIN 4.8 GM/DL (3.2-4.5); CHLORIDE 105 MMOL/L (98-107); POTASSIUM 3.7 MMOL/L (3.6-5.0); SODIUM 136 MMOL/L (135-145)
[2022-03-06 20:48] LABS: CALCIUM 9.1 MG/DL (8.5-10.1)
[2022-03-06 20:49] LABS: GLUCOSE 95 MG/DL (70-105)
[2022-03-06 20:50] LABS: TOTAL PROTEIN 8.3 GM/DL (6.4-8.2)
[2022-03-06 20:51] LABS: BILIRUBIN,TOTAL 0.5 MG/DL (0.1-1.0); CARBON DIOXIDE 17 MMOL/L (21-32)
[2022-03-06 20:53] LABS: ALKALINE PHOSPHATASE 40 U/L (40-136); CREATININE SERUM 0.68 MG/DL (0.60-1.30); GFR ESTIMATED 125
[2022-03-06 20:54] LABS: BUN/CREATININE RATIO 21
[2022-03-06 20:56] LABS: ALANINE AMINOTRANSFERASE 16 U/L (0-55)
[2022-03-06] MEDS ORDERED: cefTRIAXone 1 GM PRE-MIX 50 ML IV ONE (21:15)
[2022-03-06] MEDS ORDERED: SULF-11 PO (21:17)
[2022-03-06] MEDS ORDERED: TRIM/SULFAMETH 160/800 (SEPTRA DS) TAB PO ONE (21:45)
[2022-03-06 21:50] VITALS: BP 130/74
== END 2022-03-06 21:52 | disposition home or self-care (01) ==
LOC: EDUNIT# 19:58 → ER 20:00
DX: N39.0 Urinary tract infection, site not specified (principal)
CPT/HCPCS: 36415; 80053; 81000; 84703; 85025; 87088

== ENCOUNTER 2023-06-03 22:30 | Emergency (ER) | payer MEDICAID ==
[~2023-06-03 22:30] MED LIST changes: +SULF-11 PO
--- NOTE | 2023-06-03 22:45 | ED Upper Extremity ---
General Stated Complaint: RIGHT WRIST PAIN Source: patient Exam Limitations: no limitations History of Present Illness Date Seen by Provider: Jun 03, 2023 Time Seen by Provider: 22:45 Initial Comments Patient is a 7-year-old female who presents to the emergency department with a chief complaint of right wrist and forearm pain. She was outside feeding her goats this evening when she tripped and fell and she is not sure if the goat stepped on her arm or not. She points to the mid forearm as the source of her pain. Denies any numbness tingling or weakness to the hand. No pain in her shoulder. No other complaints of injury. She has not taken anything for the pain. Movement makes the pain worse holding still makes it feel better Onset: just prior to arrival (about 1.5hr ago) Severity: mild Pain/Injury Location: right wrist Method of Injury: fell Modifying Factors: Improves With Immobilization; Worse With Movement Allergies and Home Medications Allergies Coded Allergies: NKANo Known Allergies (Verified Allergy, Mild, 04/20/18) peach (Unverified Allergy, Unknown, 04/22/16) FROM UNCODED ALLERGIES Patient Home Medication List Home Medication List Reviewed: Yes Docusate Sodium (Dok) 100 Mg Capsule, 100 MG PO BID Prescribed by: EDUARDO WOLFE on 07/05/21 143 Ibuprofen (Ibuprofen) 800 Mg Tablet, 800 MG PO Q6HR Prescribed by: EDUARDO WOLFE on 07/05/21 143 Oxycodone HCl/Acetaminophen (Percocet 10-325 mg Tablet) 1 Each Tablet, 1 TAB PO Q4H PRN for PAIN-MODERATE (5-7) Prescribed by: EDUARDO WOLFE on 07/05/21 1432 Vit W-Ca,Fe,FA(<1 mg) ( Vitamins) 1 Each Tablet, 1 EACH PO DAILY, (Reported) Entered as Reported by: AMAN PELAEZ on 04/20/182210 Sulfamethoxazole/Trimethoprim (Sulfamethoxazole-Tmp Ss Tablet) 400 Mg-80 Mg Tablet, 1 EACH PO BID Prescribed by: JESUS SINGH on 03/06/222116 Review of Systems Constitutional: see HPI EENTM: no symptoms reported Gastrointestinal: no symptoms reported Musculoskeletal: other (pain to right forearm and wrist) Skin: no symptoms reported Psychiatric/Neurological: Other (fingers of right hand feel "cold") Past Qydronl-Xdzmdi-Phainl Hx Immunizations Up To Date Tetanus Booster (TDap): Unknown PED Vaccines UTD: Yes Seasonal Allergies Seasonal Allergies: No Past Medical History Surgery/Hospitalization HX: MILD CEREBRAL PALSEY, HEART CONDITION Surgeries: Yes (REPAIR OF ASD/VSD, MUSCULOSKELETAL SURGERY TO STRAIGHTEN LEFT ARM) Adenoidectomy, Cardiac, Tonsillectomy Respiratory: No Cardiac: Yes (ASD and VSD REPAIRED) Congenital Heart Disease 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) Cerebral Palsy, Stroke Reproductive Disorders: No Female Reproductive Disorders: Denies Sexually Transmitted Disease: No HIV/AIDS: No Gastrointestinal: No Musculoskeletal: No Endocrine: No HEENT: No Cancer: No Psychosocial: No Integumentary: No Blood Disorders: No Adverse Reaction/Blood Tranf: No Family Medical History Asthma (FATHER) Cervical cancer 19 MOTHER Diabetes mellitus (PGM MGF) FH: cancer (FATHER MGF) FH: heart disease (MGM PGM MGF PGF BROTHER) FH: stroke (MGM) Hypertension (FATHER PGM MGF PGF) Osteoporosis (FATHER) Tetralogy of Fallot (BROTHER) Physical Exam Vital Signs Vital Signs - First Documented 06/03/23 22:43 Pulse 84 Resp 16 B/P (MAP) 143/77 (99) Pulse Ox 100 O2 Delivery Room Air Capillary Refill : Height, Weight, BMI Height: 5'2.00" Weight: 139lbs. 4.0oz. 63.038881bg; 26.00 BMI Method:Stated General Appearance: WD/WN, no apparent distress HEENT: PERRL/EOMI Cardiovascular: regular rate, rhythm Respiratory: no respiratory distress, no accessory muscle use Shoulder: normal inspection, non-tender, no evidence of injury, normal ROM Elbow/Forearm: normal inspection, soft tissue tenderness (soft tissue tenderness mid right forearm, no significant swelling; ) Hand: normal inspection, bone tenderness (over the dorsum of the right wrist; no crepitance or obvious deformity; pulses intact; sensation intact) Neurologic/Psychiatric: no motor/sensory deficits, alert, normal mood/affect, oriented x 3 Skin: normal color, warm/dry Progress/Results/Core Measures Results/Orders My Orders Orders - DARRON DE LOS SANTOS MD Ibuprofen Tablet (Ibuprofen Tablet) (06/03/23 23:00) Forearm, Right, 2 Views (06/03/23 22:48) Medications Given in ED Current Medications Medications Dose Ordered Sig/Micheal Route Start Time Stop Time Status Last Admin Dose Admin Ibuprofen 400 mg ONCE ONCE PO 06/03/23 23:00 06/03/23 23:01 DC 06/03/23 23:03 400 MG Vital Signs/I&O 06/03/23 06/03/23 22:43 23:45 Pulse 84 84 Resp 16 16 B/P (MAP) 143/77 (99) 143/77 Pulse Ox 100 100 O2 Delivery Room Air Room Air Progress Progress Note : Progress Note Patient seen and evaluated by me. Pertinent physical exam findings tenderness to the mid dorsal right forearm. No overlying abrasions, ecchymosis, no swelling. No deformity is observed. Distal neurovascularly intact to the right upper extremity. The rest of her exam is unremarkable. Differential diagnosis based on history and physical exam, contusion of the right forearm versus fracture. 2 views of the right forearm are obtained. No evidence of fracture. No foreign body, no soft tissue anomaly. Patient is treated with 400 mg of oral ibuprofen. She is provided an ice pack. Conservative care recommended. Return precautions provided in both verbal and written format. All questions were sought and answered. Patient is stable for discharge. Departure Impression Primary Impression: Contusion of forearm, right Qualified Codes: S50.11XA - Contusion of right forearm, initial encounter Disposition: 01 HOME, SELF-CARE Condition: Stable Departure-Patient Inst. Decision time for Depature: 23:35 Referrals: SELINA MALONE APRN (PCP/Family) Primary Care Physician Patient Instructions: Contusion (DC) Add. Discharge Instructions: Ice pack to the sore area of your forearm, 20 min at a time for the next 24 hours every 3 hours or so. Over the counter Ibuprofen 2 pills (400mg) every 6 hours with food as needed for pain. Follow up with your primary care doctor as needed. Work/School Note: Work Release Form Date Seen in the Emergency Department: Jun 03, 2023 Return to Work: Jun 04, 2023 Copy Copies To 1: VERONA HUI KATHRYN M MD Jun 03, 2023 22:45
[2023-06-03] MEDS ORDERED: IBUPROFEN 200 MG TABLET PO ONE (23:00)
[2023-06-03 23:45] VITALS: BP 143/77
--- NOTE | 2023-06-04 07:50 | Diagnostic Imaging Report ---
EXAMINATION: Right forearm radiographs, 2 views. COMPARISON: None. HISTORY: 27-year-old female, right forearm pain after fall. FINDINGS: There is no identified acute fracture. There is no radiopaque foreign body. There is no large elbow joint effusion. IMPRESSION: No identified acute bony abnormality of the right forearm. Dictated by: Dictated on workstation # [id number]
== END 2023-06-03 23:45 | disposition home or self-care (01) ==
LOC: EDUNIT# 22:30 → ER 22:32
DX: S50.11XA Contusion of right forearm, initial encounter (principal); W01.0XXA Fall on same level from slipping, tripping and stumbling without subsequent striking against object, initial encounter
CPT/HCPCS: 73090; 99283